=== PATIENT | female | born 1945 | race Caucasian/White ===

== ENCOUNTER 2019-10-23 09:47 | Outpatient (CLI) | payer MEDICARE, SELFPAY ==
--- NOTE | ~2019-10-23 | XR_ITS ---
EXAMINATION: XR TMJ BI DATE: 10/23/2019 10:20 INDICATION: Left jaw pain. TECHNIQUE: 5 views of the temporomandibular joints including open and closed mouth views were obtaine d. COMPARISON: Mandible radiographs 12/17/2016, head CT 06/30/2018 FINDINGS: The mandibular condyles are normal in morphology. There is normal anterior translation of t he mandibular condyles in the open-mouth position. IMPRESSION: 1. Normal temporomandibular joints. Reviewed, dictated and finalized at location A.
== END 2019-10-23 09:48 | disposition home or self-care (01) ==
PROVIDERS: PCP Internal Medicine; Visit Provider Internal Medicine
DX: R68.84 Jaw pain (principal)
CPT/HCPCS: 70330

== ENCOUNTER 2020-01-05 09:25 | Outpatient (CLI) | payer MEDICARE, SELFPAY ==
--- NOTE | ~2020-01-05 | XR_ITS ---
EXAMINATION: XR barium swallow EXAM DATE: 01/05/2020 10:08 INDICATION: Dysphagia, states has episodes where she eats something and then regurgitates it. TECHNIQUE: Standard thick followed by thin contrast barium esophagram examination was performed. The DAP for this procedure was 0.6 Gycm2. There is no prior study for comparison. FINDINGS: The pharynx is symmetric and without evidence of mass lesion or mucosal irregularity. Ther e is no esophageal stricture or mass identified. There are no esophageal diverticula. Gastroesophag eal junction is normal in appearance. IMPRESSION: Normal exam. Reviewed, dictated and finalized at location A. IMPRESSION: Normal exam.
== END 2020-01-05 09:26 | disposition home or self-care (01) ==
PROVIDERS: PCP Internal Medicine; Visit Provider Internal Medicine
DX: R13.10 Dysphagia, unspecified (principal)
CPT/HCPCS: 74220

== ENCOUNTER 2020-01-07 09:51 | Outpatient (CLI) | payer MEDICARE, SELFPAY ==
--- NOTE | ~2020-01-07 | CT_ITS ---
EXAMINATION:CT lung screening DATE: 01/07/2020 10:17 INDICATION: Personal history of tobacco dependence. Current smoker with 32 pack year history. TECHNIQUE: Computed tomography (CT) of the chest was performed without intravenous contrast. Automate d exposure control and iterative reconstruction technique were employed. The dose-length product (DLP ) was 58.20 mGy-cm. COMPARISON: Chest CT 12/19/2017 FINDINGS: There is mild emphysema. There is mild atelectasis bilaterally. There are mild chronic clarence pheral groundglass opacities in the inferior lungs, likely desquamative interstitial pneumonia (DIP) or nonspecific interstitial pneumonia (NSIP). No honeycombing. There is mild bronchiectasis and scarr ing in the inferior lingula. No pleural effusion. The heart size is normal. There are coronary artery calcifications. No pericardial effusion. There is a 1.6 cm cyst in the liver. There is severe cervic al spondylosis and mild thoracic spondylosis. IMPRESSION: 1. Lung-RADS category 2: Benign appearance or behavior. Continue annual screening with noncontrast lo w-dose chest CT in 12 months. Reviewed, dictated and finalized at location A. IMPRESSION: 1. Lung-RADS category 2: Benign appearance or behavior. Continue annual screeni ng with noncontrast low-dose chest CT in 12 months.
== END 2020-01-07 09:52 | disposition home or self-care (01) ==
LOC: ANHIMG 09:58
PROVIDERS: PCP Internal Medicine; Visit Provider Internal Medicine
DX: Z87.891 Personal history of nicotine dependence (principal)
CPT/HCPCS: G0297

== ENCOUNTER → 2020-01-22 12:02 | Outpatient (CLI) | payer MEDICARE, SELFPAY ==
--- NOTE | ~2020-01-22 | MM_ITS ---
EXAMINATION: MM diagnostic ricardo BI w love HISTORY: Palpable right breast abnormality TECHNIQUE: Additional 3-D tomosynthesis images of the breasts were performed and synthetic 2-D images were generated. CAD analysis was submitted and interpreted. COMPARISON: Comparison to multiple prior studies sequentially, with oldest reviewed study dated 12/26. BREAST PARENCHYMAL COMPOSITION: Breast composed of scattered areas of fibroglandular density. FINDINGS: There are no suspicious masses, calcifications or architectural distortion in either breast to suggest malignancy. IMPRESSION: 1. No mammographic evidence for malignancy in either breast. 2. Targeted right breast ultrasound recommended for complete evaluation of palpable abnormality. BI-RADS Category 0: Incomplete: Needs additional imaging evaluation. Reviewed, dictated and finalized at location A. IMPRESSION: 1. No mammographic evidence for malignancy in either breast. 2. Targeted right breast ultrasound recommended for complete evaluation of palp able abnormality. BI-RADS Category 0: Incomplete: Needs additional imaging evaluation.
--- NOTE | ~2020-01-22 | DEXA_ITS ---
Bone Density Report Name: Radha Sánchez Age: 74 Sex: Female Ethnicity: White Date of : 1945 Indication: osteopenia; postmenopausal Referring Provider: STEPH PANDA Study: Bone densitometry was performed. Exam Date: January 22, 2020 Accession number: [id number] Bone Density: Region BMD T-score Z-score Classification AP Spine (L1, L2, L3) 0.832 -1.7 0.7 Osteopenia Femoral Neck (Left) 0.682 -1.5 0.6 Osteopenia Total Hip (Left) 0.724 -1.8 0.0 Osteopenia World Health Organization criteria for BMD impression classify patients as: Normal (T-score at or above -1.0), Osteopenia (T-score between -1.0 and -2.5), or Osteoporosis (T-score at or below -2.5). 10-year Fracture Risk(1): Major Osteoporotic Fracture 12% Hip Fracture 3.8% Reported Risk Factors: [place] (), Neck BMD=0.682, BMI=26.4, smoking (1) FRAX(R) Version 3.08. Fracture probability calculated for an untreated patient. Fracture probability may be lower if the patient has received treatment. Previous Exams: Region Exam Age BMD T-score BMD Change BMD Change Date g/cm2 vs Baseline vs Previous AP Spine(L1, L2, L3) 01/22/2020 74 0.832 -1.7 -0.054* -0.054* 06/05/2004 58 0.886 -1.2 Total Hip(Left) 01/22/2020 74 0.724 -1.8 -0.255* -0.255* 06/05/2004 58 0.979 0.3 *Denotes significance at 95% confidence level, LSC for AP Spine = 0.022 g/cm2, LSC for Total Hip = 0.027 g/cm2 Clinical Information Provided by Patient: Smokes Patient maximum height was 62 Menopause Age: 53 No regular weight bearing exercise Does not regularly consume dairy products Drinks caffeinated beverages Onset of menses at age 12 Number of children 3 Impression: The patient has low bone mass, based on the Left Total Hip T-score. The patient has an estimated ten-year risk of hip fracture of 3.8% and an estimated ten-year risk of major fracture of 12%, based on the WHO FRAX algorithm. The patient has risk factors, including: smoking. The BMD for the AP Spine(L1, L2, L3) decreased, changing by -0.054 since the last DXA exam. The BMD for the Total Hip(Left) decreased, changing by -0.255 since the last DXA exam. Discussion: BONE DENSITY IS LOW AT ONE OR MORE SKELETAL SITES. THE PATIENT'S BMD AND CLINICAL RISK FACTORS CONTRIBUTE TO THIS PATIENT'S INCREASED RISK OF FRACTURE. This patient's lowest T-score is low at one or more skeletal sites. It meets the World Health Organization's (WHO) criteria for ?low bone mass? (T-score between -1.0 and -2.5).
== END ==
PROVIDERS: PCP Internal Medicine; Visit Provider Internal Medicine
DX: R92.8 Other abnormal and inconclusive findings on diagnostic imaging of breast (principal); Z78.0 Asymptomatic menopausal state; M85.88 Other specified disorders of bone density and structure, other site
CPT/HCPCS: 77062; 77066; 77080; G0279

== ENCOUNTER → 2020-01-26 09:05 | Outpatient (CLI) | payer MEDICARE, SELFPAY ==
--- NOTE | ~2020-01-26 | US_ITS ---
EXAMINATION: US breast RT limited HISTORY: Palpable lump of the inner right breast at the 3:00 location TECHNIQUE: Limited right breast ultrasound is performed. FINDINGS: There is no evidence of focal abnormal cystic or solid mass in the vicinity of the reported palpable abnormality of concern. IMPRESSION: No specific sonographic correlate is identified for the reported palpable abnormality of concern. Fur ther evaluation at this time should be based on clinical assessment. Continued follow-up physical exa mination is recommended. BI-RADS Category 1: Negative Reviewed, dictated and finalized at location A. IMPRESSION: No specific sonographic correlate is identified for the reported palpable abnor mality of concern. Further evaluation at this time should be based on clinical assessment. Continued follow-up physical examination is recommended. BI-RADS Category 1: Negative
== END ==
PROVIDERS: Visit Provider Internal Medicine
DX: R92.8 Other abnormal and inconclusive findings on diagnostic imaging of breast (principal)
CPT/HCPCS: 76642

== ENCOUNTER 2020-02-03 08:48 | Outpatient (CLI) | payer MEDICARE, SELFPAY ==
--- NOTE | ~2020-02-03 | US_ITS ---
EXAMINATION: US carotid duplex BI DATE: 02/03/2020 09:30 INDICATION: Carotid bruit. Dizziness. TECHNIQUE: Grayscale, color Doppler, and pulsed Doppler images of the cervical carotid arteries were obtained. The degree of vessel stenosis is placed in one of the following categories: normal, <50%, 5 0-69%, >=70% but less than near-occlusion, near-occlusion, or total occlusion. Note that percent sten osis relative to normal distal artery lumen diameter is indirectly measured from velocity measurement s as described by Manuel, et al. Radiology 2003; 229:340-346. COMPARISON: None. FINDINGS: Cardiac arrhythmias present. RIGHT: The right common carotid artery (CCA) peak systolic velocity (PSV) is 86 cm/s. The right internal car otid artery (ICA) PSV is 113 cm/s. The right ICA end-diastolic velocity (EDV) is 29 cm/s. The right I CA/CCA PSV ratio is 1.3. Grayscale and color Doppler images yield an estimate of <50% diameter reduct ion from plaque in the ICA. The external carotid artery (ECA) PSV is 68 cm/s. There is antegrade flow in the right vertebral artery. LEFT: The left CCA PSV is 90 cm/s. The left ICA PSV is 107 cm/s. The left ICA EDV is 43 cm/s. The left ICA/ CCA PSV ratio is 1.2. Grayscale and color Doppler images yield an estimate of <50% diameter reduction from plaque in the ICA. The ECA PSV is 90 cm/s. There is antegrade flow in the left vertebral artery . IMPRESSION: 1. <50% stenosis in the right internal carotid artery. 2. <50% stenosis in the left internal carotid artery. 3. Cardiac arrhythmias present. Correlate with EKG. Reviewed, dictated and finalized at location A.
== END 2020-02-03 08:49 | disposition home or self-care (01) ==
PROVIDERS: PCP Internal Medicine; Visit Provider Internal Medicine
DX: R09.89 Other specified symptoms and signs involving the circulatory and respiratory systems (principal); I65.23 Occlusion and stenosis of bilateral carotid arteries
CPT/HCPCS: 93880

== ENCOUNTER → 2020-02-10 10:15 | Outpatient (CLI) | payer MEDICARE, SELFPAY ==
--- NOTE | ~2020-02-10 | XR_ITS ---
EXAMINATION: XR sinus min 3V DATE: 02/10/2020 11:33 INDICATION: Headache. Dysphagia. TECHNIQUE: 5 views of the paranasal sinuses were obtained. COMPARISON: Head CT 06/30/2018 FINDINGS: There is leftward deviation of the nasal septum. No fracture. The paranasal sinuses are shereen ar. IMPRESSION: 1. Leftward deviation of the nasal septum. Reviewed, dictated and finalized at location A.
== END ==
PROVIDERS: Visit Provider Internal Medicine
DX: R13.10 Dysphagia, unspecified (principal); J34.2 Deviated nasal septum
CPT/HCPCS: 70220

== ENCOUNTER → 2020-02-11 12:34 | Outpatient (CLI) | payer MEDICARE, SELFPAY ==
--- NOTE | ~2020-02-11 | MR_ITS ---
EXAMINATION: MR thoracic spine wo con DATE: 02/11/2020 13:44 INDICATION: Chest pain. Back pain. TECHNIQUE: Magnetic resonance imaging (MRI) of the thoracic spine was performed without intravenous c ontrast. Sagittal localizer T1-weighted FSE of the cervical spine was obtained. Thoracic spine sequen demetrio included sagittal T2-weighted FSE, sagittal T1-weighted FSE, sagittal T2-weighted FS FSE, and axi al T2-weighted FSE. COMPARISON: Chest CT 01/07/2020 FINDINGS: There is 6 degrees dextrocurvature of thoracic spine. Vertebral body heights and interverte bral disc heights are normal. At T9-T10, there is a central protrusion with mild central canal stenos is. There is multilevel mild to moderate facet joint osteoarthritis. There is mild neural foraminal s tenosis on the right at T1-T2, T2-T3, andT3-T4 and on the left at T3-T4, T4-T5, and T5-T6. The spinal cord signal intensity is normal. The conus medullaris is at T12-L1. There is a 1.7 cm cyst in the li karla. There are cysts in the kidneys measuring up to 1.7 cm on the left. IMPRESSION: 1. Mild thoracic spondylosis. Reviewed, dictated and finalized at location A.
== END ==
PROVIDERS: PCP Internal Medicine; Visit Provider Internal Medicine
DX: R07.9 Chest pain, unspecified (principal); M47.894 Other spondylosis, thoracic region
CPT/HCPCS: 72146

== ENCOUNTER 2020-12-14 12:33 | Outpatient (CLI) | payer MEDICARE, SELFPAY ==
--- NOTE | ~2020-12-14 | XR_ITS ---
XR chest 2V DATE: 12/14/2020 13:09 INDICATION: Left-sided chest pain TECHNIQUE: PA and lateral views COMPARISON: 01/07/2020 CT lung screening 06/13/2015 2 view chest FINDINGS: Normal heart size. Aortic calcification and unfolding. No hilar or mediastinal enlargement. Bilateral hyperinflation. No pulmonary infiltrate or consolidation, pleural effusion or pulmonary vas cular congestion or pneumothorax. Diffuse osteopenia. IMPRESSION: Moderate bilateral hyperinflation No active pulmonary disease Aortic atherosclerosis Reviewed, dictated and finalized at location A.
== END 2020-12-14 12:34 | disposition home or self-care (01) ==
PROVIDERS: PCP Internal Medicine; Visit Provider Internal Medicine
DX: R07.89 Other chest pain (principal); I70.0 Atherosclerosis of aorta
CPT/HCPCS: 71046

== ENCOUNTER → 2021-01-11 11:44 | Outpatient (CLI) | payer MEDICARE, SELFPAY ==
--- NOTE | ~2021-01-11 | CT_ITS ---
EXAMINATION: CT lung screening DATE: 01/11/2021 12:09 INDICATION: Personal history of tobacco dependence, current smoker with 33 pack year history TECHNIQUE: Computed tomography (CT) of the chest was performed without intravenous contrast. The dose -length product (DLP) was 41.97 mGy-cm. Automated exposure control and iterative reconstruction techn [employer] were employed. COMPARISON: 01/07/2020 FINDINGS: There is mild emphysema. There are unchanged subpleural reticular and groundglass opacities with a lower lung zone predominance, consistent with chronic interstitial lung disease. No suspiciou s pulmonary nodules are identified. There is no pleural effusion or pneumothorax. No pathologically e nlarged thoracic lymph nodes are identified. The heart size is normal. Calcified coronary artery athe rosclerosis is noted. There is a 1.6 cm cyst of the liver. There is severe lower cervical and mild th oracic spondylosis. IMPRESSION: 1. Lung-RADS category 1: Negative. Continue annual screening with noncontrast low-dose chest CT in 12 months. Reviewed, dictated and finalized at location A. IMPRESSION: 1. Lung-RADS category 1: Negative. Continue annual screening with noncontrast l ow-dose chest CT in 12 months.
== END ==
PROVIDERS: PCP Internal Medicine; Visit Provider Internal Medicine
DX: Z87.891 Personal history of nicotine dependence (principal)
CPT/HCPCS: 71271

== ENCOUNTER 2021-04-05 15:16 | Outpatient (CLI) | payer MEDICARE, SELFPAY ==
--- NOTE | ~2021-04-05 | MR_ITS ---
EXAMINATION: MR brain/brain stem wo/w con DATE: 04/05/2021 16:56 CDT INDICATION: Memory loss with brain fog. TECHNIQUE: Magnetic resonance imaging (MRI) of the brain and brainstem was performed without and with 11 cc MultiHance intravenous contrast. Sequences included sagittal and axial T1-weighted SE, axial d iffusion-weighted FS SE, axial T2*-weighted GRE, axial T2-weighted FLAIR Propeller, and axial T2-weig hted Propeller. Apparent diffusion coefficient (ADC) maps were created. COMPARISON: CT brain dated 06/30/2018 FINDINGS: The brain volume and ventricular system are within normal limits. The brain parenchymal si gnal intensity pattern and banegas/white matter is normal and there is no evidence of hemorrhage, space occupying masses or infarctions. The flow signal voids of the major arterial structures about the [place] and within the raghu r dural venous sinuses appear grossly unremarkable and patent. The seventh and eighth cranial nerve complexes are normal. The mid sagittal image demonstrates a normal craniovertebral junction and bernabe us callosum. There is a mucous retention cyst of the sphenoid sinus. No air-fluid levels. No abnormal contrast enhancement was appreciated. IMPRESSION: 1: Unremarkable MRI of the brain. Reviewed, dictated and finalized at location A.
[2021-04-05 16:14] LABS: Estimated Glomerular Filt Rate > 60
== END 2021-04-05 15:17 | disposition home or self-care (01) ==
LOC: ANHIMG 15:17
PROVIDERS: PCP Internal Medicine; Visit Provider Internal Medicine
DX: R41.89 Other symptoms and signs involving cognitive functions and awareness (principal); R41.3 Other amnesia
CPT/HCPCS: 70553; A9577

== ENCOUNTER 2021-08-29 09:53 | Outpatient (CLI) | payer MEDICARE, SELFPAY ==
--- NOTE | ~2021-08-29 | XR_ITS ---
EXAMINATION: XR shoulder LT min 2V EXAM DATE: 08/29/2021 10:32 INDICATION: Left shoulder pain, symptoms 6 months. TECHNIQUE: The following left shoulder projections obtained: frontal projection with internal rotatio n, frontal projection with external rotation, Grashey, and scapular Y view (4+ views). There is no p rior study for comparison. FINDINGS: No evidence of left shoulder rotator cuff calcific tendinosis. There is mild to moderate g lenohumeral joint, mild to moderate acromioclavicular joint primary osteoarthritis. There are no acut e fractures or dislocations identified. There is no subcutaneous gas. The soft tissue is unremarkab le. There are no radiopaque foreign bodies. 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 Reviewed, dictated and finalized at location G.
--- NOTE | ~2021-08-29 | XR_ITS ---
EXAMINATION: XR_CERV2-3V_CR EXAM DATE: 08/29/2021 10:31 INDICATION: No known recent injury provided at this time. Pain of the cervical spine, left-sided TECHNIQUE: Cervical spine frontal lateral, open-mouth odontoid projections. There is no prior study for comparison. FINDINGS: There is moderate disc disease at C5-6 and 6-7. The vertebral bodies are aligned in the AP dimension. There are no acute fractures identified. The odontoid process is intact. The lateral mas ses of C1 line up with C2. Prevertebral soft tissue and pre-dens space are within normal limits. Mode rate cervical arthropathy. IMPRESSION: Moderate cervical spondylosis. Reviewed, dictated and finalized at location .
--- NOTE | ~2021-08-29 | XR_ITS ---
EXAMINATION: XR thoracic spine 2V EXAM DATE: 08/29/2021 10:32 INDICATION: M54.9 - Dorsalgia, unspecified. TECHNIQUE: Frontal and lateral projections of the thoracic spine as well as lateral swimmers projecti on of the upper thoracic spine for interpretation. Comparison is made to prior examination from 016. FINDINGS: There is mild lower thoracic levoscoliosis. There is aortic arteriosclerosis. Mild mid tho racic disc disease. The vertebral body and disc heights are otherwise well maintained. The vertebral bodies are aligned in the AP dimension. There are no acute fractures identified. There are no bony er osions identified. Paraspinal soft tissue is unremarkable. IMPRESSION: 1. Mild thoracic spondylosis. Reviewed, dictated and finalized at location G.
== END 2021-08-29 09:54 | disposition home or self-care (01) ==
LOC: ANHIMG 10:00
PROVIDERS: PCP Internal Medicine; Visit Provider Internal Medicine
DX: M19.012 Primary osteoarthritis, left shoulder (principal); M47.813 Spondylosis without myelopathy or radiculopathy, cervicothoracic region
CPT/HCPCS: 72040; 72070; 73030

== ENCOUNTER → 2022-01-15 07:31 | Outpatient (CLI) | payer MEDICARE, SELFPAY ==
--- NOTE | ~2022-01-15 | MM_ITS ---
EXAMINATION: MM screening ricardo BI w love HISTORY: Screening mammogram, family history of breast cancer in her mother. TECHNIQUE: Craniocaudal and mediolateral oblique 3-D tomosynthesis images were obtained and synthetic 2-D images were generated. CAD analysis was submitted and interpreted. COMPARISON: 01/22/2020, 02/02/2019, 12/27/2017 BREAST PARENCHYMAL COMPOSITION: There are scattered areas of fibroglandular density. FINDINGS: There is no suspicious mass, calcification, or architectural distortion to suggest malignan cy in either breast. There has been no suspicious interval change. IMPRESSION: 1. No mammographic evidence of malignancy. 2. Recommend routine screening mammography in one year. BI-RADS Category 1: Negative Reviewed, dictated and finalized at location A.
--- NOTE | ~2022-01-15 | CT_ITS ---
EXAMINATION: CT lung screening DATE: 01/15/2022 08:22 INDICATION: Personal history of tobacco abuse TECHNIQUE: Computed tomography (CT) of the chest was performed without intravenous contrast. The dose -length product was 52.36 mGy-cm. Automated exposure control and iterative reconstruction technique w ere employed. COMPARISON: CT dated 01/11/2021 FINDINGS: No thoracic lymphadenopathy. There is atherosclerosis of the aorta and coronary arteries. T here is ectasia of the descending thoracic aorta. No significant pleural or pericardial effusion. No endobronchial lesions. There are small 1-2 mm subpleural nodules in the upper lobes. Mild emphysema. No endobronchial lesions. No pneumothorax. IMPRESSION: 1. Lung-RADS category 2: Benign appearance or behavior. Continue annual screening with noncontrast lo w-dose chest CT in 12 months. Reviewed, dictated and finalized at location A. IMPRESSION: 1. Lung-RADS category 2: Benign appearance or behavior. Continue annual screeni ng with noncontrast low-dose chest CT in 12 months.
== END ==
PROVIDERS: PCP Internal Medicine; Visit Provider Internal Medicine
DX: Z12.31 Encounter for screening mammogram for malignant neoplasm of breast (principal); Z87.891 Personal history of nicotine dependence
CPT/HCPCS: 71271; 77063; 77067

== ENCOUNTER 2022-02-14 10:29 | Outpatient (CLI) | payer MEDICARE, SELFPAY ==
--- NOTE | ~2022-02-14 | XR_ITS ---
EXAM: XR thoracic spine 3V DATE: 02/14/2022 16:20 HISTORY: R53.1 - Weakness;fell today, low back pain . COMPARISON: None available. FINDINGS: Mild scoliosis. Osteopenia. Vertebral body alignment intact. Vertebral body heights preserv ed. Multilevel degenerative disc disease. No traumatic malalignment or fracture. Visualized lung pare nchyma is clear. IMPRESSION: No acute fracture or traumatic malalignment detected in the thoracic spine. Reviewed, dictated and finalized at location K. IMPRESSION: No acute fracture or traumatic malalignment detected in the thoraci c spine.
--- NOTE | ~2022-02-14 | XR_ITS ---
EXAMINATION: XR chest 2V Exam Date/Time: 02/14/2022 16:02 CDT HISTORY: W19.XXXA - Unspecified fall, initial encounter;low back pain Comparison: 12/14/2020. RESULT: Lines, tubes, and devices: None. Lungs and pleura: Senescent change and minimal bibasilar atelectasis/scar. Cardiomediastinal silhouette: Stable. Other: No acute osseous or upper abdominal finding. IMPRESSION: No acute cardiopulmonary process. Reviewed, dictated and finalized at location K.
--- NOTE | ~2022-02-14 | CT_ITS ---
EXAMINATION: CT brain wo/w con DATE: 02/14/2022 16:34 INDICATION: Headache cognitive changes and memory loss TECHNIQUE: Computed tomography (CT) of the head was performed without and with 100 mL Omnipaque-350 i ntravenous contrast. Sagittal and coronal reconstructions were performed. The mA was adjusted accordi ng to patient size. Iterative reconstruction technique was employed. The dose-length product was 1210 .67 mGy-cm. COMPARISON: head CT dated 06/30/2018 and brain MR dated 04/05/2021 FINDINGS: No acute intracranial hemorrhage, acute infarction or abnormal extra axial fluid collection. Ventricl es are normal and symmetric. No mass/mass effect. No abnormally enhancing lesions identified. Changes of bilateral intraocular lens replacement. The orbits, paranasal sinuses and mastoid air cells are n ormal. IMPRESSION: 1. Normal aging brain. No acute intracranial process or abnormally enhancing brain lesions. Reviewed, dictated and finalized at location A. IMPRESSION: 1. Normal aging brain. No acute intracranial process or abnormally enhancing br ain lesions.
--- NOTE | ~2022-02-14 | XR_ITS ---
EXAM: XR lumbar spine 2-3V DATE: 02/14/2022 16:21 HISTORY: R53.1 - Weakness; fall today, low back pain . COMPARISON: 04/17/2019. FINDINGS: Mild scoliosis. Incompletely visualized right hip arthroplasty. 5 nonrib-bearing lumbar-typ e vertebral bodies. Pedicles intact. Normal vertebral body alignment. Stable superior endplate and an terior wedge deformity at L4. Stable multilevel concave endplate deformities. Multilevel degenerative disc disease. Multilevel facet arthropathy. No fracture or dislocation. Abdominal aortic calcificati ons without evident aneurysm. IMPRESSION: No acute fracture or traumatic malalignment detected in the lumbar spine. Reviewed, dictated and finalized at location K.
[2022-02-14 11:38] LABS: Add Urine Microscopic? YES; Appearance Urine Clear (Clear); Bilirubin Urine 1+ (Negative); Blood Urine 3+ (Negative); Color Urine Yellow (Yellow); Glucose Urine UA Negative (Negative); Ketones Urine Trace mg/dL (Negative); Leukocyte Esterase Ur Negative LEU/UL (Negative); Nitrate Urine Negative (Negative); Protein Urine 2+ mg/dL (Negative); Specific Grav Ur 1.025 (1.001-1.035); pH Urine 5.5 (5.0-9.0)
[2022-02-14 11:39] LABS: Basophils Percent Auto 0.4 % (0.2-1.2); Eosinophils Percent Auto 0.4 % (0-4.4); Hematocrit 43.4 % (37.0-47.0); Hemoglobin 14.5 g/dL (12.0-15.0); Immature Granulocyte Absolute 0.04 K/mm3 (0.00-0.031); Immature Granulocyte Percent A 0.4 % (0-0.5); Lymphocytes Absolute Auto 1.21 K/mm3 (0.9-3.2); Lymphocytes Percent Auto 12.3 % (18.3-44.2); Mean Corpuscular HGB Conc 33.4 g/dl (32-36); Mean Corpuscular Hemoglobin 30.4 pg (26-34); Mean Platelet Volume 10.7 fl (7.4-10.4); Monocytes Absolute Auto 0.6 K/mm3 (0.1-0.6); Monocytes Percent Auto 5.9 % (2.6-8.5); Neutrophils Absolute Auto 7.9 K/mm3 (1.3-6.7); Neutrophils Percent Auto 80.6 % (45.5-73.1); Platelet Count Result 299 k/mm3 (150-375); Red Blood Count 4.77 M/mm3 (4.2-5.4); Red Cell Distribution Width 14.8 % (11.5-14.5); White Blood Count 9.8 K/mm3 (4.5-10.0)
[2022-02-14 11:54] LABS: Alanine Aminotransferase 38 U/L (6-35); Albumin Level 3.9 g/dL (3.5-5.1); Alkaline Phosphatase 103 U/L (38-126); Anion Gap 12 mmol/L (8-16); Aspartate Amino Transferase 56 U/L (14-36); Bilirubin,Total 0.5 mg/dL (0.2-1.3); Blood Urea Nitrogen 22 mg/dL (7-17); Calcium 8.9 mg/dL (8.4-10.2); Carbon Dioxide 24 mmol/L (22-30); Chloride 102 mmol/L (98-107); Creatine Kinase 272 U/L (30-135); Estimated Glomerular Filt Rate 54; Glucose 90 mg/dL (65-110); Lactate Dehydrogenase 259 U/L (120-246); Potassium 3.4 mmol/L (3.4-5.0); Sodium 138 mmol/L (137-145)
[2022-02-14 12:00] LABS: RBC Urine >75 /hpf (0-2); Squamous Epithelial Cell Urine Few /hpf (Few); Transitional Epi Cells Urine Few /hpf (None Seen)
[2022-02-14 12:01] LABS: Bacteria Urine 2+ /hpf
[2022-02-14 12:20] LABS: Erythrocyte Sedimentation Rate 20 mm/hr (0-20)
[2022-02-17 10:45] LABS: Aldolase 6.6 U/L (<=8.1)
== END 2022-02-14 10:30 | disposition home or self-care (01) ==
PROVIDERS: PCP Internal Medicine; Visit Provider Internal Medicine
DX: R53.1 Weakness (principal); R52 Pain, unspecified; R41.89 Other symptoms and signs involving cognitive functions and awareness; R41.3 Other amnesia; R53.83 Other fatigue
CPT/HCPCS: 36415; 70470; 71046; 72072; 72100; 80053; 81001; 82085; 82550; 83615; 85025; 85652; 86140; Q9967

== ENCOUNTER 2022-02-17 11:04 | Outpatient (CLI) | payer MEDICARE, SELFPAY ==
[2022-02-17 13:43] LABS: Anion Gap 9 mmol/L (8-16); Blood Urea Nitrogen 14 mg/dL (7-17); Calcium 9.1 mg/dL (8.4-10.2); Carbon Dioxide 25 mmol/L (22-30); Chloride 104 mmol/L (98-107); Creatine Kinase 96 U/L (30-135); Estimated Glomerular Filt Rate > 60; Glucose 100 mg/dL (65-110); Lactate Dehydrogenase 210 U/L (120-246); Potassium 3.6 mmol/L (3.4-5.0); Sodium 138 mmol/L (137-145)
== END 2022-02-17 11:05 | disposition home or self-care (01) ==
LOC: ANHLAB 11:08
PROVIDERS: PCP Internal Medicine; Visit Provider Internal Medicine
DX: I10 Essential (primary) hypertension (principal); M62.82 Rhabdomyolysis; R53.1 Weakness
CPT/HCPCS: 36415; 80048; 82550; 83615

== ENCOUNTER → 2022-02-20 13:50 | Outpatient (CLI) | payer MEDICARE, SELFPAY ==
--- NOTE | ~2022-02-20 | CT_ITS ---
EXAMINATION: CT abdomen pelvis wo con DATE: 02/20/2022 14:13 INDICATION: Microscopic hematuria TECHNIQUE: Computed tomography (CT) of the abdomen and pelvis was performed without intravenous contr ast. The dose-length product (DLP) was 487.25 mGy-cm. Automated exposure control and iterative recons truction technique were employed. COMPARISON: 12/26/2016 FINDINGS: There are chronic subpleural reticular and groundglass opacities in the visualized lung bas es with slight improvement. The heart size is normal. The gallbladder is surgically absent. There is mild enlargement of the common bile duct and central intrahepatic ducts which is likely due to post c holecystectomy state. The liver, spleen, pancreas, and adrenal glands are normal. There are multiple cysts of the kidneys which measure up to 9.1 cm on the left. There is subtle linear opacification of the kidneys at the cortical medullary junctions which may relate to persistent nephrogram from recent contrast-enhanced CT. No pathologically enlarged abdominal or pelvic lymph nodes are identified. The re is calcified atherosclerosis of the aorta and many of the other arteries. There is no free intrape ritoneal gas or evidence of bowel obstruction. The appendix is normal. A moderate volume of colonic s tool is present. A chronic L4 compression fracture is noted. There is a mild superior endplate deform ity of the L5 vertebral body. Changes of right total hip arthroplasty are noted. IMPRESSION: 1. No CT correlate for the patient's symptoms. Reviewed, dictated and finalized at location B.
== END ==
PROVIDERS: PCP Internal Medicine; Visit Provider Internal Medicine
DX: R31.29 Other microscopic hematuria (principal)
CPT/HCPCS: 74176

== ENCOUNTER 2022-07-26 11:55 | Outpatient (CLI) | payer MEDICARE, SELFPAY ==
--- NOTE | ~2022-07-26 | MR_ITS ---
EXAMINATION: MR brain/brain stem wo/w con DATE: 07/26/2022 13:04 INDICATION: Change in cognition. TECHNIQUE: Magnetic resonance imaging (MRI) of the brain and brainstem was performed without and with 12 mL MultiHance intravenous contrast. COMPARISON: Brain MRI 04/05/2021, head CT 02/14/2022 FINDINGS: There are scattered areas of nonspecific increased T2-weighted signal intensity in the cere bral white matter and maria t, which is within normal limits for the patient's age. There is no intracra nial hemorrhage, acute infarction, or abnormal intracranial mass lesion. The ventricles are normal in size. There is mild mucosal thickening in the ethmoid sinuses. There are likely changes of ocular le ns replacement surgeries. The mastoid air cells are normal. IMPRESSION: 1. Normal aging brain. Reviewed, dictated and finalized at location A. 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 Normal aging brain.
--- NOTE | ~2022-07-26 | US_ITS ---
. EXAMINATION: US carotid duplex BI DATE: 07/26/2022 14:16 INDICATION: History of stroke symptoms. TECHNIQUE: Grayscale, color Doppler, and pulsed Doppler images of the cervical carotid arteries were obtained. The degree of vessel stenosis is placed in one of the following categories: normal, <50%, 5 0-69%, >=70% but less than near-occlusion, near-occlusion, or total occlusion. Note that percent sten osis relative to normal distal artery lumen diameter is indirectly measured from velocity measurement s as described by Manuel, et al. Radiology 2003; 229:340-346. Notes: Normal: Peak systolic velocity <125 centimeters/sec and no plaque <50%. Peak systolic velocity <125 ( EDV <40; ICA/CCA PSV ratio <2.0; used these factors only a tandem lesions or low cardiac output or co ntralateral disease) 50-69 %: PSV 125-230 (EDV 40-100; ratio 2-4) >= 70% but less than near occlusion: PSV greater than 230 (EDV > 100; ratio> 4.0) Near Occlusion: PSV that is variable; markedly narrowed lumen Occlusion: Absent flow on color/spectral Doppler and no lumen on banegas scale. COMPARISON: Ultrasound dated 02/03/2020. FINDINGS: RIGHT: The right common carotid artery (CCA) peak systolic velocity (PSV) is 78 cm/s. The right internal car otid artery (ICA) PSV is 57 cm/s. The right ICA end-diastolic velocity (EDV) is 15 cm/s. The right IC A/CCA PSV ratio is 0.7. The external carotid artery (ECA) PSV is 51 cm/s. There is antegrade flow in the right vertebral artery. LEFT: The left CCA PSV is 53 cm/s. The left ICA PSV is 68 cm/s. The left ICA EDV is 20 cm/s. The left ICA/C CA PSV ratio is 1.3. The ECA PSV is 47 cm/s. There is antegrade flow in the left vertebral artery. IMPRESSION: 1. Less than 50% stenosis in the right internal carotid artery by sonographic criteria. 2. Less than 50% stenosis in the left internal carotid artery by sonographic criteria. Reviewed, dictated and finalized at location A. TRAINER MAINTENANCE MAN IMPRESSION: 1. Less than 50% stenosis in the right internal carotid artery by sonographic katty wooten. 2. Less than 50% stenosis in the left internal carotid artery by sonographic aysha interiano.
== END 2022-07-26 11:56 | disposition home or self-care (01) ==
PROVIDERS: PCP Internal Medicine; Visit Provider Internal Medicine
DX: R41.89 Other symptoms and signs involving cognitive functions and awareness (principal); R53.1 Weakness; R41.3 Other amnesia; R09.89 Other specified symptoms and signs involving the circulatory and respiratory systems; I65.23 Occlusion and stenosis of bilateral carotid arteries
CPT/HCPCS: 70553; 93880; A9577

== ENCOUNTER 2022-10-26 10:04 | Outpatient (CLI) | payer MEDICARE, SELFPAY ==
--- NOTE | ~2022-10-26 | XR_ITS ---
EXAMINATION: XR barium swallow modified DATE: 10/26/2022 11:29 INDICATION: Dysphagia, unspecified. TECHNIQUE: The patient was given barium-containing material of multiple consistencies to swallow by t paul speech pathologist while I performed fluoroscopy. Fluoroscopy exposure time was 0.7 minutes. The n umber of fluoroscopy images saved to the PACS was 2. Dose-area product was 0.442 Gy-cm^2. FINDINGS: The oral stage, pharyngeal stage, and cervical/esophageal stage of the swallow are normal. IMPRESSION: 1. Normal modified barium swallow. 2. Please refer to the speech therapy report for recommendations. Reviewed, dictated and finalized at location A.
--- NOTE | 2022-10-26 11:49 | REHSTMBS ---
Assessment and note entered by Jenifer Monzon, BRYOLOGIST Modified Barium Swallow Evaluation Feeding Type Recommended Oral Food Consistency Regular, Level 7 Liquid Consistency Thin (0) ST Clinical Summary MODIFIED BARIUM SWALLOW STUDY (MBS) Patient was seen for a Modified Barium Swallow to address her concerns for swallowing. Patient reports that she has noticed that since having signs of a mild stroke last February, softer foods such as pudding or yougrt have reached a level below the cricopharyngeal sphincter and then returned back into her mouth causing her to expectorate them. She indicated that this seems to occur on a somewhat regular basis. Aleksey was presented with 1/2 teaspoon thin liquid contrast medium then thin liquid per cup and per straw, pudding mixed with semi-solid contrast medium, and then pieces of karen cracker coated with the contrast medium. On each presentation, patient elicited quick swallows with no significant pharyngeal residue after the swallows and no evidence of penetration or aspiration into the airway. Although this assessment does not assess risk for reflux, none was observed during this assessment. Results suggest the patient may continue to eat a Regular Diet with Regular Liquids although she may want to adjust to reduce any risk of her complaints. She is referred back to her physican for further assessment of her complaints. Thank you for this referral.
--- NOTE | 2022-10-26 11:52 | REHSTMBS ---
Assessment and note entered by Jenifer Monzon, EPIC ANESTHESIA ANALYST Modified Barium Swallow Evaluation Feeding Type Recommended Oral Food Consistency Regular, Level 7 Liquid Consistency Thin (0) ST Clinical Summary MODIFIED BARIUM SWALLOW STUDY (MBS) Patient was seen for a Modified Barium Swallow to address her concerns for swallowing. Patient reports that she has noticed that since having signs of a mild stroke last February, softer foods such as pudding or yogurt have reached a level below the cricopharyngeal sphincter and then returned back into her mouth causing her to expectorate them. She indicated that this seems to occur on a somewhat regular basis. Aleksey was presented with 1/2 teaspoon thin liquid contrast medium then thin liquid per cup and per straw, pudding mixed with semi-solid contrast medium, and then pieces of karen cracker coated with the contrast medium. On each presentation, patient elicited quick swallows with no significant pharyngeal residue after the swallows and no evidence of penetration or aspiration into the airway. Although this assessment does not assess risk for reflux, none was observed during this assessment. Results suggest the patient may continue to eat a Regular Diet with Regular Liquids although she may want to adjust to reduce any risk of her complaints. She is referred back to her physican for further assessment of her complaints. Thank you for this referral.
== END 2022-10-26 10:05 | disposition home or self-care (01) ==
PROVIDERS: PCP Internal Medicine; Visit Provider Internal Medicine
DX: R13.10 Dysphagia, unspecified (principal)
CPT/HCPCS: 92611

== ENCOUNTER 2023-07-25 14:24 | Outpatient (CLI) | payer MEDICARE, SELFPAY ==
--- NOTE | ~2023-07-25 | CT_ITS ---
EXAMINATION: CT diagnostic chest wo con DATE: 07/25/2023 14:42 INDICATION: Z72.0 - Tobacco use TECHNIQUE: Computed tomography (CT) of the chest was performed without intravenous contrast. Addition al 3D reconstructions utilizing coronal maximum intensity projection (MIP) were performed. Automated exposure control and iterative reconstruction technique were employed. The dose-length product was 53 .04 mGy-cm. COMPARISON: 01/15/2022 FINDINGS: Mild emphysema. Unchanged mild discoid atelectasis/scarring in the lingula. Additional persistent mil d dependent atelectasis in bilateral lower lobes. No interval change in a 4 mm subpleural nodule at t he posterior segment of the right upper lobe. No new or enlarging pulmonary nodules, pneumonia, pulmo nary edema or pleural effusion. Heart size is normal. Atherosclerotic coronary artery calcifications. Thoracic aorta is normal in caliber. No pathologically enlarged abdominal or pelvic lymphadenopathy. Low-attenuation left renal cysts the largest a partially visualized measuring at least 3 cm. Mild th oracic spondylosis. IMPRESSION: 1. Lung-RADS category 2: Benign appearance or behavior. Continue annual screening with noncontrast lo w-dose chest CT in 12 months. Reviewed, dictated and finalized at location A. ING AID ASSISTANT IMPRESSION: 1. Lung-RADS category 2: Benign appearance or behavior. Continue annual screeni ng with noncontrast low-dose chest CT in 12 months.
== END 2023-07-25 14:25 ==
LOC: MICIMG 14:27
PROVIDERS: PCP Internal Medicine; Visit Provider Internal Medicine
DX: Z87.891 Personal history of nicotine dependence (principal)
CPT/HCPCS: 71250

== ENCOUNTER 2023-08-15 09:01 | Outpatient (CLI) | payer MEDICARE, SELFPAY ==
--- NOTE | ~2023-08-15 | XR_ITS ---
EXAMINATION: XR sinus min 3V DATE: 08/15/2023 09:42 INDICATION: Chronic cough TECHNIQUE: AP, submental, Kelly, Kelly and lateral views of the paranasal sinuses were obtained. COMPARISON: None. FINDINGS: No maxillofacial fractures identified. Slight leftward bowing of the nasal septum. Paranasal sinuses appear well aerated with no evident mucosal thickening or air-fluid levels. Mandible is edentulous an d multiple dental restorations along the maxilla. IMPRESSION: 1. Unremarkable study with no abnormal opacification of the paranasal sinuses. Reviewed, dictated and finalized at location A. ING MIXER SUPERVISOR
--- NOTE | ~2023-08-15 | XR_ITS ---
EXAMINATION: XR chest 2V DATE: 08/15/2023 09:43 INDICATION: Chronic cough TECHNIQUE: PA and lateral views of the chest were obtained. COMPARISON: Chest radiograph dated 02/14/[address] dated 07/25/2023 FINDINGS: The lungs are clear with no focal airspace opacities, pulmonary edema, pleural effusion or pneumothor ax. The cardiomediastinal silhouette is normal. Mild thoracic spondylosis. IMPRESSION: 1. No acute cardiopulmonary disease. Reviewed, dictated and finalized at location A. [employer]
[2023-08-15 09:49] LABS: Basophils Percent Auto 0.5 % (0.2-1.2); Eosinophils Percent Auto 0.2 % (0-4.4); Hematocrit 45.4 % (37.0-47.0); Immature Granulocyte Absolute 0.02 K/mm3 (0.00-0.031); Immature Granulocyte Percent A 0.4 % (0-0.5); Lymphocytes Absolute Auto 1.25 K/mm3 (0.9-3.2); Lymphocytes Percent Auto 21.9 % (18.3-44.2); Mean Corpuscular Hemoglobin 31.5 pg (26-34); Mean Corpuscular Volume 95.4 fl (80-100); Mean Platelet Volume 10.1 fl (7.4-10.4); Monocytes Absolute Auto 0.6 K/mm3 (0.1-0.6); Monocytes Percent Auto 10.2 % (2.6-8.5); Neutrophils Absolute Auto 3.8 K/mm3 (1.3-6.7); Neutrophils Percent Auto 66.8 % (45.5-73.1); Platelet Count Result 233 k/mm3 (150-375); Red Blood Count 4.76 M/mm3 (4.2-5.4); White Blood Count 5.7 K/mm3 (4.5-10.0)
[2023-08-15 10:02] LABS: Alanine Aminotransferase 26 U/L (6-35); Albumin Level 3.4 g/dL (3.5-5.1); Alkaline Phosphatase 70 U/L (38-126); Anion Gap 8 mmol/L (8-16); Aspartate Amino Transferase 45 U/L (14-36); Bilirubin,Total 0.2 mg/dL (0.2-1.3); Blood Urea Nitrogen 12 mg/dL (7-17); CRP 0.8 mg/dL (<1.0); Calcium 8.4 mg/dL (8.4-10.2); Carbon Dioxide 23 mmol/L (22-30); Chloride 106 mmol/L (98-107); Estimated Glomerular Filt Rate > 60; Glucose 190 mg/dL (65-110); Potassium 3.7 mmol/L (3.4-5.0); Sodium 137 mmol/L (137-145)
[2023-08-15 10:26] LABS: Influenza A QL RT-PCR Positive (Negative); Influenza B QL RT-PCR Negative (Negative); RSV RNA, RT-PCR Negative (Negative); SARS-CoV-2 RNA PCR Negative (Negative)
[2023-08-15 10:36] LABS: Erythrocyte Sedimentation Rate 42 mm/hr (0-20)
== END 2023-08-15 09:02 | disposition home or self-care (01) ==
PROVIDERS: PCP Internal Medicine; Visit Provider Internal Medicine
DX: R05.9 Cough, unspecified (principal); R50.9 Fever, unspecified; R53.1 Weakness; R53.83 Other fatigue; J34.89 Other specified disorders of nose and nasal sinuses; R09.81 Nasal congestion
CPT/HCPCS: 36415; 70220; 71046; 80053; 85025; 85652; 86140; 87637

== ENCOUNTER 2023-08-31 10:52 | Observation (INO) | payer MEDICARE, SELFPAY ==
--- NOTE | ~2023-08-31 | XR_ITS ---
XR forearm RT 2V 08/31/2023 13:52 INDICATION: Right arm pain PROCEDURE: 2 views right forearm COMPARISON: No prior studies for comparison. FINDINGS: Fracture, dislocation or subluxation is not identified. There is nonspecific sclerosis of t he lunate. The soft tissues appear within normal limits. No foreign bodies are identified. IMPRESSION: 1: NO ACUTE BONE OR JOINT ABNORMALITY IDENTIFIED. Reviewed, dictated and finalized at location A.
[2023-08-31 11:02] VITALS: BP 142/68; PULSE 104; RESP 16; TEMP 36.3; O2SAT 97
--- NOTE | 2023-08-31 11:44 | ED.ANIMALBIT ---
HPI - Animal Bite General Chief Complaint: Animal Bite <KRYSTIN Lujan Last Filed: 08/31/23 13:48> Stated Complaint: CAT BITE R ARM <KRYSTIN Lujan Last Filed: 08/31/23 13:48> Time Seen by Provider: 08/31/23 11:24 <KRYSTIN Lujan Last Filed: 08/31/23 13:48> Source: patient <KRYSTIN Lujan Last Filed: 08/31/23 13:48> Mode of arrival: ambulatory <KRYSTIN Lujan Last Filed: 08/31/23 13:48> Limitations: no limitations <KRYSTIN Lujan Last Filed: 08/31/23 13:48> History of Present Illness HPI narrative: Patient is a 77-year-old female who presents the ED with report of a cat bite to her right arm. Patient reports she was bitten by her own house cat yesterday morning to her R ventral forearm. She contacted her primary care doctor and was started on oral antibiotics. Has had 3 doses of augmentin. She has since developed streaking redness to her upper arm, swelling, increased pain. Referred to the ED for further evaluation. Patient has not taken anything for pain. Denies fevers. Denies n/v, numbness. Cat is up-to-date on vaccines. Tetanus unknown. <KRYSTIN Lujan Last Filed: 08/31/23 13:48> Related Data Home Medications: Home Medications Medication Instructions Recorded Confirmed cholecalciferol (vitamin D3) 50 50 mcg PO DAILY 01/04/22 08/31/23 mcg (2,000 unit) tablet nitroglycerin 0.4 mg sublingual See Rx Instructions .Route 08/31/23 08/31/23 tablet .COMPLEX PRN Chest Pain <KRYSTIN Lujan Last Filed: 08/31/23 13:48> Allergies/Adverse Reactions: Allergies Allergy/AdvReac Type Severity Reaction Status Date / Time procaine [From Novocain] Allergy Unknown shock Verified 08/31/23 11:24 <Natividad Hyman PA-C - Last Filed: 08/31/23 13:48> Review of Systems Review of Systems: CONSTITUTIONAL: Denies fever, chills, or sweats. SKIN: See HPI MUSCULOSKELETAL: See HPI NEUROLOGIC: Denies headache, dizziness, numbness, or weakness. <Natividad Hyman PA-C - Last Filed: 08/31/23 13:48> All systems reviewed & are unremarkable except as noted in HPI and below <Natividad Hyman PA-C - Last Filed: 08/31/23 13:48> [facility] Past Medical History Medical History: Medical History (Updated 08/31/23 @ 13:48 by Diana Vincent PA-C) Anxiety and depression Arteriosclerotic heart disease Chronic fatigue Chronic low back pain with bilateral sciatica Chronic pain of left heel Degenerative joint disease Gastroesophageal reflux disease Hearing loss Hyperlipidemia Hypertension Hypothyroidism Insomnia Microvascular angina Prediabetes Shingles Tobacco abuse Vitamin D deficiency <Natividad Hyman PA-C - Last Filed: 08/31/23 13:48> Surgical History Surgical History: Surgical History H/O shoulder surgery S/P hip replacement <Natividad Hyman PA-C - Last Filed: 08/31/23 13:48> Family History Family History: Family History Mother Family history of malignant neoplasm of breast in first degree relative <Natividad Hyman PA-C - Last Filed: 08/31/23 13:48> Social History Social History: Social History (Updated 08/31/23 @ 13:46 by Diana Vincent PA-C) Social History: Surrogate medical decision maker: Sveta Sánchez, daughter. Code status: Full code. Smoking packs per day: 1 Smoking cigarettes per day: 20.0 Smoking status: Current every day smoker Tobacco type: cigarettes Alcohol intake: never Substance use: never Do You Feel Safe in your Home?: Yes Lack of Transportation: No Lack of Food: Never True Current Housing: I Have Housing Concerned About Future Housing: No Difficulty Paying Gas/Electric Bills: No Difficulty Paying for Meds: No Currently Unemployed:
[2023-08-31 11:56] LABS: Basophils Absolute Auto 0.1 K/mm3 (0.0-0.1); Basophils Percent Auto 0.7 % (0.2-1.2); Eosinophils Percent Auto 0.3 % (0-4.4); Hematocrit 43.5 % (37.0-47.0); Hemoglobin 14.2 g/dL (12.0-15.0); Immature Granulocyte Absolute 0.03 K/mm3 (0.00-0.031); Immature Granulocyte Percent A 0.3 % (0-0.5); Lymphocytes Absolute Auto 1.23 K/mm3 (0.9-3.2); Lymphocytes Percent Auto 13.7 % (18.3-44.2); Mean Corpuscular HGB Conc 32.6 g/dl (32-36); Mean Corpuscular Hemoglobin 31.4 pg (26-34); Mean Corpuscular Volume 96.2 fl (80-100); Mean Platelet Volume 9.4 fl (7.4-10.4); Monocytes Absolute Auto 0.6 K/mm3 (0.1-0.6); Monocytes Percent Auto 6.9 % (2.6-8.5); Neutrophils Percent Auto 78.1 % (45.5-73.1); Platelet Count Result 300 k/mm3 (150-375); Red Blood Count 4.52 M/mm3 (4.2-5.4); Red Cell Distribution Width 15.2 % (11.5-14.5)
[2023-08-31 12:05] LABS: Lactic Acid Reflex 1.1 mmol/L (0.7-2.0)
[2023-08-31 12:07] LABS: Alanine Aminotransferase 35 U/L (6-35); Albumin Level 3.6 g/dL (3.5-5.1); Alkaline Phosphatase 65 U/L (38-126); Anion Gap 3 mmol/L (8-16); Aspartate Amino Transferase 43 U/L (14-36); Bilirubin,Total 0.5 mg/dL (0.2-1.3); Blood Urea Nitrogen 15 mg/dL (7-17); Calcium 9.2 mg/dL (8.4-10.2); Carbon Dioxide 27 mmol/L (22-30); Chloride 108 mmol/L (98-107); Estimated CRCL calculation 52 ml/min; Estimated Glomerular Filt Rate > 60; Glucose 116 mg/dL (65-110); Sodium 138 mmol/L (137-145)
[2023-08-31] MEDS: MORPHINE SULFATE (*CRX) 2 MG/ML INJ IV PUSH (12:14)
[2023-08-31] MEDS: ONDANSETRON INJ 4 MG/2 ML VIAL IV PUSH (12:14)
[2023-08-31] MEDS: AMPICILLIN SULB 3 GM/NS 100 ML 3 GM/100 ML VIAL IVPB ×3 (12:14→23:15)
[2023-08-31] MEDS: TETANUS,DIPHTHERIA,AC PERTUSSIS ADULT (0.5 ML) BOOSTRIX IM (12:22)
[2023-08-31 12:26] LABS: Erythrocyte Sedimentation Rate 71 mm/hr (0-20)
--- NOTE | 2023-08-31 13:10 | ECG_ITS ---
Measurements Intervals [place] Rate: 90 P: 40 MS: 155 QRS: -40 QRSD: 104 T: 60 QT: 364 QTc: 447 Interpretive Statements SINUS RHYTHM LEFT AXIS DEVIATION DELAYED PRECORDIAL R/S TRANSITION NONSPECIFIC T-WAVE ABNORMALITY- ANTERIOR LEADS BASELINE WANDER- II, III, AVF, V1-V6 BORDERLINE ECG NO PREVIOUS ECG AVAILABLE FOR COMPARISON Electronically Signed On 08-31-2023 19:09:44 CDT by Jase Gaytan D.O.
--- NOTE | 2023-08-31 13:40 | PM.IMHP ---
H&P: HPI History of Present Illness Date/Time: 08/31/23 14:00 Chief Complaint: Cat bite. Narrative: This is a very pleasant 77-year-old female with hypertension, hyperlipidemia, gastroesophageal reflux disease, depression, and anxiety who presented to the emergency department via private vehicle for evaluation of a cat bite. The patient provides the following history. She was bitten on her right forearm by her own house cat yesterday morning. She contacted her primary care provider and was started on oral antibiotics of which she has taken 3 doses. Unfortunately the site has continued to swell with increasing pain and redness and she was referred to the ER for probable IV antibiotics. The cat is up-to-date on vaccinations. She is afebrile and denies paresthesias, numbness, and difficulties moving her right hand. Pertinent labs in the ED include a WBC count of 9.0, ESR 71, lactic acid 1.1, glucose 116, CRP 1.0. Forearm x-ray showed no acute findings. She was given a dose of Unasyn she is being admitted in this setting for further antibiotics. Review of Systems Review of Systems: Twelve systems were reviewed and are negative except for as per HPI. [facility] Past Medical History Medical History Anxiety and depression Arteriosclerotic heart disease Chronic fatigue Chronic low back pain with bilateral sciatica Chronic pain of left heel Degenerative joint disease Gastroesophageal reflux disease Hearing loss Hyperlipidemia Hypertension Hypothyroidism Insomnia Microvascular angina Prediabetes Shingles Tobacco abuse Vitamin D deficiency Surgical History Surgical History (Updated 08/31/23 @ 21:00 by Diana Vincent PA-C) History of arthroplasty of left knee History of arthroplasty of right hip History of cholecystectomy Family History Family History Mother Family history of malignant neoplasm of breast in first degree relative Social History Social History Social History: Surrogate medical decision maker: Sveta Sánchez, daughter. Code status: Full code. Smoking packs per day: 1 Smoking cigarettes per day: 20.0 Smoking status: Current every day smoker Tobacco type: cigarettes Alcohol intake: never Substance use: never Do You Feel Safe in your Home?: Yes Lack of Transportation: No Lack of Food: Never True Current Housing: I Have Housing Concerned About Future Housing: No Difficulty Paying Gas/Electric Bills: No Difficulty Paying for Meds: No Currently Unemployed: No Education: Don't Know Difficulty w/ Childcare or Family Care: No Living arrangements: alone Meds Home Medications and Allergies Home Medications Medication Instructions Recorded Confirmed Type cholecalciferol (vitamin D3) 50 50 mcg PO DAILY 01/04/22 08/31/23 History mcg (2,000 unit) tablet rosuvastatin 40 mg tablet See Rx Instructions .Route 03/14/23 08/31/23 Rx .COMPLEX #90 ea diazepam 10 mg tablet 10 mg PO TID PRN anxiety #90 tabs 04/12/23 08/31/23 Rx sucralfate 1 gram tablet (Carafate) 1 g PO .COMPLEX PRN nausea #90 tabs 04/16/23 08/31/23 Rx ezetimibe 10 mg tablet (Zetia) 10 mg PO DAILY #90 tabs 06/04/23 08/31/23 Rx isosorbide mononitrate 60 mg See Rx Instructions .Route 06/13/23 08/31/23 Rx tablet,extended release 24 hr .COMPLEX #90 tabs amitriptyline 50 mg tablet See Rx Instructions .Route 06/18/23 08/31/23 Rx .COMPLEX #90 tabs levothyroxine 100 mcg tablet See Rx Instructions .Route 07/19/23 08/31/23 Rx .COMPLEX #90 tabs sertraline 100 mg tablet See Rx Instructions .Route 07/30/23 08/31/23 Rx .COMPLEX #90 tabs nitroglycerin 0.4 mg sublingual See Rx Instructions .Route 08/31/23 08/31/23 History tablet .COMPLEX PRN Chest Pain Allergies Allergy/AdvReac Type Severity Reaction Status Date / Time procaine [From
[2023-08-31 15:27] VITALS: BMI 26.9
--- NOTE | 2023-08-31 15:38 | ADMGEN ---
This patient, Radha Sánchez, was admitted to [facility] Surg Room 329-01. Patient/family oriented to hospital policies and general routines including ID bracelet, bed and alarms, visiting hours, pain management, procedures, bathroom and other care routines, personal items, smoking policy, room service/diet, and visiting hours. Information on how to activate the Rapid Response Team has been discussed. Patient/Family are encouraged to report perceived risks to care and to ask questions if they do not understand what they are told or what they should do. Report from Atiya in ER.
[2023-08-31 16:27] VITALS: BP 142/76; PULSE 86; RESP 16; TEMP 36.6; O2SAT 98
[2023-08-31 20:00] VITALS: O2SAT 96
[2023-08-31 21:57] VITALS: BP 114/52; PULSE 86; RESP 18; TEMP 36.6; O2SAT 96
[2023-09-01] MEDS: AMPICILLIN SULB 3 GM/NS 100 ML 3 GM/100 ML VIAL IVPB (05:28)
[2023-09-01 06:00] VITALS: BP 123/61; PULSE 83; RESP 20; TEMP 36.5; O2SAT 96
--- NOTE | 2023-09-01 09:39 | PM.IMPN ---
Subjective Date/time seen: 09/01/23 09:39 Interval history: HPI obtained from chart, This is a very pleasant 77-year-old female with hypertension, hyperlipidemia, gastroesophageal reflux disease, depression, and anxiety who presented to the emergency department via private vehicle for evaluation of a cat bite. The patient provides the following history. She was bitten on her right forearm by her own house cat yesterday morning. She contacted her primary care provider and was started on oral antibiotics of which she has taken 3 doses. Unfortunately the site has continued to swell with increasing pain and redness and she was referred to the ER for probable IV antibiotics. The cat is up-to-date on vaccinations. She is afebrile and denies paresthesias, numbness, and difficulties moving her right hand. Pertinent labs in the ED include a WBC count of 9.0, ESR 71, lactic acid 1.1, glucose 116, CRP 1.0. Forearm x-ray showed no acute findings. She was given a dose of Unasyn she is being admitted in this setting for further antibiotics. Interval history: 08/31: Objective Data Vital Signs Vital Signs: Vital Signs - 24 hr 08/31/23 11:02 08/31/23 16:27 08/31/23 21:57 Temperature 97.4 F L 97.8 F 97.9 F Pulse Rate 104 H 86 86 Respiratory Rate 16 16 18 Blood Pressure 142/68 H 142/76 H 114/52 L Pulse Oximetry 97 98 96 Oxygen Delivery Room Air 08/31/23 20:00 09/01/23 06:00 Temperature 97.7 F Pulse Rate 83 Respiratory Rate 20 Blood Pressure 123/61 Pulse Oximetry 96 96 Oxygen Delivery Room Air Intake/Output Intake/Output: Intake & Output 08/29/23 08/30/23 08/31/23 09/01/23 23:59 23:59 23:59 23:59 Intake Total 540 300 Output Total 0 Balance 540 300 Meds/Results Medications: Active Medications Generic Name Dose Route Start Last Admin Trade Name Freq PRN Reason Stop Dose Admin Acetaminophen 650 mg 08/31/23 13:36 Acetaminophen 325 Mg Tablet PO Q4H PRN Mild Pain (1-3) or Fever Ampicillin Sodium/Sulbactam Sodium 3 gm in 100 mls @ 200 mls/hr 08/31/23 18:00 09/01/23 05:58 Unasyn 3 Gm/Ns 100 Ml IVPB Infused Q6HR RED Infusion Ondansetron HCl 4 mg 08/31/23 13:36 Ondansetron Inj 4 Mg/2 Ml Vial IV PUSH Q4H PRN Nausea Radiology Results: ITS Impressions Forearm X-Ray 08/31/23 13:56 IMPRESSION: 1: NO ACUTE BONE OR JOINT ABNORMALITY IDENTIFIED. Labs Labs: Laboratory Results - last 24 hr 08/31/23 11:50 WBC 9.0 RBC 4.52 Hgb 14.2 Hct 43.5 MCV 96.2 MCH 31.4 MCHC 32.6 RDW 15.2 H Plt Count 300 MPV 9.4 Immature Gran % (Auto) 0.3 Neut % (Auto) 78.1 H Lymph % (Auto) 13.[address] [place] % (Auto) 6.9 Eos % (Auto) 0.3 Baso % (Auto) 0.7 Lymph # (Auto) 1.23 [place] # (Auto) 0.6 Eos # (Auto) 0.0 Baso # (Auto) 0.1 Abs Immat Gran (auto) 0.03 Absolute Neuts (auto) 7.0 H Absolute Nucleated RBC 0.000 Nucleated RBC % 0.0 ESR 71 H Sodium 138 Potassium 4.0 Chloride 108 H Carbon Dioxide 27 Anion Gap 3 L BUN 15 Creatinine 0.60 L Estim Creat Clear Calc 52 Estimated GFR > 60 Glucose 116 H Lactic Acid 1.1 Calcium 9.2 Total Bilirubin 0.5 AST 43 H ALT 35 Alkaline Phosphatase 65 C-Reactive Protein 1.0 Total Protein 7.0 Albumin 3.6
--- NOTE | 2023-09-01 10:41 | PM.DS ---
DS: Admitting Diagnosis Discharge Date 3 Admitting Diagnosis Cat bite DS: Discharge Diagnosis Discharge Diagnosis (1) Cellulitis of right forearm: Code(s): L03.113 - Cellulitis of right upper limb Status: Acute (2) Cat bite of right forearm: Qualifiers: Encounter type: initial encounter Qualified Code(s): S51.851A - Open bite of right forearm, initial encounter; W55.01XA - Bitten by cat, initial encounter Code(s): S51.851A - Open bite of right forearm, initial encounter; W55.01XA - Bitten by cat, initial encounter Status: Acute (3) Hypertension: Code(s): I10 - Essential (primary) hypertension Status: Acute (4) Hyperlipidemia: Qualifiers: Hyperlipidemia type: mixed hyperlipidemia Qualified Code(s): E78.2 - Mixed hyperlipidemia Code(s): E78.5 - Hyperlipidemia, unspecified Status: Acute (5) Hypothyroidism: Code(s): E03.9 - Hypothyroidism, unspecified Status: Acute (6) Gastroesophageal reflux disease: Code(s): K21.9 - Gastro-esophageal reflux disease without esophagitis Status: Acute (7) Anxiety and depression: Code(s): F41.9 - Anxiety disorder, unspecified; F32.9 - Major depressive disorder, single episode, unspecified Status: Acute Plan The patient presented to the emergency department for evaluation of a cat bite to the right forearm as detailed in HPI. Labs, imaging, EKG, and all reports were personally reviewed. Despite taking 3 doses of oral antibiotics her arm has continued to swell and she is being admitted for IV antibiotics. Continue Unasyn. Analgesics available as needed. Patient was encouraged to elevate the affected extremity frequently if possible. Vital signs were reviewed and they are stable. She believes her chronic medical conditions are well controlled on her home medications which will be reviewed and resumed as appropriate. Findings and treatment plan were discussed with the patient. Questions were solicited and answered to satisfaction. The patient's medical management will be taken over by the hospitalist team in a.m. DS: Summary Hospital Course Reason for hospitalization: Cellulitis Hospital Course: This is a very pleasant 77-year-old female with hypertension, hyperlipidemia, gastroesophageal reflux disease, depression, and anxiety who presented to the emergency department via private vehicle for evaluation of a cat bite. The patient provides the following history. She was bitten on her right forearm by her own house cat yesterday morning. She contacted her primary care provider and was started on oral antibiotics of which she has taken 3 doses. Unfortunately the site has continued to swell with increasing pain and redness and she was referred to the ER for probable IV antibiotics. The cat is up-to-date on vaccinations. She is afebrile and denies paresthesias, numbness, and difficulties moving her right hand. Pertinent labs in the ED include a WBC count of 9.0, ESR 71, lactic acid 1.1, glucose 116, CRP 1.0. Forearm x-ray showed no acute findings. She was given a dose of Unasyn she is being admitted in this setting for further antibiotics. Interval history 08/31: Mrs. Sánchez is seen sitting up in her bed today doing well. She is anxious to go home. The redness and swelling to her right wrist and right upper arm have decrease per her reports. There is still some warmth and redness present but no pain. She has received 3 doses of IV antibiotics. Her blood cultures have no growth to date. She is remaining afebrile and her vitals are stable. I feel it is safe to discharge her home with a 7 day course of Augmentin. Time Spent with Patient Time attestation: Total time spent providing and/or coordinating discharge services: Exam Narrative: General: well appearing, well developed, well nourished, appears stated age. HEENT: normocephalic, atraumatic. Mucous membranes moist. EOMI, PERRLA, bilateral s
== END 2023-09-01 11:05 | disposition home or self-care (01) ==
LOC: ANHED 13:29 → ANH3MEDSUR 09-01 10:48
PROVIDERS: Admitting Provider Internal Medicine; Emergency Provider Physician Assistant; PCP Internal Medicine; Visit Provider General Practice
DX: L03.113 Cellulitis of right upper limb (principal); S51.851A Open bite of right forearm, initial encounter; W55.01XA Bitten by cat, initial encounter; Z23 Encounter for immunization; I10 Essential (primary) hypertension; E78.2 Mixed hyperlipidemia; E03.9 Hypothyroidism, unspecified; K21.9 Gastro-esophageal reflux disease without esophagitis; I25.10 Atherosclerotic heart disease of native coronary artery without angina pectoris; F41.9 Anxiety disorder, unspecified; F32.9 Major depressive disorder, single episode, unspecified; E55.9 Vitamin D deficiency, unspecified; F17.210 Nicotine dependence, cigarettes, uncomplicated; Z96.652 Presence of left artificial knee joint; Z96.641 Presence of right artificial hip joint; Z79.899 Other long term (current) drug therapy
CPT/HCPCS: 36415; 73090; 80053; 83605; 85025; 85652; 86140; 87040; 90471; 90715; 93005; 96365; 96375; 99285; G0378; J0295; J2270; J2405

== ENCOUNTER 2024-01-22 09:22 | Outpatient (CLI) | payer MEDICARE, SELFPAY ==
--- NOTE | ~2024-01-22 | CT_ITS ---
EXAMINATION: CT diagnostic chest wo con DATE: 01/22/2024 09:43 INDICATION: Z72.0 - Tobacco use TECHNIQUE: Computed tomography (CT) of the chest was performed without intravenous contrast. Addition al 3D reconstructions utilizing coronal maximum intensity projection (MIP) were performed. Automated exposure control and iterative reconstruction technique were employed. The dose-length product was 49 .88 mGy-cm. COMPARISON: 07/25/2023 FINDINGS: Mild emphysema. No significant interval change in mild atelectasis/scarring at the bilateral lower ethan ngs. No suspicious pulmonary nodules, pneumonia, pulmonary edema or other new pulmonary infiltrates. No pleural effusion. Heart size is normal. Atherosclerotic coronary artery calcifications. Thoracic a adriana is normal in caliber. No pathologically enlarged thoracic lymphadenopathy. Mild thoracic spondyl osis. IMPRESSION: 1. Mild emphysema with stable appearance of mild atelectasis/scarring at the bilateral lower lungs. Reviewed, dictated and finalized at location A. IMPRESSION: 1. Mild emphysema with stable appearance of mild atelectasis/scarring at the bi lateral lower lungs.
== END 2024-01-22 09:23 ==
LOC: MICIMG 09:26
PROVIDERS: PCP Internal Medicine; Visit Provider Internal Medicine
DX: Z72.0 Tobacco use (principal); J43.9 Emphysema, unspecified
CPT/HCPCS: 71250

== ENCOUNTER 2024-04-28 00:23 | Day surgery (SDC) | payer MEDICARE, SELFPAY ==
[2024-04-16 14:26] VITALS: BMI 26.6
--- NOTE | 2024-04-24 12:19 | PC.NURSE ---
during pts preop call, she told nurse she was on a blood thinner but did not know name, why taking, or who doctor was that ordered it. no blood thinners listed in her meds or in office notes. called dr welch office and they stated pt is not on blood thinner. during preop call pt also told nurse she takes large amounts of miralax everyday for chronic constipation and said a one day prep would not work. 2 day prep instructions obtained from dr velásquez, called pt to go over these instructions but pt did not answer.left a voicemail. will attempt to call pt back and her secondary contact.
[2024-04-28 09:36] VITALS: BP 132/71; PULSE 46; RESP 18; TEMP 37.1; O2SAT 99
[2024-04-28] MEDS: LACTATED RINGERS 1,000 ML 150 ML IV CONT (09:47)
--- NOTE | 2024-04-28 10:16 | WPDANESEPPF ---
Anes - Initial Pre Proc Eval Procedure: Operation Date: 04/28/24 10:30 Proposed Procedures p Colonoscopy - Edi Carty MD Date/Time: 04/28/24 10:16 Surgeon: Edi Carty MD Pre Op Diagnosis: fecal abnormalities Patient Data Age: 78 Gender: F Height: 1.57 m Weight: 65.4 kg Last Vital Signs Temp 98.7 F 04/28/24 09:36 Pulse 46 L 04/28/24 09:36 Resp 18 04/28/24 09:36 BP 132/71 04/28/24 09:36 Pulse Ox 99 04/28/24 09:36 O2 Del Method Room Air 04/28/24 09:36 Allergies Allergy/AdvReac Type Severity Reaction Status Date / Time procaine [From Novocain] Allergy Unknown shock Verified 04/28/24 09:35 Home Medications Medication Instructions Recorded Confirmed Type sucralfate 1 gram tablet (Carafate) 1 g PO .COMPLEX PRN nausea #90 tabs 04/16/23 04/28/24 Rx nitroglycerin 0.4 mg sublingual 0.4 mg sublingual Q5M PRN Chest 10/03/23 04/28/24 Rx tablet Pain #25 tabs ezetimibe 10 mg tablet (Zetia) 10 mg PO DAILY #90 tabs 11/27/23 04/28/24 Rx nystatin-triamcinolone 100,000 1 applic topical BID #60 grams 11/27/23 04/28/24 Rx unit/g-0.1 % topical cream amitriptyline 50 mg tablet See Rx Instructions .Route 12/13/23 04/28/24 Rx .COMPLEX #90 tabs isosorbide mononitrate 60 mg See Rx Instructions .Route 12/13/23 04/28/24 Rx tablet,extended release 24 hr .COMPLEX #90 tabs diazepam 10 mg tablet 10 mg PO TID PRN anxiety #90 tabs 01/20/24 04/28/24 Rx rosuvastatin 40 mg tablet See Rx Instructions .Route 03/27/24 04/28/24 Rx .COMPLEX #90 ea duloxetine 30 mg capsule,delayed 30 mg PO DAILY #30 caps 04/01/24 04/28/24 Rx release (Cymbalta) duloxetine 60 mg capsule,delayed 60 mg PO DAILY #30 caps 04/01/24 04/28/24 Rx release (Cymbalta) levothyroxine 112 mcg tablet See Rx Instructions .Route 04/07/24 04/28/24 Rx .COMPLEX #30 tabs Patient hx anesthesia problems: none Family hx anesthesia problems: none Results Review: All pre-operative results and documents have been reviewed as part of the pre-operative evaluation. [facility] Past Medical History Medical History Anxiety and depression Arteriosclerotic heart disease Arthritis Chest wall pain Chronic fatigue Chronic low back pain with bilateral sciatica Chronic pain of left heel Cognitive changes Degenerative joint disease Depression Gastroesophageal reflux disease Hearing loss Hyperlipidemia Hypothyroidism Insomnia Microvascular angina Prediabetes Shingles Tobacco abuse Vitamin D deficiency Surgical History Surgical History History of arthroplasty of left knee History of arthroplasty of right hip History of cholecystectomy Family History Family History Mother Family history of malignant neoplasm of breast in first degree relative Social History Social History Social History: Surrogate medical decision maker: Sveta Sánchez, daughter. Code status: Full code. Smoking packs per day: 1 Smoking cigarettes per day: 20.0 Years smoked: 30 Smoking pack-years: 30.00 Smoking status: Current every day smoker Tobacco type: cigarettes Alcohol intake: never Substance use: never Substance use type: does not use Do You Feel Safe in your Home?: Yes Lack of Transportation: No Lack of Food: Never True Current Housing: I Have Housing Concerned About Future Housing: No Difficulty Paying Gas/Electric Bills: No Difficulty Paying for Meds: No Currently Unemployed: No Education: Don't Know Difficulty w/ Childcare or Family Care: No Living arrangements: alone Spiritual care concerns: No Anes - Eval Final PreProcedure Day of Procedure 04/28/24 10:16 Patient weight: normal Heart: regular rate and rhythm Lungs: clear to auscultation Airway: Mallampati scale class II Neurological: alert and oriented Last oral intake: >/= 8 hours ASA classification: III Emergent: no Anesthetic plan: proceed Anesthesia type and monitoring: general GIVS and standard monitoring Results Review: All pre-operative results and documents have been reviewed as part of the pre-operative evaluation. Informed Consent: The patient's anesthetic plan and its attendant risks and benefits were discussed with the patient/family/POA. Questions were solicited and answers provided to the satisfaction of the patient/family/POA.
--- NOTE | 2024-04-28 10:54 | PM.IMHP ---
H&P: HPI History of Present Illness Date/Time: 04/28/24 10:54 Chief Complaint: Screening colonoscopy Narrative: This is the patient's second colonoscopy after more than 12 years. She has previously been screened with Cologuard, and was positive. There are no GI symptoms and there is no family history of colorectal cancer. Review of Systems Review of Systems: All systems reviewed & are unremarkable except as noted in HPI and below PMFSH Past Medical History Medical History Anxiety and depression Arteriosclerotic heart disease Arthritis Chest wall pain Chronic fatigue Chronic low back pain with bilateral sciatica Chronic pain of left heel Cognitive changes Degenerative joint disease Depression Gastroesophageal reflux disease Hearing loss Hyperlipidemia Hypothyroidism Insomnia Microvascular angina Prediabetes Shingles Tobacco abuse Vitamin D deficiency Surgical History Surgical History History of arthroplasty of left knee History of arthroplasty of right hip History of cholecystectomy Family History Family History Mother Family history of malignant neoplasm of breast in first degree relative Social History Social History Social History: Surrogate medical decision maker: Sveta Sánchez, daughter. Code status: Full code. Smoking packs per day: 1 Smoking cigarettes per day: 20.0 Years smoked: 30 Smoking pack-years: 30.00 Smoking status: Current every day smoker Tobacco type: cigarettes Alcohol intake: never Substance use: never Substance use type: does not use Do You Feel Safe in your Home?: Yes Lack of Transportation: No Lack of Food: Never True Current Housing: I Have Housing Concerned About Future Housing: No Difficulty Paying Gas/Electric Bills: No Difficulty Paying for Meds: No Currently Unemployed: No Education: Don't Know Difficulty w/ Childcare or Family Care: No Living arrangements: alone Spiritual care concerns: No Meds Home Medications and Allergies Home Medications Medication Instructions Recorded Confirmed Type sucralfate 1 gram tablet (Carafate) 1 g PO .COMPLEX PRN nausea #90 tabs 04/16/23 04/28/24 Rx nitroglycerin 0.4 mg sublingual 0.4 mg sublingual Q5M PRN Chest 10/03/23 04/28/24 Rx tablet Pain #25 tabs ezetimibe 10 mg tablet (Zetia) 10 mg PO DAILY #90 tabs 11/27/23 04/28/24 Rx nystatin-triamcinolone 100,000 1 applic topical BID #60 grams 11/27/23 04/28/24 Rx unit/g-0.1 % topical cream amitriptyline 50 mg tablet See Rx Instructions .Route 12/13/23 04/28/24 Rx .COMPLEX #90 tabs isosorbide mononitrate 60 mg See Rx Instructions .Route 12/13/23 04/28/24 Rx tablet,extended release 24 hr .COMPLEX #90 tabs diazepam 10 mg tablet 10 mg PO TID PRN anxiety #90 tabs 01/20/24 04/28/24 Rx rosuvastatin 40 mg tablet See Rx Instructions .Route 03/27/24 04/28/24 Rx .COMPLEX #90 ea duloxetine 30 mg capsule,delayed 30 mg PO DAILY #30 caps 04/01/24 04/28/24 Rx release (Cymbalta) duloxetine 60 mg capsule,delayed 60 mg PO DAILY #30 caps 04/01/24 04/28/24 Rx release (Cymbalta) levothyroxine 112 mcg tablet See Rx Instructions .Route 04/07/24 04/28/24 Rx .COMPLEX #30 tabs Allergies Allergy/AdvReac Type Severity Reaction Status Date / Time procaine [From Novocain] Allergy Unknown shock Verified 04/28/24 09:35 Vital Signs Vital Signs - 24 hr 04/28/24 09:36 Temperature 98.7 F Pulse Rate 46 L Respiratory Rate 18 Blood Pressure 132/71 Pulse Oximetry 99 Oxygen Delivery Room Air Exam Const: General: cooperative and healthy appearing Resp: Effort & Inspection: normal respiratory effort and able to speak in complete sentences Auscultation: clear to auscultation bilaterally Cardio: Rate: regular rate Rhythm: regular rhythm GI: Inspection: normal to inspection GI Palp: No No hepatosplenomegaly present Auscultation: normal bowel sounds Rectal Exam: deferred Skin: General skin exam: normal color Psych: Appearance: grossly normal Mental Status: mental status grossly normal Assessment and Plan Assessment and plan (1) Positive colorectal cancer screening using Cologuard test: Code(s): R19.5 - Other fecal abnormalities Status: Acute Assessment and Plan: The patient is deemed a good candidate for the procedure. Consent signed. Will proceed.
[2024-04-28 11:24] VITALS: BP 122/55; PULSE 68; RESP 20; O2SAT 99
[2024-04-28 11:34] VITALS: BP 124/81; PULSE 76; RESP 20; O2SAT 99
[2024-04-28 11:44] VITALS: BP 149/92; PULSE 70; RESP 20; O2SAT 100
== END 2024-04-28 11:57 | disposition home or self-care (01) ==
PROVIDERS: PCP Internal Medicine; Referring Provider Nurse Practitioner Family; Visit Provider Internal Medicine Gastroenterology
PROC: 0DJD8ZZ Inspection of Lower Intestinal Tract, Via Natural or Artificial Opening Endoscopic (ICD-10-PCS; CPT 45378; principal; 2024-04-28 10:30)
DX: K63.5 Polyp of colon (principal); K57.30 Diverticulosis of large intestine without perforation or abscess without bleeding; E78.5 Hyperlipidemia, unspecified; E03.9 Hypothyroidism, unspecified; R73.03 Prediabetes; E55.9 Vitamin D deficiency, unspecified; G47.00 Insomnia, unspecified; F41.8 Other specified anxiety disorders; K21.9 Gastro-esophageal reflux disease without esophagitis; I25.10 Atherosclerotic heart disease of native coronary artery without angina pectoris; M19.90 Unspecified osteoarthritis, unspecified site; R53.82 Chronic fatigue, unspecified; G89.29 Other chronic pain; M54.42 Lumbago with sciatica, left side; M54.41 Lumbago with sciatica, right side; M79.672 Pain in left foot; F17.210 Nicotine dependence, cigarettes, uncomplicated; Z98.890 Other specified postprocedural states; Z90.49 Acquired absence of other specified parts of digestive tract; Z96.652 Presence of left artificial knee joint; Z96.641 Presence of right artificial hip joint; Z80.3 Family history of malignant neoplasm of breast
CPT/HCPCS: 45385; 88305; J2003; J2704; J7120

== ENCOUNTER 2024-08-12 12:39 | Outpatient (CLI) | payer MEDICARE, SELFPAY ==
--- NOTE | ~2024-08-12 | MR_ITS ---
EXAMINATION: MR lumbar spine wo con DATE: 08/12/2024 13:53 INDICATION: Low back pain. TECHNIQUE: Magnetic resonance imaging (MRI) of the lumbar spine was performed without intravenous con trast. Sequences included sagittal T2-weighted FSE, sagittal T2-weighted FS FSE, sagittal T1-weighted FSE, and axial T2-weighted FSE. COMPARISON: Lumbar spine radiographs 07/30/2024 FINDINGS: There is 4 degrees dextrocurvature of lumbar spine. There is a burst fracture of L2 with 2/ 5 loss of height, retropulsion of bone 4 mm into central spinal canal, and edema-like marrow signal i ntensity. There are chronic burst fractures of L4 and L5 with 2/5 and 1/5 loss of height, respectivel y. There is mildly decreased disc height at L2-L3, moderately decreased disc height at L3-L4, and sev erely decreased disc height at L4-L5 and L5-S1. The distal spinal cord signal intensity is normal. Th e conus medullaris is at L1. There are cysts in the kidneys measuring up to 8 cm on the left. The fol lowing disc levels are specifically discussed: L1-L2: The disc does not extend beyond the endplate margin. There is severe bilateral facet joint ost eoarthritis. There is mild left neural foraminal stenosis. There is mild central canal stenosis. L2-L3: The disc is bulging. There is severe bilateral facet joint osteoarthritis. There is mild bilat eral neural foraminal stenosis. There is mild central canal stenosis. L3-L4: The disc is bulging. There is severe bilateral facet joint osteoarthritis. There is mild bilat eral neural foraminal stenosis. There is mild central canal stenosis. L4-L5: The disc is bulging and has an annular fissure. There is severe bilateral facet joint osteoart hritis. There is moderate bilateral neural foraminal stenosis. There is mild central canal stenosis. L5-S1: The disc is bulging. There is severe bilateral facet joint osteoarthritis. There is mild bilat eral neural foraminal stenosis. There is mild central canal stenosis. IMPRESSION: 1. Subacute burst fracture of L2. 2. Severe lumbar spondylosis. Reviewed, dictated and finalized at location A. [facility]
== END 2024-08-12 12:40 | disposition home or self-care (01) ==
LOC: MICIMG 12:40
PROVIDERS: PCP Internal Medicine; Visit Provider Orthopaedic Surgery
DX: M53.3 Sacrococcygeal disorders, not elsewhere classified (principal); M43.06 Spondylolysis, lumbar region; S32.021A Stable burst fracture of second lumbar vertebra, initial encounter for closed fracture; X58.XXXA Exposure to other specified factors, initial encounter
CPT/HCPCS: 72148

== ENCOUNTER 2024-09-06 08:53 | Emergency (ER) | payer MEDICARE, SELFPAY ==
[2024-09-06 08:54] VITALS: BP 141/98; PULSE 88; RESP 16; TEMP 36.6; O2SAT 97
--- OUTSIDE RECORDS SUMMARY | 2024-09-06 10:19 | XMS_ITS | Referral Summary ---
Author Organization [facility] [address] Address [address] [place] [address] Care Team Providers Care Public Relations Name Role Phone Gume Bermudez MD Primary Care Provider [phone] Allergies Active Allergy Reactions Criticality Noted Date Comments Procaine Anaphylaxis High 08/13/2017 Medications LIPITOR 80 mg tablet Take 80 mg by mouth daily. 1 06/05/2017 Active amitriptyline (ELAVIL) 25 mg tablet Take 1 tablet by mouth daily. 5 07/29/2017 Active diazePAM (VALIUM) 10 mg tablet Take 10 mg by mouth nightly as needed for anxiety. Active metoprolol XL (TOPROL-XL) 25 mg 24 hr tabletIndicatio ns:Supraventric ular premature beats Take 1 tablet (25 mg total) by mouth daily. 30 tablet 3 09/26/2017 Active Active Problems Problem Noted Date Diagnosed Date Supraventricular premature beats 09/26/2017 Other chest pain 08/13/2017 Social History Tobacco Use Types Packs/Day Years Used Date Smoking Tobacco: Every Day Cigarettes Smokeless Tobacco: Never Alcohol Use Standard Drinks/Week Comments No 0 (1 standard drink = 0.6 oz pur e alcohol) Personal Safety Answer Date Recorded Getting School Help Needed Not on file 08/22 Comments Unknown Sex and Gender Information Value Date Recorded Sex Assigned at Not on file Legal Sex Female 12:57 AM [employer]MAN Gender Identity Not on file Sexual Orientation Not on file Last Filed Vital Signs Vital Sign Reading Time Taken Comments Blood Pressure 132/80 09/26/2017 9:48 AM CDT Pulse 71 09/26/2017 9:48 AM CDT Temperature - - Respiratory Rate 18 09/26/2017 9:48 AM CDT Oxygen Saturation 93% 08/13/2017 12:10 PM FLAGMAN Inhaled Oxygen Concentration - - Weight 61.7 kg (136 lb) 09/26/2017 9:48 AM CDT Height 157.5 cm (5' 2 ) 09/26/2017 9:48 AM CDT Body Mass Index 24.87 09/26/2017 9:48 AM CDT Plan of Treatment Not on file Insurance [employer] [place] [address] MEDICARE Care Teams Public Relations Relationship Specialty Start Date End Date Gume Bermudez MD [address] [place] [address] PCP - General Internal Medicine 08/13/17
--- OUTSIDE RECORDS SUMMARY | 2024-09-06 10:19 | XMS_ITS | Clinical Summary ---
Author Organization [facility] [address] Address [address] [place] [address] Care Team Providers Care Eating Disorder Specialist Name Role Phone Gume Bermudez MD Primary Care Provider [phone] Allergies Active Allergy Reactions Criticality Noted Date [...] premature beats 09/26/2017 Other chest pain 08/13/2017 Surgical History Surgery Date Site/Laterality Comments HIP SURGERY SHOULDER SURGERY Medical History Medical History Date Comments Hyperlipidemia Cataract Anxiety Depression Arthritis Family History Relation Name Status Comments Brother Alive Father Alive Mother (Age 53) Social History Tobacco Use Types Packs/Day Years [...] on file Legal Sex Female 12:57 AM [employer] Gender Identity Not on file Sexual Orientation Not on file Obstetrics History Last Filed Vital Signs Vital Sign Reading Time Taken Comments Blood Pressure 132/80 09/26/2017 9:48 AM CDT Pulse 71 09/26/2017 9:48 AM CDT Temperature - - Respiratory Rate 18 09/26/2017 9:48 AM CDT Oxygen Saturation 93% 08/13/2017 12:10 PM [employer] Inhaled Oxygen Concentration - - Weight 61.7 kg (136 lb) 09/26/2017 9:48 AM CDT Height 157.5 cm (5' 2 ) 09/26/2017 9:48 AM CDT Body Mass Index 24.87 09/26/2017 9:48 AM CDT Plan of Treatment Not on [place] [id number] [facility] [place] [id number] Care Teams Eating Disorder Specialist Relationship Specialty Start Date End Date Gume Bermudez MD [address] [facility] [address] [place], [place] [id number] PCP - General Internal Medicine 08/13/17
--- OUTSIDE RECORDS SUMMARY | 2024-09-06 10:19 | XMS_ITS | Clinical Summary ---
Author Organization [facility] Address [address] [place] [id number] Phone Care Team Providers Care Quality Worker Name Role Phone Gume Bermudez MD Primary Care Provider [phone] Social History Tobacco Use Types Packs/Day Years Used Date Smoking Tobacco: Never Assessed Sex and Gender Information Value Date Recorded Sex Assigned at Not on file Gender Identity Not on file Sexual Orientation Not on file Plan of Treatment Health Maintenance Due Date Last Done Comments Pneumococcal PPSV23/PCV13 65 + Years / Low and Medium Risk (1 of 4 - PCV) 2009 Influenza Vaccine (#1) 2024 Care Teams Quality Worker Relationship Specialty Start Date End Date Gume Bermudez MD [address] [facility] [address] [facility] [address] [place] [address] PCP - General Internal Medicine 01/15/22
--- NOTE | 2024-09-06 10:46 | ED_ITS ---
HPI - Back Pain/Injury General Chief Complaint: Back Pain/Injury Stated Complaint: back pain Time Seen by Provider: 09/06/24 10:02 History of Present Illness HPI Narrative: 78-year-old female with a history of chronic back pain, lumbar compression fractures. She presents to the emergency department with acute on chronic back pain. She states that her orthopedics office was closed so she came to the ER. She ran out of her home [place] medication. She states she has tried conservative therapies including Tylenol, Advil, Aleve, lidocaine patches, Biofreeze, diclofenac. she is requesting alternatives. Patient is accompanied by her family members. Patient has no new complaints aside from pain. She denies any neurological complaints. no urinary troubles, no weakness or sensory changes in her extremities, no saddle anesthesia. No new injury. Last visit to orthopedics office was 5 days ago[address] Has seen Dr. Denny serially over last month. Requesting referral to pain management. Related Data Home Medications ?Medication ?Instructions ?Recorded ?Confirmed ?Last Taken ?Type Dr Astorga's Heel cream topical 06/11/24 09/01/24 Unknown History Allergies Allergy/AdvReac Type Severity Reaction Status Date / Time procaine (From Novocain) Allergy Unknown shock Verified 09/01/24 08:32 Review of Systems Review of Systems: As reviewed above in [facility]PI [facility] Past Medical History Medical History Depression Arthritis Gastroesophageal reflux disease Degenerative joint disease Arteriosclerotic heart disease Chronic pain of left heel Cognitive changes Chronic fatigue Prediabetes Vitamin D deficiency Shingles Chest wall pain Tobacco abuse Anxiety and depression Hyperlipidemia Hearing loss Microvascular angina Chronic low back pain with bilateral sciatica Insomnia Surgical History Surgical History History of arthroplasty of left knee History of arthroplasty of right hip History of cholecystectomy Family History Family History Mother Family history of malignant neoplasm of breast in first degree relative Social History Social History Social History: Surrogate medical decision maker: Sveta Sánchez, daughter. Code status: Full code. Smoking packs per day: 1 Smoking cigarettes per day: 20.0 Years smoked: 30 Smoking pack-years: 30.00 Smoking status: Current every day smoker Tobacco type: cigarettes Alcohol intake: never Substance use: never Substance use type: does not use Current Housing: Decline to Answer Concerned About Future Housing: Decline to Answer Difficulty Paying Gas/Electric Bills: Decline to Answer Difficulty Paying for Meds: Decline to Answer Currently Unemployed: Decline to Answer Education: Decline to Answer Difficulty w/ Childcare or Family Care: Decline to Answer Living arrangements: alone Spiritual care concerns: No Exam Narrative: GENERAL: [Well-appearing, well-nourished, and in no acute distress.] HEAD: [Normocephalic, atraumatic.] EYES: [PERRLA and EOMI.] ENT: Nares clear, no rhinorrhea or epistaxis. Mucous membranes moist. NECK: Supple. CHEST: [Clear to auscultation. No respiratory distress.] HEART: [Regular rate and rhythm]. No murmur heard. [Normal peripheral pulses.] ABDOMEN: [Soft, nondistended], [nontender], [No rigidity or guarding] EXTREMITIES: Normal range of motion. [No edema.] midline tenderness in her previous area of compression fracture but no overlying skin changes or step- offs. SKIN: Warm, dry, no rash. NEURO: [No focal deficits]. Alert and oriented [x3.] full strength and sensation throughout both legs, EHL FHL 5/5, flexion and extension at the hips and knees/ ankles are intact full bilaterally. ambulatory. PSYCH: [Normal mood and affect.] Course Vital Signs Vital signs: Vital Signs Temperature 36.6 C 09/06/24 08:54 Pulse Rate 88 09/06/24 08:54 Respiratory Rate 16 09/06/24 08:54 Blood Pressure 141/98 H 09/06/24 08:54 Pulse Oximetry 97 09/06/24 08:54 Oxygen Delivery Room Air 09/06/24 08:54 Temperature 36.6 C 09/06/24 08:54 Pulse Rate 88 09/06/24 08:54 Respiratory Rate 16 09/06/24 08:54 Blood Pressure 141/98 H 09/06/24 08:54 Pulse Oximetry 97 09/06/24 08:54 Oxygen Delivery Room Air 09/06/24 08:54 MDM - Back Pain/Injury MDM Narrative Medical decision making narrative: 78-year-old female with history of chronic lumbago, lumbar back pain from degenerative disc disease, lumbar fractures. No new injuries. She is neurologically intact, no red flag signs or symptoms of any cord compression or any signs of cauda equina/conus medullaris. She is otherwise very well-a ppearing, pleasant. She has normal vital signs. No fever, tachycardia. Pain is relatively mild on my examination with palpation, she has full range of motion of the extremities. She is requesting additional pain control medications and alternatives to conservative therapy that she is currently failed according to herself. Sees Orthopedics for this most recently 5 days ago. Given her unremarkable examination, no neurological concerns I believe she can be safely discharged home with pain management referral. She was given intramuscular dilaudid here and a refill of her [place] until she can make appointments with her orthopedist and pain management. patient and family were comfortable with this plan. Medical Records Attestation: I reviewed the patient's medical records. Discharge Plan Discharge Clinical Impression: Chronic back pain, Compression fracture of L2 lumbar vertebra Patient Disposition: Home, Self-Care Condition: Stable Instructions: Antibiotic Form, Back Pain (ED), Lower Back Exercises (ED) Additional Instructions: we will refill your Denn[place] medication for the next several days, we have provided you pain management referral. Call your orthopedic doctor and the office of Dr. Mast at your earliest convenience. Return to the ER if you have increased pain in your back, you develop lower extremity weakness/numbness/paralysis, you have numbness or tingling in your private parts, or you are unable to control your ability to urinate/stool. Patient Language: Burmese Prescriptions: New hydrocodone-acetaminophen 5-325 mg tablet 1 tablet PO Q8H PRN (Reason: pain) Qty: 14 0RF No Action hydrocodone-acetaminophen 5-325 mg tablet 1 tablet PO Q4H PRN (Reason: pain) Qty: [address] Astorga's Heel cream topical duloxetine [Cymbalta] 60 mg capsule,delayed release(/EC) 60 mg PO DAILY Qty: 90 1RF nystatin-triamcinolone 100,000-0.1 unit/g-% cream 1 applic topical BID Qty: 60 1RF sucralfate [Carafate] 1 gram tablet 1 g PO .COMPLEX PRN (Reason: nausea) Qty: 30 0RF Rx Instructions: 1 g PO dissolve 1 tab in a glass 4 times a day; PRN; urea 40 % cream 1 applic topical BID Qty: 28.35 0RF tirzepatide 2.5 mg/0.5 mL pen injector 2.5 mg subcut WEEKLY Qty: 2 1RF Rx Instructions: for 4 weeks levothyroxine 112 mcg tablet See Rx Instructions .ROUTE .COMPLEX Qty: 90 1RF Dose Instruction: Take 1 tablet by mouth once daily Rx Instructions: Take 1 tablet by mouth once daily diazepam 10 mg tablet 10 mg PO TID PRN (Reason: anxiety) Qty: 90 0RF ezetimibe 10 mg tablet See Rx Instructions .ROUTE .COMPLEX Qty: 90 0RF Dose Instruction: Take 1 tablet by mouth once daily Rx Instructions: Take 1 tablet by mouth once daily isosorbide mononitrate 60 mg tablet extended release 24 hr See Rx Instructions .ROUTE .COMPLEX Qty: 90 0RF Dose Instruction: Take 1 tablet by mouth once daily Rx Instructions: Take 1 tablet by mouth once daily rosuvastatin 40 mg tablet See Rx Instructions .ROUTE .COMPLEX Qty: 90 0RF Dose Instruction: Take 1 tablet by mouth once daily Rx Instructions: Take 1 tablet by mouth once daily amitriptyline 50 mg tablet See Rx Instructions .ROUTE .COMPLEX Qty: 90 0RF Dose Instruction: TAKE 1 TABLET BY MOUTH EVERY DAY AT BEDTIME Rx Instructions: TAKE 1 TABLET BY MOUTH EVERY DAY AT BEDTIME triamcinolone acetonide 0.5 % cream 1 applic topical BID Qty: 60 2RF ciprofloxacin HCl 250 mg tablet 250 mg PO Q12H Qty: 14 0RF nitroglycerin 0.4 mg tablet, sublingual 0.4 mg sublingual Q5M PRN (Reason: Chest Pain) Qty: 25 1RF Follow-up/Referrals: Gume Bermudez MD [Primary Care Provider] - Moody Mast MD [Physician] - 1 Week ( Chronic back pain, L2 compression fracture) Time of Disposition: 10:53
[2024-09-06] MEDS: HYDROmorphone HCL INJ (*CRX) 1 MG/ML SYR IM (11:03)
== END 2024-09-06 11:08 | disposition home or self-care (01) ==
PROVIDERS: Emergency Provider Student in an Organized Health Care Education/Training Program; PCP Internal Medicine
DX: M54.50 Low back pain, unspecified (principal); G89.29 Other chronic pain; M48.56XA Collapsed vertebra, not elsewhere classified, lumbar region, initial encounter for fracture; I70.90 Unspecified atherosclerosis; E78.5 Hyperlipidemia, unspecified; R73.03 Prediabetes; M19.90 Unspecified osteoarthritis, unspecified site; K21.9 Gastro-esophageal reflux disease without esophagitis; F41.9 Anxiety disorder, unspecified; F32.A Depression, unspecified; F17.210 Nicotine dependence, cigarettes, uncomplicated; Z96.652 Presence of left artificial knee joint; Z96.641 Presence of right artificial hip joint; Z79.899 Other long term (current) drug therapy
CPT/HCPCS: 96372; 99283; J1171

== ENCOUNTER 2024-09-14 12:12 | Outpatient (CLI) | payer MEDICARE, SELFPAY ==
--- NOTE | ~2024-09-14 | XR_ITS ---
EXAMINATION: XR chest 2V 09/14/2024 15:01 INDICATION: Preop PROCEDURE: 2 view chest COMPARISON: Comparison to multiple prior studies sequentially, with oldest reviewed study dated 09/2015. FINDINGS: The lungs are clear. The lungs are hyperinflated which is consistent with, but not diagnost ic of chronic obstructive pulmonary disease. The cardiomediastinal silhouette is within normal limit s. There are no pleural effusions. There is no pneumothorax suspected. IMPRESSION: 1: NO ACUTE CARDIOPULMONARY DISEASE. Reviewed, dictated and finalized at location A.
--- NOTE | 2024-09-14 12:48 | ECG_ITS ---
Test Date: 2024-09-14 13:03:42 Measurements Intervals [place] Rate: 67 P: 34 [place]: 162 QRS: -41 QRSD: 107 T: 9 QT: 406 QTc: 430 Interpretive Statements SINUS RHYTHM WITH MARKED SINUS ARRHYTHMIA LEFT AXIS DEVIATION CANNOT R/O SEPTAL INFARCT, AGE INDETERMINATE BORDERLINE T WAVE ABNORMALITY- ANT/INF LEADS ABNORMAL ECG No previous ECG available for comparison Electronically Signed On 09-14-2024 13:58:19 CDT by Jase Gaytan D.O.
[2024-09-14 13:24] LABS: Hematocrit 44.8 % (37.0-47.0); Hemoglobin 14.2 g/dL (12.0-15.0); Mean Corpuscular HGB Conc 31.7 g/dl (32-36); Mean Corpuscular Hemoglobin 32.1 pg (26-34); Mean Corpuscular Volume 101.1 fl (80-100); Mean Platelet Volume 9.5 fl (7.4-10.4); Platelet Count Result 438 k/mm3 (150-375); Red Blood Count 4.43 M/mm3 (4.2-5.4); Red Cell Distribution Width 15.7 % (11.5-14.5); White Blood Count 6.2 K/mm3 (4.5-10.0)
[2024-09-14 13:42] LABS: Prothrombin Time 13.2 Seconds (11.1-14.7)
[2024-09-14 13:43] LABS: Partial Thromboplastin Time 33.6 Seconds (22.3-36.8)
--- OUTSIDE RECORDS SUMMARY | 2024-09-14 13:56 | XMS_ITS | Clinical Summary ---
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 Gender Identity Not on file Sexual Orientation Not on file Obstetrics History Last Filed Vital Signs Vital Sign Reading Time Taken Comments Blood Pressure 132/80 09/26/2017 9:48 AM CDT Pulse 71 09/26/2017 9:48 AM CDT Temperature - - Respiratory Rate 18 09/26/2017 9:48 AM CDT Oxygen Saturation 93% 08/13/2017 12:10 PM BEADWORKER Inhaled Oxygen Concentration - - Weight 61.7 kg (136 lb) 09/26/2017 9:48 AM CDT Height 157.5 cm (5' 2 ) 09/26/2017 9:48 AM CDT Body Mass Index 24.87 09/26/2017 9:48 AM CDT Plan of Treatment Not on [place] [id number] [facility] [place] [id number] Care Teams Revenue Stamper Relationship Specialty Start Date End Date Gume Bermudez MD [address] [facility] [address] [place], [place] [id number] PCP - General Internal Medicine 08/13/17
--- OUTSIDE RECORDS SUMMARY | 2024-09-14 13:56 | XMS_ITS | Clinical Summary ---
Author Organization [facility] Address [address] [place] [address] Phone Care Team Providers Care Recyclable Materials Distributor Name Role Phone Gume Bermudez MD Primary Care Provider [phone] Social History Tobacco Use Types Packs/Day Years [...] of 4 - PCV) 2009 Influenza Vaccine (Season Ended) 2025 Care Teams Recyclable Materials Distributor Relationship Specialty Start Date End Date Gume Bermudez MD [address] [facility] [address] [facility] [address] [place] [address] PCP - General Internal Medicine 01/15/22
--- OUTSIDE RECORDS SUMMARY | 2024-09-14 13:56 | XMS_ITS | Referral Summary ---
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 Gender Identity Not on file Sexual Orientation Not on file Last Filed Vital Signs Vital Sign Reading Time Taken Comments Blood Pressure 132/80 09/26/2017 9:48 AM CDT Pulse 71 09/26/2017 9:48 AM CDT Temperature - - Respiratory Rate 18 09/26/2017 9:48 AM CDT Oxygen Saturation 93% 08/13/2017 12:10 PM HEAT TREAT TECHNICIAN Inhaled Oxygen Concentration - - Weight 61.7 kg (136 lb) 09/26/2017 9:48 AM CDT Height 157.5 cm (5' 2 ) 09/26/2017 9:48 AM CDT Body Mass Index 24.87 09/26/2017 9:48 AM CDT Plan of Treatment Not on file Insurance [place] MEDICARE Care Teams Rope Making Machine Operator Relationship Specialty Start Date End Date Gume Bermudez MD [address] [place] [address] [place] [address] PCP - General Internal Medicine 08/13/17
[2024-09-14 14:00] LABS: Alanine Aminotransferase 20 U/L (6-35); Albumin Level 3.6 g/dL (3.5-5.1); Alkaline Phosphatase 113 U/L (38-126); Anion Gap 5 mmol/L (4-12); Aspartate Amino Transferase 35 U/L (14-36); Bilirubin,Total 0.5 mg/dL (0.2-1.3); Blood Urea Nitrogen 12 mg/dL (7-17); Calcium 8.6 mg/dL (8.4-10.2); Carbon Dioxide 28 mmol/L (22-30); Chloride 107 mmol/L (98-107); Estimated Glomerular Filt Rate > 60; Glucose 85 mg/dL (65-110); Potassium 3.8 mmol/L (3.4-5.0); Sodium 140 mmol/L (137-145)
== END 2024-09-14 12:13 | disposition home or self-care (01) ==
PROVIDERS: PCP Internal Medicine; Visit Provider Anesthesiology Pain Medicine
DX: D68.9 Coagulation defect, unspecified (principal); Z01.818 Encounter for other preprocedural examination
CPT/HCPCS: 36415; 71046; 80053; 85027; 85610; 85730; 93005

== ENCOUNTER 2024-09-15 00:26 | Day surgery (SDC) | payer MEDICARE, SELFPAY ==
--- NOTE | 2024-09-14 14:06 | PC.NURSE ---
Addendum entered by Hoa Díaz RN 09/14/24 14:23: NOTHING TO EAT OR DRINK AFTER MIDNIGHT TAKE SHOWER/BATH THE NIGHT BEFORE AND MORNING OF SURGERY Original Note: Report to the Outpatient Waiting Room, entrance under the green pavilion located off [facility], at time __9 AM on date _09/15/24 . Planned Procedure Time: _11 AM .? Time changes happen often and if your time is changed the preop area will call you the afternoon before. - You and your visitor will be asked to self-screen and do not enter if you have any COVID symptoms. Please call surgeon if you need to reschedule. - A mask is optional within the hospital at this time. Take only the following medications with a SIP of water on the morning of surgery: ___DULOXETINE,HYDROCODONE IF NEEDED FOR PAIN,ISOSORBIDE,LEVOTHYROXINE,DIAZEPAM IF NEEDED DO NOT STOP ANY OF YOUR OTHER PRESCRIPTION MEDICATIONS PRIOR TO SURGERY EXCEPT THE FOLLOWING Hold all vitamins and supplements for 3 days per anesthesiologist. Medications to discontinue per physician NONE Date to take last dose Please no make-up, nail frisian, hairspray, perfume, deodorant, or body powder the day of surgery.? No jewelry (including any body piercings) or valuables the day of surgery, leave them at home.? Please take a shower or bath the night before, or the morning of, surgery with an antibacterial soap.? Wear comfortable, loose fitting clothing.? Children are encouraged to wear pajamas. - Jewelry must be removed prior to entering the operating room.? Rings and piercings that are not removed may be cut off. - The hospital will not accept responsibility for valuables.? - Please leave all valuables, including medications, at home the day of surgery. If you are going home after surgery, a licensed minibus driver must drive you home.? - NO public transportation without another adult if you receive anesthesia. - We recommend that an adult stay with you for 24 hours following discharge. - We also recommend that you do not drive, make important decision, drink alcoholic beverages, or take any drugs that were not prescribed by your health care provider for at least 24 hours after your discharge time. Follow any additional instructions given to you from your surgeon. Telephone instructions given to __SON JOHN and asked if any additional questions and then verbalized understanding. Patient advised to call surgeon office or pre surgery nurse liaison [phone] if any additional questions.
[2024-09-14 14:26] VITALS: BMI 25.2
[2024-09-15] VITALS (8 sets, daily range): BP systolic 137–159; BP diastolic 60–80; PULSE 54–83; RESP 15–20; TEMP 36.4–36.9; O2SAT 95–100; BMI 24.9
--- NOTE | ~2024-09-15 | XR_ITS ---
EXAMINATION: XR fluoroscopy no charge DATE: 09/15/2024 11:17 INDICATION: L2 vertebral augmentation and bone biopsy TECHNIQUE: 14 fluoroscopic images of the lumbar spine were obtained during procedure performed by Dr. Mast. Radiologist was not present for the imaging or procedure. The amount of fluoroscopy time used during this procedure was 2.8 minutes. Total DAP was 9.42 Gycm^2. COMPARISON: None. FINDINGS: Images demonstrate and L2 compression fracture with one third vertebral body height loss. A large lar ge-bore trochar needle was advanced through the right pedicle needle tip near the center of the verte bral body. Subsequent images demonstrate expansion of a contrast filled balloon into the central aspe ct of the vertebral body. The cavity is subsequently filled with methylmethacrylate injected through the needle. IMPRESSION: 1. Fluoroscopy utilized during kyphoplasty at L2 compression fracture. See procedure note for further detail. Reviewed, dictated and finalized at location A. IMPRESSION: 1. Fluoroscopy utilized during kyphoplasty at L2 compression fracture. See proc edure note for further detail.
--- OUTSIDE RECORDS SUMMARY | 2024-09-15 00:29 | XMS_ITS | Clinical Summary ---
Author Organization [facility] Address [address] [place] [address] Phone Care Team Providers Care Control Clerk Repairs Name Role Phone Gume Bermudez MD Primary Care Provider [phone] Social History Tobacco Use Types Packs/Day Years [...] Influenza Vaccine (Season Ended) 2025 Care Teams Control Clerk Repairs Relationship Specialty Start Date End Date Gume Bermudez MD [address] [facility] [address] [facility] [address] [place] [address] PCP - General Internal Medicine 01/15/22
--- OUTSIDE RECORDS SUMMARY | 2024-09-15 00:29 | XMS_ITS | Clinical Summary ---
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 Gender Identity Not on file Sexual Orientation Not on file Obstetrics History Last Filed Vital Signs Vital Sign Reading Time Taken Comments Blood Pressure 132/80 09/26/2017 9:48 AM CDT Pulse 71 09/26/2017 9:48 AM CDT Temperature - - Respiratory Rate 18 09/26/2017 9:48 AM CDT Oxygen Saturation 93% 08/13/2017 12:10 PM STEAMFITTER SUPERVISOR Inhaled Oxygen Concentration - - Weight 61.7 kg (136 lb) 09/26/2017 9:48 AM CDT Height 157.5 cm (5' 2 ) 09/26/2017 9:48 AM CDT Body Mass Index 24.87 09/26/2017 9:48 AM CDT Plan of Treatment Not [place] [id number] [facility] [place] [id number] Care Teams Monitoring Tech Relationship Specialty Start Date End Date Gume Bermudez MD [address] [facility] [address] MED[address]INE [place], [place] [id number] PCP - General Internal Medicine 08/13/17
--- OUTSIDE RECORDS SUMMARY | 2024-09-15 00:29 | XMS_ITS | Referral Summary ---
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 Gender Identity Not on file Sexual Orientation Not on file Last Filed Vital Signs Vital Sign Reading Time Taken Comments Blood Pressure 132/80 09/26/2017 9:48 AM CDT Pulse 71 09/26/2017 9:48 AM CDT Temperature - - Respiratory Rate 18 09/26/2017 9:48 AM CDT Oxygen Saturation 93% 08/13/2017 12:10 PM MEAT HANGER Inhaled Oxygen Concentration - - Weight 61.7 kg (136 lb) 09/26/2017 9:48 AM CDT Height 157.5 cm (5' 2 ) 09/26/2017 9:48 AM CDT Body Mass Index 24.87 09/26/2017 9:48 AM CDT Plan of Treatment Not on file Insurance [place] [employer] Member Subscriber Plan / Payer (Ef fective 2017-Present) Name:Princess Radha Relation to Subscriber:Self Name:Princess Radha Payer ID:[id number] Group ID:Not on file Type:[employer] Address: [facility] [address] [place] [address] MEDICARE Care Teams Machine Long Goods Helper Relationship Specialty Start Date End Date Gume Bermudez MD [address] [place] [address] PCP - General Internal Medicine 08/13/17
--- NOTE | 2024-09-15 10:08 | P.PNAN_ITS ---
Anes - Initial Pre Proc Eval Procedure: Operation Date: 09/15/24 11:00 Proposed Procedures p Balloon Assisted Verterbral Augmentation at L2 with Intraosseous Bone Biopsy Under Fluoroscopic Guidance - Moody Mast MD Date/Time: 09/15/24 10:08 Surgeon: Moody Mast MD Pre Op Diagnosis: compression fracture at L2 Patient Data Age: 78 Gender: F Height: 1.57 m Weight: 62.6 kg Allergies Allergy/AdvReac Type Severity Reaction Status Date / Time procaine (From Novocain) Allergy Unknown Unknown Verified 09/14/24 14:02 Home Medications ?Medication ?Instructions ?Recorded ?Confirmed ?Type nystatin-triamcinolone 100,000 1 applic topical BID #60 grams 05/05/24 09/14/24 Rx unit/g-0.1 % topical cream sucralfate 1 gram tablet (Carafate) 1 g PO .COMPLEX PRN nausea #30 tabs 05/29/24 09/14/[address] Astorga's Heel cream topical 06/11/24 09/01/24 History duloxetine 60 mg capsule,delayed 60 mg PO DAILY #90 caps 06/11/24 09/14/24 Rx release (Cymbalta) urea 40 % topical cream 1 applic topical BID #28.35 grams 06/11/24 09/14/24 Rx tirzepatide 2.5 mg/0.5 mL 2.5 mg (0.5 mL) subcut WEEKLY #2 mL 06/16/24 09/14/24 Rx subcutaneous pen injector levothyroxine 112 mcg tablet See Rx Instructions .Route 06/19/24 09/14/24 Rx .COMPLEX #90 tabs diazepam 10 mg tablet 10 mg PO TID PRN anxiety #90 tabs 06/26/24 09/14/24 Rx ezetimibe 10 mg tablet See Rx Instructions .Route 06/29/24 09/14/24 Rx .COMPLEX #90 tabs isosorbide mononitrate 60 mg See Rx Instructions .Route 06/29/24 09/14/24 Rx tablet,extended release 24 hr .COMPLEX #90 tabs rosuvastatin 40 mg tablet See Rx Instructions .Route 06/29/24 09/14/24 Rx .COMPLEX #90 tabs amitriptyline 50 mg tablet See Rx Instructions .Route 06/30/24 09/14/24 Rx .COMPLEX #90 tabs triamcinolone acetonide 0.5 % 1 applic topical BID #60 grams 07/16/24 09/14/24 Rx topical cream ciprofloxacin HCl 250 mg tablet 250 mg PO Q12H #14 tabs 08/18/24 09/14/24 Rx nitroglycerin 0.4 mg sublingual 0.4 mg sublingual Q5M PRN Chest 08/20/24 09/14/24 Rx tablet Pain #25 tabs hydrocodone 5 mg-acetaminophen 325 1 tablet PO Q8H PRN pain #14 tabs 09/06/24 09/14/24 Rx mg tablet hydrocodone 5 mg-acetaminophen 325 1 tablet PO Q4H PRN pain #30 tabs 09/08/24 09/14/24 Rx mg tablet hydrocodone 10 mg-acetaminophen 1 tablet PO Q6H #10 tabs 09/14/24 Rx 325 mg tablet Patient hx anesthesia problems: none Family hx anesthesia problems: none Results Review: All pre-operative results and documents have been reviewed as part of the pre- operative evaluation. 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 Code status: Full code. Smoking packs per day: 1 Smoking cigarettes per day: 20.0 Years smoked: 30 Smoking pack-years: 30.00 Smoking status: Current every day smoker Tobacco type: cigarettes Alcohol intake: never Substance use: never Substance use type: does not use Current Housing: Decline to Answer Concerned About Future Housing: Decline to Answer Difficulty Paying Gas/Electric Bills: Decline to Answer Difficulty Paying for Meds: Decline to Answer Currently Unemployed: Decline to Answer Education: Decline to Answer Difficulty w/ Childcare or Family Care: Decline to Answer Living arrangements: alone Spiritual care concerns: No Anes - Eval Final PreProcedure Day of Procedure 09/15/24 10:08 Patient weight: normal Heart: regular rate and rhythm Lungs: decreased breath sounds Airway: Mallampati scale class II Neurological: other (alert) Last oral intake: >/= 8 hours ASA classification: IV Emergent: no Anesthetic plan: proceed Anesthesia type and monitoring: general ETT and standard monitoring Results Review: All pre-operative results and documents have been reviewed as part of the pre- operative evaluation. Informed Consent: The patient's anesthetic plan and its attendant risks and benefits were discussed with the patient/family/POA. Questions were solicited and answers provided to the satisfaction of the patient/family/POA.
--- NOTE | 2024-09-15 10:13 | WPDHPUPDATE1 ---
History and Physical Update Update Date/Time: 09/15/24 10:13 History and Physical has been reviewed, including an updated exam of the patient. There are NO changes in the patient's condition. Risks, benefits, and alternatives have been discussed and questions answered. Patient agrees to proceed with procedure.
--- NOTE | 2024-09-15 10:14 | P.OP_ITS ---
Procedure Note - Detailed Date of Procedure 09/15/24 Pre-op Diagnosis compression fracture at L2 Post-op Diagnosis Same Procedure Performed Percutaneous balloon-assisted vertebral augmentation of the L2 vertebral body under fluoroscopic guidance (Kyphoplasty) with intraosseous bone biopsy. Surgeon Moody Mast MD Net Mvc Developer None. 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 Description of Procedure INFORMED CONSENT: Risks, benefits and alternatives to the procedure were discussed in detail with the patient who expressed explicit understanding and consent to proceed. Patient was informed verbally and in written form regarding the risks associated with the procedure including the low risk of serious local or systemic infection, bleeding/bruising, allergic reaction, pulmonary embolus/edema, extravasation of cement requiring surgical intervention, worsening fracture, nerve or organ injury, paralysis, procedural site pain or discomfort, worsening pain and/or mobility, failure to treat and/or disfigurement. The patient expressed explicit understanding and consent to proceed. All materials required for the procedure were available prior to procedure start. Site and side were marked prior to procedure and confirmed in the presence of the unsedated patient. PROCEDURE IN DETAIL: After full informed consent was obtained, appropriate IV access was confirmed by Anesthesia without difficulty. The patient was escorted to the operative theater. Supplemental oxygen was initiated to maintain O2 saturation between 92-99%. Careful positioning was undertaken and ASA standard monitors were applied and checked routinely throughout the case. Prophylactic antibiotics were administered prior to procedure start. Patient was placed in the prone position in optimal extension using pillows and the thoracolumbar spine was prepared and draped in the usual sterile manner using tinted ChloraPrep scrub and allowed to dry completely for at least 3 minutes. Fluoroscopy in the AP and lateral position was used with perfect linear projections at the L2 level to identify/confirm the procedural level and presence of deformity. Percutaneous trocar was introduced from a leftward rightward approach (transpedicular approach) via a small stab skin incision made at the entry site using a #11 scalpel following adequate anesthesia via infiltration of a 1:1 admixture of 2% PF lidocaine with epinephrine and 0.5% PF bupivacaine with a 2 inch 27-gauge needle after negative aspiration for blood or body fluid. Anesthesia was extended to periosteum at the intended procedural level with a 3.5 inch 22g Quincke spinal needle. A 10- gauge trocar with a wallace tip was introduced through the skin incision and docked on the right posterior pedicle of L2 in the superolateral (11 o'clock) position. Under live fluoroscopy while alternating between AP and lateral views, the trocar was advanced intermittently in the anterior, medial and inferior directions using a metal surgical mallet, taking care to advance only in the AP view, using lateral views to confirm depth and direction. In the AP view, as the tip of the trocar approached (but did not violate) the medial, inferior border of the pedicle, lateral view was utilized to confirm advancement of the trocar through the pedicle and into the posterior third of the vertebral body. Using the glass sagger-provided bone biopsy device, an intravertebral core biopsy was obtained from each level treated and sent in an appropriately-labeled sterile specimen cup with formalin for pathological analysis. Trocar was then advanced in the lateral view, with appropriate trajectory and final placement identified/confirmed by intermittent evaluation in the AP view until the trocar tip reached the anterior 3rd of the vertebral body at or near midline without violation of the anterior or lateral vertebral ulloa. A 20 ml balloon catheter prefilled with Omnipaque 300 contrast medium was advanced to the anterior third of the vertebral body at or near midline in the medial and lateral views and inflated with contrast to a volume of 5 ml or less at an internal pressure of 400 psi or less, creating an appropriately sized cavity within the vertebral body with correct balloon location identified in both the AP and Lateral views. The cement introducer was then advanced into the far end of the cavity and the void was filled in a controlled fashion, in 0.5-1.0 mL increments, monitoring in both the AP and Lateral views for appropriate cement position and fill, utilizing a total of 3-5 mm of polymethylmethacrylate containing nonionic contrast, stopping with any posterior spread or evidence of vascular, disc space or extra vertebral encroachment of cement. Once appropriate fill was confirmed in both the lateral and AP views, the cement introducer was withdrawn, stylette was reinserted and trocar removed in a stepwise fashion under live fluoroscopy in the lateral view to ensure lack of cement migration into the trocar tracts. Patient was allowed to remain in the prone position under relative thoracolumbar extension until cement had fully hardened, or approximately 15 minutes after initial mixing. The patient's skin was cleansed and the stab incision(s) were closed using benzoin and Steri-Strips in a nicolette- crossing fashion and covered by a non-stick sponge pad and self-adherent clear, occlusive dressing. The patient tolerated this procedure well. Anesthesia was reversed without difficulty. The patient was transported to the recovery area in stable condition and without evidence of subsequent complication. Peripheral IV was discontinued. Patient was eventually discharged under their own power with pain satisfactorily controlled, without significant nausea or neurologic deficit and with full ability to ambulate, void and tolerate liquids by mouth. The patient was instructed to avoid excessive activity for the next 48 hours. Patient was restricted from driving for 48 hours. The patient was instructed to restart any anticoagulants 24 hours after the procedure unless otherwise directed by their prescribing physician. They were instructed to avoid heavy lifting, pushing, pulling or carrying weights greater than 5 pounds until released. They are to avoid any overhead work. The patient is to sponge bathe only for the next 48 hours. Top bandage can be removed after 48 hours. Steri- Strips are to remain in place until they fall off on their own or until removed by physician. After 48 hours and top bandage is removed, patient may resume showering. No bathing or soaking for one week or as released by physician. The patient is to monitor for signs of infection including fevers, chills, night sweats, redness, swelling or discharge at the procedural site. They are to monitor for signs of neurologic change including new numbness, weakness or pain in the upper or lower extremities, headaches or loss of bowel or bladder control. Should they develop any of these symptoms they are to call our office immediately during office hours or report directly to the nearest emergency department if after hours or if no immediate answer. COMPLICATIONS: None. COMMENTS: None. EBL: Minimal. DRAINS: None. PACKING: None. PATHOLOGY: Intraosseous, intravertebral core bone biopsy labeled L2 vertebral body sent in preservative. Drains No Packing No Complications No immediate complications Condition Stable Disposition PACU [facility] Billing Surgery - Charge Forward: Surgery Billing
[2024-09-15] MEDS: LACTATED RINGERS 1,000 ML 30 ML IV CONT (10:19)
[2024-09-15] MEDS: BUPIVACAINE/EPINEPHRINE 0.5% 50 ML VIAL 10 ML INFILTRATE (10:49)
[2024-09-15] MEDS: LIDOCAINE 2% PF LOCAL INJ 5 ML VIAL 10 ML INFILTRATE (10:50)
[2024-09-15] MEDS: fentaNYL CITRATE INJ (*CRX) 100 MCG/2 ML VIAL 25 MCG IV PUSH ×2 (11:19→11:23)
[2024-09-15] MEDS: oxyCODONE HCL (*CRX) 5 MG TAB IR PO (12:13)
== END 2024-09-15 12:52 | disposition home or self-care (01) ==
PROVIDERS: PCP Internal Medicine; Visit Provider Anesthesiology Pain Medicine
PROC: (CPT 22514; principal; 2024-09-15 11:00)
DX: M80.08XA Age-related osteoporosis with current pathological fracture, vertebra(e), initial encounter for fracture (principal); Z78.0 Asymptomatic menopausal state; F17.210 Nicotine dependence, cigarettes, uncomplicated; K21.9 Gastro-esophageal reflux disease without esophagitis; E78.5 Hyperlipidemia, unspecified
CPT/HCPCS: 22514; 88307; 88311; 99199; A9270; J0330; J1100; J2003; J2405; J2704; J3010; J7120; Q9965

== ENCOUNTER 2024-09-20 16:44 | Emergency (ER) | payer MEDICARE, SELFPAY ==
[2024-09-20 16:42] VITALS: BP 112/77; PULSE 78; RESP 14; TEMP 36.9; O2SAT 94
--- OUTSIDE RECORDS SUMMARY | 2024-09-20 17:18 | XMS_ITS | Referral Summary ---
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 Gender Identity Not on file Sexual Orientation Not on file Last Filed Vital Signs Vital Sign Reading Time Taken Comments Blood Pressure 132/80 09/26/2017 9:48 AM CDT Pulse 71 09/26/2017 9:48 AM CDT Temperature - - Respiratory Rate 18 09/26/2017 9:48 AM CDT Oxygen Saturation 93% 08/13/2017 12:10 PM CYLINDER DIE MACHINE HELPER Inhaled Oxygen Concentration - - Weight 61.7 kg (136 lb) 09/26/2017 9:48 AM CDT Height 157.5 cm (5' 2 ) 09/26/2017 9:48 AM CDT Body Mass Index 24.87 09/26/2017 9:48 AM CDT Plan of Treatment Not on file Insurance [employer] MEDICARE Care Teams Demolition Hammer Operator Relationship Specialty Start Date End Date Gume Bermudez MD [address] [place] [address] PCP - General Internal Medicine 08/13/17
--- OUTSIDE RECORDS SUMMARY | 2024-09-20 17:18 | XMS_ITS | Clinical Summary ---
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 Gender Identity Not on file Sexual Orientation Not on file Obstetrics History Last Filed Vital Signs Vital Sign Reading Time Taken Comments Blood Pressure 132/80 09/26/2017 9:48 AM CDT Pulse 71 09/26/2017 9:48 AM CDT Temperature - - Respiratory Rate 18 09/26/2017 9:48 AM CDT Oxygen Saturation 93% 08/13/2017 12:10 PM AIR BRAKE WORKER Inhaled Oxygen Concentration - - Weight 61.7 kg (136 lb) 09/26/2017 9:48 AM CDT Height 157.5 cm (5' 2 ) 09/26/2017 9:48 AM CDT Body Mass Index 24.87 09/26/2017 9:48 AM CDT Plan of Treatment Not on [place] [id number] [facility] [place]URANCE [place] [id number] Care Teams Test And Balance Engineer Relationship Specialty Start Date End Date Gume Bermudez MD [address] [facility] [address] [place], [place] [id number] PCP - General Internal Medicine 08/13/17
--- OUTSIDE RECORDS SUMMARY | 2024-09-20 17:18 | XMS_ITS | Clinical Summary ---
Author Organization [facility] Address [address] [place] [address] Phone Care Team Providers Care Potato Chip Packaging Machine Operator Name Role Phone Gume Bermudez MD Primary Care Provider [phone] Social History Tobacco Use Types Packs/Day Years Used Date Smoking Tobacco: Never Assessed Comments Unknown Sex and Gender Information Value Date Recorded Sex Assigned at Not on file Legal Sex Female 10:55 AM MDT Gender Identity Not on file Sexual Orientation Not on file Plan of Treatment Health Maintenance Due Date Last Done Comments Pneumococcal PPSV23/PCV13 65 + Years / Low and Medium Risk (1 of 4 - PCV) 1994 Influenza Vaccine (Season Ended) 2025 Insurance MEDICARE [facility] [place] [id number] Care Teams Potato Chip Packaging Machine Operator Relationship Specialty Start Date End Date Gume Bermudez MD [address] [facility] [address] [facility] [address] [place] [id number] PCP - General Internal Medicine 01/15/22
[2024-09-20 17:19] LABS: Basophils Absolute Auto 0.1 K/mm3 (0.0-0.1); Basophils Percent Auto 0.8 % (0.2-1.2); Eosinophils Absolute Auto 0.2 K/mm3 (0-0.3); Eosinophils Percent Auto 2.7 % (0-4.4); Hemoglobin 12.5 g/dL (12.0-15.0); Immature Granulocyte Absolute 0.04 K/mm3 (0.00-0.031); Immature Granulocyte Percent A 0.6 % (0-0.5); Lymphocytes Absolute Auto 2.08 K/mm3 (0.9-3.2); Lymphocytes Percent Auto 31.2 % (18.3-44.2); Mean Corpuscular HGB Conc 32.1 g/dl (32-36); Mean Corpuscular Hemoglobin 31.9 pg (26-34); Mean Corpuscular Volume 99.5 fl (80-100); Mean Platelet Volume 9.4 fl (7.4-10.4); Monocytes Absolute Auto 0.6 K/mm3 (0.1-0.6); Monocytes Percent Auto 8.6 % (2.6-8.5); Neutrophils Absolute Auto 3.7 K/mm3 (1.3-6.7); Neutrophils Percent Auto 56.1 % (45.5-73.1); Platelet Count Result 348 k/mm3 (150-375); Red Blood Count 3.92 M/mm3 (4.2-5.4); Red Cell Distribution Width 15.4 % (11.5-14.5); White Blood Count 6.7 K/mm3 (4.5-10.0)
--- NOTE | 2024-09-20 17:31 | PC.NURSE ---
Pt. continuously pressing call light asking for water. This RN and Alice RN educated pt. that she cannot have anything to drink d/t being here for abdominal pain. Pt. upset by this answer. Pt. also upset about wait time to see a provider. Pt. is A&Ox4 with stable V.S. Pt. states she would like to leave and asked this RN to call her a cab that she is able to pay for. Pt. ambulatory with a steady gait.
[2024-09-20 17:38] LABS: Alanine Aminotransferase 14 U/L (6-35); Albumin Level 2.9 g/dL (3.5-5.1); Alkaline Phosphatase 100 U/L (38-126); Anion Gap 3 mmol/L (4-12); Aspartate Amino Transferase 27 U/L (14-36); Bilirubin,Total 0.3 mg/dL (0.2-1.3); Blood Urea Nitrogen 18 mg/dL (7-17); Calcium 8.6 mg/dL (8.4-10.2); Carbon Dioxide 30 mmol/L (22-30); Chloride 104 mmol/L (98-107); Estimated CRCL calculation 40 ml/min; Estimated Glomerular Filt Rate > 60; Glucose 111 mg/dL (65-110); Lipase 38 U/L (23-300); Potassium 3.8 mmol/L (3.4-5.0); Sodium 137 mmol/L (137-145)
[2024-09-20 17:46] LABS: Troponin I < 0.012 ng/mL (0.000-0.034)
== END 2024-09-20 17:58 | disposition left against medical advice (07) ==
PROVIDERS: Emergency Provider Physician Assistant; PCP Internal Medicine
DX: R10.84 Generalized abdominal pain (principal)
CPT/HCPCS: 36415; 80053; 83690; 84484; 85025; 99199

== ENCOUNTER 2024-10-12 01:23 | Day surgery (SDC) | payer MEDICARE, SELFPAY ==
[2024-10-06 11:08] VITALS: BMI 22.1
--- NOTE | 2024-10-06 11:40 | PC.NURSE ---
Report to the Outpatient Waiting Room, entrance under the green pavilion located off [facility], at time ___2:45PM____ on date ___10/12/24____. Planned Procedure Time: __3:45PM .? Time changes happen often and if your time is changed the preop area will call you the afternoon before. - You and your visitor will be asked to self-screen and do not enter if you have any COVID symptoms. Please call surgeon if you need to reschedule. - A mask is optional within the hospital at this time. LIGHT BREAKFAST/LUNCH ON DAY OF SURGERY. NOTHING TO EAT OR DRINK 2 HOURS BEFORE PROCEDURE (1:45PM). Take only the following medications on the morning of surgery: ____REGULAR MORNING MEDICATION DO NOT STOP ANY OF YOUR OTHER PRESCRIPTION MEDICATIONS PRIOR TO SURGERY EXCEPT THE FOLLOWING Medications to discontinue per physician NONE Date to take last dose Please no make-up, nail persian, hairspray, perfume, deodorant, or body powder the day of surgery.? No jewelry (including any body piercings) or valuables the day of surgery, leave them at home.? Please take a shower or bath the night before, or the morning of, surgery with an antibacterial soap.? Wear comfortable, loose fitting clothing.? - Jewelry must be removed prior to entering the operating room.? Rings and piercings that are not removed may be cut off. - The hospital will not accept responsibility for valuables.? - Please leave all valuables, including medications, at home the day of surgery. If you are going home after surgery, a licensed pharmacy delivery driver must drive you home.? NO DRIVING FOR [address] XIAO. - NO public transportation without another adult if you receive anesthesia. - We recommend that an adult stay with you for 24 hours following discharge. - We also recommend that you do not drive, make important decision, drink alcoholic beverages, or take any drugs that were not prescribed by your health care provider for at least 24 hours after your discharge time. Follow any additional instructions given to you from your surgeon. Telephone instructions given to ____PATIENT and asked if any additional questions and then verbalized understanding. Patient advised to call surgeon office or pre surgery nurse liaison [phone] if any additional questions.
--- NOTE | ~2024-10-12 | XR_ITS ---
INTRAOPERATIVE FLUOROSCOPY: CLINICAL HISTORY: 78 years old Female; RIGHT L3,4,5 BLOCK/RIGHT L4,5,S1 FACET JT PROCEDURE COMMENTS: Limited intraoperative fluoroscopy of the lumbar spine was performed. CUMULATIVE DOSE: 4.1 mGy FLUOROSCOPY TIME: 26 seconds FINDINGS/IMPRESSION: Please refer to operative note for further details. Reviewed, dictated and finalized at location A.
--- OUTSIDE RECORDS SUMMARY | 2024-10-12 01:30 | XMS_ITS | Clinical Summary ---
Author Organization [facility] Address [address] [place] [address] Phone Care Team Providers Care Learning Designer Name Role Phone Gume Bermudez MD Primary Care Provider [phone] Social History Tobacco Use Types Packs/Day Years [...] Influenza Vaccine (Season Ended) 2025 Insurance MEDICARE [facility] [place] [id number] Care Teams Learning Designer Relationship Specialty Start Date End Date Gume Bermudez MD [address] [facility] [address] [facility] [address] [place] [phone] PCP - General Internal Medicine 01/15/22
--- OUTSIDE RECORDS SUMMARY | 2024-10-12 01:30 | XMS_ITS | Clinical Summary ---
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 Gender Identity Not on file Sexual Orientation Not on file Obstetrics History Last Filed Vital Signs Vital Sign Reading Time Taken Comments Blood Pressure 132/80 09/26/2017 9:48 AM CDT Pulse 71 09/26/2017 9:48 AM CDT Temperature - - Respiratory Rate 18 09/26/2017 9:48 AM CDT Oxygen Saturation 93% 08/13/2017 12:10 PM CHOCOLATE FINISHER OPERATOR Inhaled Oxygen Concentration - - Weight 61.7 kg (136 lb) 09/26/2017 9:48 AM CDT Height 157.5 cm (5' 2 ) 09/26/2017 9:48 AM CDT Body Mass Index 24.87 09/26/2017 9:48 AM CDT Plan of Treatment Not on file Insurance [employer] INSURANCE MEDICARE [facility] Address: [address] [address] [place] [address] MEDICARE Care Teams Family Services Coordinator Relationship Specialty Start Date End Date Gume Bermudez MD [address] [facility] [address] [place] [address] PCP - General Internal Medicine 08/13/17
--- OUTSIDE RECORDS SUMMARY | 2024-10-12 01:30 | XMS_ITS | Referral Summary ---
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 Gender Identity Not on file Sexual Orientation Not on file Last Filed Vital Signs Vital Sign Reading Time Taken Comments Blood Pressure 132/80 09/26/2017 9:48 AM CDT Pulse 71 09/26/2017 9:48 AM CDT Temperature - - Respiratory Rate 18 09/26/2017 9:48 AM CDT Oxygen Saturation 93% 08/13/2017 12:10 PM HAND ALTERATIONS TAILOR Inhaled Oxygen Concentration - - Weight 61.7 kg (136 lb) 09/26/2017 9:48 AM CDT Height 157.5 cm (5' 2 ) 09/26/2017 9:48 AM CDT Body Mass Index 24.87 09/26/2017 9:48 AM CDT Plan of Treatment Not on file Insurance [employer] [place] [address] [place] [address] Care Teams Hair Spring Winder Relationship Specialty Start Date End Date Gume Bermudez MD [address] [facility] [address] [place] [address] PCP - General Internal Medicine 08/13/17
--- NOTE | 2024-10-12 12:51 | WPDHPUPDATE1 ---
History and Physical Update Update Date/Time: 10/12/24 12:51 History and Physical has been reviewed, including an updated exam of the patient. There are NO changes in the patient's condition. Risks, benefits, and alternatives have been discussed and questions answered. Patient agrees to proceed with procedure.
--- NOTE | 2024-10-12 12:52 | W.PM.PROC2 ---
Procedure Note - Detailed Date of Procedure 10/12/24 Pre-op Diagnosis Lumbosacral spondylosis, chronic low back pain Post-op Diagnosis Same Procedure Performed Diagnostic Right Lumbar Medial Branch/Dorsal Ramus Blocks at L3, L4, L5 Treating the Ipsilateral L4-5, L5-S1 Facet Joints Under Fluoroscopic Guidance and with Contrast Control. (2 levels blocked). Surgeon Moody Mast MD Human Services Supervisor None. Anesthesia Local Description of Procedure INFORMED CONSENT: Risks, benefits and alternatives to the procedure were discussed in detail with the patient who expressed explicit understanding and consent to proceed. Patient was informed verbally and in written form regarding the risks associated with the procedure including the low risk of serious infection, bleeding/bruising, allergic reaction, nerve or organ injury, paralysis, procedural site pain or discomfort, worsening pain and/or mobility, failure to treat and/or disfigurement. The patient expressed explicit understanding and consent to proceed. All materials required for the procedure were available prior to procedure start. Site and side were marked prior to procedure and confirmed in the presence of the patient. PROCEDURE IN DETAIL: The patient was brought to the procedural suite and placed in the prone position. Patient was made comfortable with use of pillows under the head/chest, hips and ankles. Skin overlying the injection site on the affected side(s) was prepared broadly with ChloraPrep applicator and draped in a sterile manner. Aseptic technique was used throughout. The endplates of the vertebral bodies at the site(s) of interest were aligned in the AP view. Ipsilateral oblique angulation was utilized to optimize visualization of the intersection between the superior articulating process and transverse process at each target site. Local anesthesia was established by infiltration with approximately 5 mL of 1% lidocaine via a 1-1/2 inch 27-gauge needle. A 25-gauge 3.5 inch Quincke spinal needle was advanced until the needle tip contacted periosteum at the target site, right L3. Lateral view was utilized to confirm the appropriate placement of the needle tip just anterior to the facet line and superior to the pedicle. In the Lateral view, 0.25 mL of Omnipaque 300 contrast medium was injected after negative aspiration for CSF, blood or other bodily fluid, showing appropriate extra-articular spread of contrast without evidence of intravascular, foraminal or intrathecal placement. A 0.5 mL solution of 0.5% PF bupivacaine was injected after negative repeat aspiration. Appropriate spread of the injectate was confirmed with washout of previously injected contrast. No parasthesias were elicited. Needle was removed completely intact without difficulty. The same exact procedure was repeated for all remaining levels on the ipsilateral side, right L4, L5 medial branches/dorsal ramus, modified as necessary to accommodate for the new target location with identical findings and results and no evidence of complication. Images were saved and documented in the patient chart. Patient's skin was cleaned and sterile bandage applied. The patient tolerated the procedure well. The patient was transported to the recovery area in stable condition where they were observed for an appropriate amount of time prior to discharge, without evidence of complication. Patient was instructed on the appropriate completion of a pain diary over the next 12-24 hours. The patient was instructed to avoid excessive activity for the next 48 hours, including climbing and frequent use of stairs. Showers only for 48 hours. They were instructed not to drive or operate heavy machinery for 24 hours. They are to monitor for severe headaches, fevers, chills, night sweats, erythema/swelling at the site or any other signs of infection, bleeding/bruising, bowel or bladder changes as well as new pain, weakness or numbness in the upper or lower extremity. Should they notice these changes, they are instructed to call our office immediately or report directly to the nearest Emergency Department if no answer or if after posted office hours. COMPLICATIONS: None COMMENTS: None CONTRAST WASTED: 29.25 mL Omnipaque 300. Complications No immediate complications Condition Stable Disposition Same day [facility] Billing Surgery - Charge Forward: Surgery Billing
[2024-10-12 14:54] VITALS: BP 136/63; PULSE 75; RESP 20; TEMP 37.1; O2SAT 99
[2024-10-12 15:54] VITALS: BP 133/72; PULSE 83; RESP 16; O2SAT 97
[2024-10-12 15:59] VITALS: BP 125/68; PULSE 79; RESP 16; O2SAT 98
[2024-10-12] MEDS: BUPivacaine HCL 0.5% PF 30 ML VIAL INFILTRATE (15:59)
[2024-10-12 16:05] VITALS: BP 121/91; PULSE 64; RESP 18; O2SAT 100
== END 2024-10-12 16:24 | disposition home or self-care (01) ==
PROVIDERS: PCP Internal Medicine; Visit Provider Anesthesiology Pain Medicine
PROC: (CPT 64493; principal; 2024-10-12 15:45)
DX: M47.817 Spondylosis without myelopathy or radiculopathy, lumbosacral region (principal); G89.29 Other chronic pain
CPT/HCPCS: 64493; 64494; 99199; Q9965

== ENCOUNTER 2024-11-03 09:59 | Day surgery (SDC) | payer MEDICARE, SELFPAY ==
--- NOTE | ~2024-11-03 | XR_ITS ---
INTRAOPERATIVE FLUOROSCOPY: CLINICAL HISTORY: 78 years old Female; DIAG/PROG RIGHT L3,L4,L5 MEDIAL BRANCH/DORSAL RAMUS BLK#2 PROCEDURE COMMENTS: Limited intraoperative fluoroscopy of the lumbar spine was performed. CUMULATIVE DOSE: 8 mGy FLUOROSCOPY TIME: 32 seconds FINDINGS/IMPRESSION: Please refer to operative note for further details. Reviewed, dictated and finalized at location A.
--- OUTSIDE RECORDS SUMMARY | 2024-11-03 10:47 | XMS_ITS | Referral Summary ---
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 Gender Identity Not on file Sexual Orientation Not on file Last Filed Vital Signs Vital Sign Reading Time Taken Comments Blood Pressure 132/80 09/26/2017 9:48 AM CDT Pulse 71 09/26/2017 9:48 AM CDT Temperature - - Respiratory Rate 18 09/26/2017 9:48 AM CDT Oxygen Saturation 93% 08/13/2017 12:10 PM 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
--- OUTSIDE RECORDS SUMMARY | 2024-11-03 10:47 | XMS_ITS | Clinical Summary ---
Author Organization [facility] Address [address] [place] [address] Phone Care Team Providers Care Doctor Of Medicine Name Role Phone Gume Bermudez MD Primary Care Provider [phone] Social History Tobacco Use Types Packs/Day Years [...] Influenza Vaccine (Season Ended) 2025 Insurance MEDICARE [place] [id number] Care Teams Doctor Of Medicine Relationship Specialty Start Date End Date Gume Bermudez MD [address] [facility] [address] [facility] [address] [place] [id number] PCP - General Internal Medicine 01/15/22
--- OUTSIDE RECORDS SUMMARY | 2024-11-03 10:47 | XMS_ITS | Clinical Summary ---
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 Gender Identity Not on file Sexual Orientation Not on file Obstetrics History Last Filed Vital Signs Vital Sign Reading Time Taken Comments Blood Pressure 132/80 09/26/2017 9:48 AM CDT Pulse 71 09/26/2017 9:48 AM CDT Temperature - - Respiratory Rate 18 09/26/2017 9:48 AM CDT Oxygen Saturation 93% 08/13/2017 12:10 PM TOUR ACTOR Inhaled Oxygen Concentration - - Weight 61.7 kg (136 lb) 09/26/2017 9:48 AM CDT Height 157.5 cm (5' 2 ) 09/26/2017 9:48 AM CDT Body Mass Index 24.87 09/26/2017 9:48 AM CDT Plan of Treatment Health Maintenance Due Date Last Done Comments Depression Screening 1944 Hepatitis C Screening 1945 Osteoporosis Screening-Bone Density Scan 1944 DTaP/Tdap/Td Vaccine (1 - Tdap) 11/28/1955 Hepatitis B Screening 1962 Pneumococcal vaccine 65+ (1 of 2 - PCV) 11/28/1963 Zoster Vaccine (1 of 2) 1994 Well Visit 65+ 2009 Fall Risk Assessment 09/26/2018 09/26/2017 Influenza Vaccine (Season Ended) 2025 [facility] [id number] [place] [address] INSURANCE SANDRA Elias [id number] MEDICARE [place] INSURANCE MEDICARE Care Teams Restaurant Crew Relationship Specialty Start Date End Date Gume Bermudez MD [address] [facility] [address] INTERNAL MEDICINE [place], [place] [phone] PCP - General Internal Medicine 08/13/17
[2024-11-03 11:05] VITALS: BP 135/76; PULSE 72; RESP 18; TEMP 37.1; O2SAT 95
--- NOTE | 2024-11-03 11:51 | WPDHPUPDATE1 ---
History and Physical Update Update Date/Time: 11/03/24 11:51 History and Physical has been reviewed, including an updated exam of the patient. There are NO changes in the patient's condition. Risks, benefits, and alternatives have been discussed and questions answered. Patient agrees to proceed with procedure.
--- NOTE | 2024-11-03 11:52 | W.PM.PROC2 ---
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 (2 levels blocked). Surgeon Moody Mast MD V/Stol Landing Signal Officer None. Anesthesia Local Description of Procedure INFORMED CONSENT: Risks, benefits and alternatives to the procedure were discussed in detail with the patient who expressed explicit understanding and consent to proceed. Patient was informed verbally and in written form regarding the risks associated with the procedure including the low risk of serious infection, bleeding/bruising, allergic reaction, nerve or organ injury, paralysis, procedural site pain or discomfort, worsening pain and/or mobility, failure to treat and/or disfigurement. The patient expressed explicit understanding and consent to proceed. All materials required for the procedure were available prior to procedure start. Site and side were marked prior to procedure and confirmed in the presence of the patient. PROCEDURE IN DETAIL: The patient was brought to the procedural suite and placed in the prone position. Patient was made comfortable with use of pillows under the head/chest, hips and ankles. Skin overlying the injection site on the affected side(s) was prepared broadly with ChloraPrep applicator and draped in a sterile manner. Aseptic technique was used throughout. The endplates of the vertebral bodies at the site(s) of interest were aligned in the AP view. Ipsilateral oblique angulation was utilized to optimize visualization of the intersection between the superior articulating process and transverse process at each target site. Local anesthesia was established by infiltration with approximately 5 mL of 1% lidocaine via a 1-1/2 inch 27-gauge needle. A 25-gauge 3.5 inch Quincke spinal needle was advanced until the needle tip contacted periosteum at the target site, right L3. Lateral view was utilized to confirm the appropriate placement of the needle tip just anterior to the facet line and superior to the pedicle. In the Lateral view, 0.25 mL of Omnipaque 300 contrast medium was injected after negative aspiration for CSF, blood or other bodily fluid, showing appropriate extra-articular spread of contrast without evidence of intravascular, foraminal or intrathecal placement. A 0.5 mL solution of 2.0% PF lidocaine was injected after negative repeat aspiration. Appropriate spread of the injectate was confirmed with washout of previously injected contrast. No parasthesias were elicited. Needle was removed completely intact without difficulty. The same exact procedure was repeated for all remaining levels on the ipsilateral side, right L4, L5 medial branches/dorsal ramus, modified as necessary to accommodate for the new target location with identical findings and results and no evidence of complication. Images were saved and documented in the patient chart. Patient's skin was cleaned and sterile bandage applied. The patient tolerated the procedure well. The patient was transported to the recovery area in stable condition where they were observed for an appropriate amount of time prior to discharge, without evidence of complication. Patient was instructed on the appropriate completion of a pain diary over the next 12-24 hours. The patient was instructed to avoid excessive activity for the next 48 hours, including climbing and frequent use of stairs. Showers only for 48 hours. They were instructed not to drive or operate heavy machinery for 24 hours. They are to monitor for severe headaches, fevers, chills, night sweats, erythema/swelling at the site or any other signs of infection, bleeding/bruising, bowel or bladder changes as well as new pain, weakness or numbness in the upper or lower extremity. Should they notice these changes, they are instructed to call our office immediately or report directly to the nearest Emergency Department if no answer or if after posted office hours. COMPLICATIONS: None COMMENTS: None CONTRAST WASTED: 29.25mL Omnipaque 300. Complications No immediate complications Condition Stable Disposition Same day [facility] Billing Surgery - Charge Forward: Surgery Billing
[2024-11-03 12:22] VITALS: BP 131/75; PULSE 80; RESP 17; O2SAT 95
[2024-11-03] MEDS: LIDOCAINE 1% PF INJ 5 ML VIAL INFILTRATE (12:24)
[2024-11-03] MEDS: LIDOCAINE 2% PF LOCAL INJ 5 ML VIAL 3 ML INFILTRATE (12:25)
[2024-11-03 12:35] VITALS: BP 137/79; PULSE 68; RESP 15; O2SAT 99
== END 2024-11-03 12:45 | disposition home or self-care (01) ==
PROVIDERS: PCP Internal Medicine; Visit Provider Anesthesiology Pain Medicine
PROC: (CPT 64493; principal; 2024-11-03 11:35)
DX: M47.817 Spondylosis without myelopathy or radiculopathy, lumbosacral region (principal); G89.29 Other chronic pain
CPT/HCPCS: 64493; 64494; 99199

== ENCOUNTER 2024-11-08 15:41 | Emergency (ER) | payer MEDICARE, SELFPAY ==
--- NOTE | ~2024-11-08 | XR_ITS ---
EXAMINATION: XR chest 1V portable DATE: 11/08/2024 16:13 INDICATION: Chest pain TECHNIQUE: frontal view of the chest was obtained. COMPARISON: Chest radiograph dated 09/14/2024 FINDINGS: Unchanged mild streaky opacities at the bilateral lung bases consistent with minimal basilar atelecta sis/scarring. No new airspace opacities, pulmonary edema, pleural effusion or pneumothorax. The cardi omediastinal silhouette is normal. IMPRESSION: 1. Unchanged mild streaky bibasilar atelectasis/scarring. No other acute cardiopulmonary disease. Reviewed, dictated and finalized at location A. IMPRESSION: 1. Unchanged mild streaky bibasilar atelectasis/scarring. No other acute cardio pulmonary disease.
--- NOTE | ~2024-11-08 | CT_ITS ---
EXAMINATION: CTA chest PE abdomen pel DATE: 11/08/2024 17:02 INDICATION: Chest pain, back pain, recent lumbar fracture, abd TECHNIQUE: Computed tomography angiography (CTA) of the chest was performed with 100 mL Omnipaque-350 intravenous contrast timed to evaluate the pulmonary arteries, followed by portal venous phase imagi ng of the abdomen and pelvis. Coronal maximum intensity projection 3D-reconstructions were created by the technologist. The dose-length product (DLP) was 405.78 mGy-cm. Automated exposure control and it erative reconstruction technique were employed. COMPARISON: CT chest 01/22/2024; CT abdomen pelvis 02/20/2022; fluoroscopy during kyphoplasty 09/15/2024. FINDINGS: CHEST: Lung parenchyma and airways: Mild emphysematous change. Mild bibasilar scar/atelectasis. Tiny focus o f anterior lingular honeycombing. Patent airways. Pleura: Unremarkable. Thoracic inlet, axillae and chest wall: No thyroid or soft tissue mass. Thoracic aorta: Mild ectasia of the descending thoracic aorta, measuring up to 3.4 cm. No dissection. Mild atherosclerotic calcification. Mediastinum: Dilated central pulmonary arteries as can be seen with pulmonary hypertension. Heart and pericardium: Mitral annulus and aortic valve calcification. Coronary artery calcifications: Mild. Thoracic bones: No acute osseous finding. Pulmonary arteries: Study quality: Adequate. No pulmonary emboli detected. ABDOMEN/PELVIS: Liver: Normal. Biliary/Gallbladder: Gallbladder is absent. Marked intra and extrahepatic bile duct dilation. Pancreas: Dilated main pancreatic duct. No mass. Spleen: Normal. Adrenals:No mass. Kidneys: No suspicious mass, obstructing stone, or hydronephrosis. Multiple bilateral simple renal cy sts, measuring up to 9.7 cm in the left lower pole. GI tract: Mild distal esophageal and gastric wall edema of the gastric fundus and body. Marked edema of the gastric pylorus and first portion of the duodenum, where an intact 1.9 x 1.4 cm ulcer is noted in the duodenal bulb. No small or large bowel dilation. Normal appendix. Mesentery/Peritoneum: No ascites, mass, or free air. Retroperitoneum: No mass. Pelvis: Detail obscured by metal artifact. Distended urinary bladder without wall thickening. Normal appearing uterus. Bilateral ovaries not confidently identified. Soft Tissues: Soft tissues and body wall unremarkable. Abdominopelvic bones: Moderate burst fracture at L1, with 8 mm retropulsion, causing mild central ca nal stenosis. Status post L2 kyphoplasty, stable. Multiple additional mild compression deformity is a re present. Uncomplicated appearing partially visualized right hip arthroplasty hardware IMPRESSION: No CT evidence of acute pulmonary embolus. No acute intrathoracic process detected. Large ulcer in the duodenal bulb with marked surrounding inflammatory change. No definite evidence of perforation at this time. Intra-/extrahepatic biliary duct dilation and pancreatic duct dilation, without a visible stone or ma ss. These findings may be related to reactive inflammation from the adjacent duodenal ulcer, however other causes such an occult mass or stone are not excluded. Correlate with biliary and pancreatic lab s. Consider MRCP. Moderate burst fracture at L1, with 8 mm retropulsion, new since the most recent comparison study. Reviewed, dictated and finalized at location K. IMPRESSION: No CT evidence of acute pulmonary embolus. No acute intrathoracic process detected. Large ulcer in the duodenal bulb with marked surrounding inflammatory change. N o definite evidence of perforation at this time. Intra-/extrahepatic biliary duct dilation and pancreatic duct dilation, without a visible stone or mass. These findings may be related to reactive inflammatio n from the adjacent duodenal ulcer, however other causes such an occult mass or stone are not excluded. Correlate with biliary and pancreatic labs. Consider M METAL HANGING SUPERVISOR. Moderate burst fracture at L1, with 8 mm retropulsion, new since the most recen t comparison study.
[2024-11-08 15:52] VITALS: BP 146/82; PULSE 80; RESP 16; TEMP 36.6; O2SAT 98
--- NOTE | 2024-11-08 15:57 | ECG_ITS ---
Test Date: 2024-11-08 15:59:36 Measurements Intervals [place] Rate: 71 P: 18 MD: 143 QRS: -36 QRSD: 106 T: 7 QT: 383 QTc: 417 Interpretive Statements SINUS RHYTHM WITH MARKED SINUS ARRHYTHMIA LEFT AXIS DEVIATION DELAYED PRECORDIAL R/S TRANSITION MINIMAL Q WAVES- HIGH LATERAL LEADS BORDERLINE ECG Compared to ECG 09/14/2024 13:03:42 NO SIGNIFICANT CHANGE Electronically Signed On 11-08-2024 19:14:49 CDT by Jase Gaytan D.O.
[2024-11-08 16:00] VITALS: PULSE 80
[2024-11-08 16:22] LABS: Basophils Percent Auto 0.1 % (0.2-1.2); Hematocrit 39.9 % (37.0-47.0); Hemoglobin 12.8 g/dL (12.0-15.0); Immature Granulocyte Absolute 0.07 K/mm3 (0.00-0.031); Immature Granulocyte Percent A 0.7 % (0-0.5); Lymphocytes Absolute Auto 1.84 K/mm3 (0.9-3.2); Lymphocytes Percent Auto 17.3 % (18.3-44.2); Mean Corpuscular HGB Conc 32.1 g/dl (32-36); Mean Corpuscular Hemoglobin 32.7 pg (26-34); Mean Platelet Volume 8.7 fl (7.4-10.4); Monocytes Absolute Auto 0.9 K/mm3 (0.1-0.6); Neutrophils Absolute Auto 7.9 K/mm3 (1.3-6.7); Neutrophils Percent Auto 73.9 % (45.5-73.1); Platelet Count Result 403 k/mm3 (150-375); Red Blood Count 3.91 M/mm3 (4.2-5.4); White Blood Count 10.6 K/mm3 (4.5-10.0)
--- NOTE | 2024-11-08 16:29 | ED.GENADULT ---
HPI - General Adult General Chief complaint: Chest Pain Stated complaint: heart pain, abd pain Time Seen by Provider: 11/08/24 16:07 History of Present Illness HPI narrative: Patient 78-year-old female who presents emergency department with chief complaint of chest pain. Patient reports she has history of angina reports that she also has had a lumbar compression fracture and has been treated by pain management the patient reports that she has also noticed that she started having abdominal pain or her abdomen has been distended patient states she took 3 nitroglycerin at the same time today that resolved her chest pain patient states that she has pain in her back as well with this patient reports no vomiting denies diarrhea reports that she is passing gas and has had a bowel movement the last 24 hours. Related Data Home Medications ?Medication ?Instructions ?Recorded ?Confirmed ?Last Taken ?Type magnesium citrate (OneLAX 150 ml PO DAILY 10/29/24 11/05/24 Unknown History Magnesium Citrate oral solution) Allergies Allergy/AdvReac Type Severity Reaction Status Date / Time No Known Allergies Allergy Verified 11/05/24 09:14 Review of Systems Review of Systems: A 10 system review of systems was completed on the patient and is negative except for what is stated in the HPI. Nursing and ancillary documentation was reviewed. 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 Code status: Full code. Smoking packs per day: 1 Smoking cigarettes per day: 20.0 Years smoked: 30 Smoking pack-years: 30.00 Smoking status: Current every day smoker Tobacco type: cigarettes Alcohol intake: never Substance use: never Substance use type: does not use Current Housing: Decline to Answer Concerned About Future Housing: Decline to Answer Difficulty Paying Gas/Electric Bills: Decline to Answer Difficulty Paying for Meds: Decline to Answer Currently Unemployed: Decline to Answer Education: Decline to Answer Difficulty w/ Childcare or Family Care: Decline to Answer Living arrangements: alone Spiritual care concerns: No Exam Narrative: GENERAL: Well-appearing, well-nourished, and in no acute distress. HEAD: Normocephalic, atraumatic. EYES: PERRLA and EOMI. ENT: Nares clear, no rhinorrhea or epistaxis. Mucous membranes moist. NECK: Supple. CHEST: Clear to auscultation. No respiratory distress. HEART: Regular rate and rhythm. No murmur heard. Normal peripheral pulses. ABDOMEN: Soft, nontender, nondistended, normal active bowel sounds. EXTREMITIES: Normal range of motion. No edema. SKIN: Warm, dry, no rash. NEURO: No focal deficits. Alert and oriented x3. PSYCH: Normal mood and affect. Course Vital Signs Vital signs: Vital Signs Temperature 36.6 C 11/08/24 15:52 Pulse Rate 80 11/08/24 15:52 Respiratory Rate 16 11/08/24 15:52 Blood Pressure 146/82 H 11/08/24 15:52 Pulse Oximetry 98 11/08/24 15:52 Oxygen Delivery Room Air 11/08/24 15:52 Temperature 36.6 C 11/08/24 15:52 Pulse Rate 80 11/08/24 16:42 Respiratory Rate 17 11/08/24 16:42 Blood Pressure 137/79 11/08/24 16:42 Pulse Oximetry 96 11/08/24 16:42 Oxygen Delivery Room Air 11/08/24 15:52 Medical Decision Making Vital Signs Vital Signs: Vital Signs Temperature 36.6 C 11/08/24 15:52 Pulse Rate 80 11/08/24 15:52 Respiratory Rate 16 11/08/24 15:52 Blood Pressure 146/82 H 11/08/24 15:52 Pulse Oximetry 98 11/08/24 15:52 Oxygen Delivery Room Air 11/08/24 15:52 Temperature 36.6 C 11/08/24 15:52 Pulse Rate 80 11/08/24 16:42 Respiratory Rate 17 11/08/24 16:42 Blood Pressure 137/79 11/08/24 16:42 Pulse Oximetry 96 11/08/24 16:42 Oxygen Delivery Room Air 11/08/24 15:52 Lab Data 11/08/24 16:15 11/08/24 16:15 Labs: Lab Results 11/08/24 Range/Units 16:15 WBC 10.6 H (4.5-10.0) K/mm3 RBC 3.91 L (4.2-5.4) M/mm3 Hgb 12.8 (12.0-15.0) g/dL Hct 39.9 (37.0-47.0) % MCV 102.0 H (80-100) fl MCH 32.7 (26-34) pg MCHC 32.1 (32-36) g/dl RDW 17.0 H (11.5-14.5) % Plt Count 403 H (150-375) k/mm3 MPV 8.7 (7.4-10.4) fl Immature Gran % (Auto) 0.7 H (0-0.5) % Neut % (Auto) 73.9 H (45.5-73.1) % Lymph % (Auto) 17.3 L (18.3-44.2) % Thurston % (Auto) 8.0 (2.6-8.5) % Eos % (Auto) 0.0 (0-4.4) % Baso % (Auto) 0.1 L (0.2-1.2) % Lymph # (Auto) 1.84 (0.9-3.2) K/mm3 Thurston # (Auto) 0.9 H (0.1-0.6) K/mm3 Eos # (Auto) 0.0 (0-0.3) K/mm3 Baso # (Auto) 0.0 (0.0-0.1) K/mm3 Abs Immat Gran (auto) 0.07 H (0.00-0.031) K/mm3 Absolute Neuts (auto) 7.9 H (1.3-6.7) K/mm3 Absolute Nucleated RBC 0.000 (0.0-0.012) K/mm3 Nucleated RBC % 0.0 (0.0-0.2) % PT 12.3 (11.1-14.7) Seconds INR 0.9 APTT 27.6 (22.3-36.8) Seconds Sodium 139 (137-145) mmol/L Potassium 3.6 (3.4-5.0) mmol/L Chloride 107 (98-107) mmol/L Carbon Dioxide 29 (22-30) mmol/L Anion Gap 3 L (4-12) mmol/L BUN 17 (7-17) mg/dL Creatinine 0.67 L (0.7-1.0) mg/dL Estim Creat Clear Calc 46 ml/min Estimated GFR > 60 (59 - ) Glucose 91 (65-110) mg/dL Calcium 9.1 (8.4-10.2) mg/dL Total Bilirubin 0.5 (0.2-1.3) mg/dL AST 30 (14-36) U/L ALT 17 (6-35) U/L Alkaline Phosphatase 79 (38-126) U/L Troponin I < 0.012 (0.000-0.034) ng/mL Total Protein 6.0 L (6.3-8.2) g/dL Albumin 3.4 L (3.5-5.1) g/dL Lipase 60 (23-300) U/L Discharge Plan Discharge Clinical Impression: Atypical chest pain, Closed compression fracture of L1 vertebra Patient Disposition: Home Condition: Stable Instructions: Antibiotic Form, Chest Pain (ED), Vertebral Compression Fracture (ED) Patient Language: Vietnamese Prescriptions: New hydrocodone-acetaminophen 5-325 mg tablet 1 tablet PO Q6H PRN (Reason: pain) 3 Days Qty: 12 0RF No Action magnesium citrate [OneLAX Magnesium Citrate] Solution 150 ml PO DAILY prednisone 10 mg tablet 10 mg PO BID 10 Days Qty: 20 0RF hydrocodone-acetaminophen 5-325 mg tablet 1 tablet PO Q4H PRN (Reason: pain) Qty: 10 0RF Follow-up/Referrals: Gume Bermudez MD [Primary Care Provider] - Julius Brantley MD [Physician] - Time of Disposition: 18:53
[2024-11-08 16:32] LABS: Alanine Aminotransferase 17 U/L (6-35); Albumin Level 3.4 g/dL (3.5-5.1); Alkaline Phosphatase 79 U/L (38-126); Anion Gap 3 mmol/L (4-12); Aspartate Amino Transferase 30 U/L (14-36); Bilirubin,Total 0.5 mg/dL (0.2-1.3); Blood Urea Nitrogen 17 mg/dL (7-17); Calcium 9.1 mg/dL (8.4-10.2); Carbon Dioxide 29 mmol/L (22-30); Chloride 107 mmol/L (98-107); Estimated CRCL calculation 46 ml/min; Estimated Glomerular Filt Rate > 60; Glucose 91 mg/dL (65-110); Lipase 60 U/L (23-300); Potassium 3.6 mmol/L (3.4-5.0); Sodium 139 mmol/L (137-145)
[2024-11-08 16:37] LABS: INR 0.9; Prothrombin Time 12.3 Seconds (11.1-14.7)
[2024-11-08 16:38] LABS: Partial Thromboplastin Time 27.6 Seconds (22.3-36.8)
[2024-11-08] MEDS: MORPHINE SULFATE (*CRX) 4 MG/ML INJ 2 MG IV PUSH (16:41)
[2024-11-08 16:42] VITALS: BP 137/79; PULSE 80; RESP 17; O2SAT 96
[2024-11-08 16:44] LABS: Troponin I < 0.012 ng/mL (0.000-0.034)
--- NOTE | 2024-11-08 18:00 | PC.NURSE ---
Patient removing all monitors and requesting to be discharged from the hosptial. patient walking around without difficulty and in no distress. patient declines to have any monitors placed back on.
--- OUTSIDE RECORDS SUMMARY | 2024-11-08 18:17 | XMS_ITS | Clinical Summary ---
Author Organization [facility] Address [address] [place] [phone] Phone Care Team Providers Care [employer] Dental Lab Technician Name Role Phone Gume Bermudez MD Primary Care Provider [phone] Social History Tobacco Use Types Packs/Day Years [...] Influenza Vaccine (Season Ended) 2025 Insurance MEDICARE [place] [id number] Care Teams [employer] Dental Lab Technician Relationship Specialty Start Date End Date Gume Bermudez MD [address] [facility] [address] [facility] [address] [place] [phone] PCP - General Internal Medicine 01/15/22
== END 2024-11-08 19:26 | disposition home or self-care (01) ==
PROVIDERS: Emergency Provider Emergency Medicine; PCP Internal Medicine
DX: S32.010A Wedge compression fracture of first lumbar vertebra, initial encounter for closed fracture (principal); R07.9 Chest pain, unspecified; F17.210 Nicotine dependence, cigarettes, uncomplicated; F41.9 Anxiety disorder, unspecified; F32.A Depression, unspecified; M19.90 Unspecified osteoarthritis, unspecified site; K21.9 Gastro-esophageal reflux disease without esophagitis; E78.5 Hyperlipidemia, unspecified; I49.9 Cardiac arrhythmia, unspecified; G89.29 Other chronic pain; X58.XXXA Exposure to other specified factors, initial encounter
CPT/HCPCS: 36415; 71045; 71275; 74177; 80053; 83690; 84484; 85025; 85610; 85730; 93005; 96374; 99284; J2270; Q9967

== ENCOUNTER 2024-11-16 09:01 | Emergency (ER) | payer MEDICARE, SELFPAY ==
--- NOTE | ~2024-11-16 | XR_ITS ---
AP view of the pelvis and AP and lateral views of the right hip Clinical history: Pain Findings: No acute fracture or dislocation is seen. Right hip arthroplasty in place. There is minimal degenerative change of the left hip joint.. Soft tissues are unremarkable. Impression: No acute abnormality. Right hip arthroplasty. Minimal degenerative change of the left hip joint. Reviewed, dictated and finalized at location . Impression: No acute abnormality. Right hip arthroplasty. Minimal degenerative change of the left hip joint.
--- NOTE | ~2024-11-16 | MR_ITS ---
EXAMINATION: MR thoracic spine wo/w con, MR lumbar spine wo/w con DATE: 11/16/2024 14:15 INDICATION: Acute burst fractures in the lower thoracic and upper lumbar spine TECHNIQUE: 1. Magnetic resonance imaging (MRI) of the thoracic spine was performed without and with 10 mL ProHan ce intravenous contrast. Sagittal localizer T1-weighted FSE of the cervicothoracic spine was obtained . Sequences included sagittal T2-weighted FSE, sagittal T2-weighted FS FSE, sagittal T1-weighted FSE and axial T1-weighted SE. Postcontrast sequences included axial T2-weighted FSE, sagittal T1-weighted FS FSE, and axial T1-weighted FS SE. 2. MRI of the lumbar spine was performed without and with the same 10 mL bolus of ProHance intravenou s contrast. Sequences included sagittal T2-weighted FSE, sagittal T2-weighted FS FSE, and sagittal an d axial T1-weighted FSE. Postcontrast sequences included axial T2-weighted FSE, sagittal T1-weighted FSE, and axial and sagittal T1-weighted FS FSE. COMPARISON: CT lumbar spine dated 11/26/2024, CT chest, abdomen and pelvis dated 11/08/2024 and lumbar s pine MR dated 08/12/2024 FINDINGS: THORACIC SPINE MRI: Alignment is normal. There is a recent T11 burst fracture with 20% central vertebral body height loss and 2 mm retropulsion which appears to occurred in the interval between 08/12/[address] dated 11/09/19 25. There is secondary prominent associated reactive marrow edema and enhancement within the vertebra l body which demonstrated normal marrow signal on the recent prior MRI.. Remaining thoracic vertebral body heights are normal. There are couple T1 and T2 hyperintense hemangiomas in the T7 vertebral bod y. Bone marrow signal is otherwise unremarkable. There is mild disc height loss at T9-T10. There is s ubtle widening of the T10-T11 disc space resulting from the depression of the superior endplate of T1 1. Small right paracentral disc protrusion without significant central canal stenosis at T9-T10. Ther e is mild central canal stenosis at T10-T11 resulting from the minimal retropulsion and inward bulgin g of the posterior epidural fat likely resulting from the mild vertebral body height loss. There is n ormal marrow signal throughout the cord with no abnormally enhancing lesions identified. There is mul tilevel thoracic facet osteoarthritis, severe at multiple levels in the upper thoracic spine and mild to moderate in the lower thoracic spine. There is multilevel bilateral neural foraminal stenosis, mi ld at majority of the neural foramina from T1-T2 through T6-T7 as well as mild on the left and modera te on the right at T10-T11. There is paravertebral edema and non masslike enhancement surrounding the T11 compression fracture. LUMBAR SPINE MRI: There is an additional recent L1 burst fracture similarly new in the interval between 11/08/2024 and 08/12/2024 with associated marrow enhancement and edema and surrounding soft tissue edema. The vertebral body similarly. Normal on the MRI from 08/12/2024. There is approximately 80% anterior to central verte bral body height loss. There is a 6 mm retropulsion. Subacute L2 burst fracture with marrow edema penny rounding a low signal intensity methylmethacrylate for vertebroplasty within the L2 vertebral body wh ich is new since 08/12/2024. There is 40% central vertebral body height loss and 5 mm retropulsion. No interval change in chronic L4 and L5 burst fractures with 40% and 20% anterior to central vertebral b marco height loss respectively and with minimal retropulsion. Moderate disc height loss at L5-S1 and mi ld disc height loss at L4-L5. The conus nodularis is at L1. Aside from some enhancement at the L1 and L2 burst fractures there are no abnormal enhancing lesions. Multiple bilateral renal cysts The follo wing disc levels are specifically discussed: T11-T12: Small central disc protrusion.. There is mild left and moderate right facet joint osteoarthr itis .There is no neural foraminal stenosis. There is no central canal stenosis. T12-L1: The disc does not extend beyond the retropulsed posterior superior endplate margin of L1. The re is moderate left and severe right facet joint osteoarthritis. There is moderate left and moderate to severe right neural foraminal stenosis. There is moderate central canal stenosis measuring 8 mm AP in the mid sagittal plane. L1-L2: The disc does not extend beyond the retropulsed posterior-superior endplate margin of L2. Ther e is severe bilateral facet joint osteoarthritis. There is mild right and moderate left neural forami nal stenosis. There is mild to moderate central canal stenosis measuring 7 mm AP in the mid sagittal plane. L2-L3: Disc is bulging. There is hypertrophy of the ligamentum flavum. There is severe bilateral face t joint osteoarthritis. There is mild bilateral neural foraminal stenosis. There is mild to moderate central canal stenosis. L3-L4: Disc is bulging and there is mild retropulsion at the superior posterior endplate of L4. There is bilateral facet joint osteoarthritis. There is mild to moderate bilateral neural foraminal stenos is. There is mild central canal stenosis. L4-L5: Disc is bulging. There is hypertrophy of the ligamentum flavum. There is severe bilateral fac et joint osteoarthritis. There is moderate bilateral neural foraminal stenosis. There is mild central canal stenosis. L5-S1: Disc is bulging. There is moderate bilateral facet joint osteoarthritis. There is mild left an d moderate right neural foraminal stenosis. There is minimal central canal stenosis. IMPRESSION: 1. Recent burst fractures at T11 and L1. 2. Mild thoracic and moderate lumbar spondylosis most notable for moderate central canal stenosis at T12-L1 and L1-L2 resulting from the retropulsion associated with the new L1 burst fracture and of the subacute L2 burst fracture post relatively recent vertebroplasty. Reviewed, dictated and finalized at location A. IMPRESSION: 1. Recent burst fractures at T11 and L1. 2. Mild thoracic and moderate lumbar spondylosis most notable for moderate cent ral canal stenosis at T12-L1 and L1-L2 resulting from the retropulsion associat ed with the new L1 burst fracture and of the subacute L2 burst fracture post re latively recent vertebroplasty.
--- NOTE | ~2024-11-16 | CT_ITS ---
EXAMINATION: CT lumbar spine wo con DATE: 11/16/2024 10:23 INDICATION: Pain. Sudden right leg pain. TECHNIQUE: Computed tomography (CT) of the lumbar spine was performed without intravenous contrast. A utomated exposure control and iterative reconstruction technique were employed. The dose-length produ ct was 473.83 mGy-cm. COMPARISON: Lumbar spine MR dated 08/12/2024 FINDINGS: Alignment is normal. No change in chronic L4 burst fracture with 40% anterior to central vertebral siobhan dy height loss. 3 mm retropulsion and L5 burst fracture with 20% central vertebral body height loss a nd 2 mm retropulsion. Progression of now 40% central vertebral body height loss and 5 mm retropulsion at and L2 burst fracture with interval vertebroplasty. Acute-appearing L1 burst fracture with 80% ce ntral vertebral body height loss, vacuum phenomenon along the fracture plane and 6 mm retropulsion. A dditional vacuum phenomena seen along a second acute T11 compression fracture plane underlying the sood perior endplate and with 20% anterior to central vertebral body height loss. Moderate disc height los s at L5-S1 and mild disc height loss at L3-L4 and L4-L5. There is widening of the disc spaces at T12- L1 and L1-L2 resulting from the adjacent burst fractures. Finally there subacute appearing fractures at the medial aspect of the bilateral 11th and 12th ribs. 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 Ectatic proximal abdominal aorta measuring 3.6 cm diameter at the thoracic hiatus. Bilater al renal cysts the largest, incompletely visualized measuring at least 8 cm at the lower left kidney. There is also a 1.1 cm hyperdense proteinaceous/hemorrhagic cyst at the upper pole of the right kidn ey. The following disc levels are specifically discussed: T11-T12: Small central disc protrusion. There is mild bilateral facet joint osteoarthritis. There is no neural foraminal stenosis. There is no central canal stenosis. T12-L1: The disc does not extend beyond the retropulsed posterior endplate margin of L1. There is mod erate left and severe right facet joint osteoarthritis. There is mild bilateral neural foraminal sten osis. There is moderate central canal stenosis. L1-L2: The disc does not extend beyond the retropulsed posterior endplate margin of L2. There is left and severe right facet joint osteoarthritis. There is mild bilateral neural foraminal stenosis. Ther e is moderate central canal stenosis. L2-L3: Disc is bulging. There is severe bilateral facet joint osteoarthritis. There is mild left and mild to moderate right neural foraminal stenosis. There is mild to moderate central canal stenosis. L3-L4: Disc is mildly bulging beyond the retropulsed posterior endplate margin of L4. There is irregu lar bilateral facet joint osteoarthritis. There is moderate bilateral neural foraminal stenosis. Ther e is mild central canal stenosis. L4-L5: Disc is mildly bulging beyond the retropulsed posterior endplate margin of L5. There is modera te left and severe right facet joint osteoarthritis. There is are bilateral neural foraminal stenosis . There is mild central canal stenosis. L5-S1: Disc is bulging. There is are bilateral facet joint osteoarthritis. There is mild left and mod erate right neural foraminal stenosis. There is minimal central canal stenosis. IMPRESSION: 1. Acute burst fractures at T11 and L1. 2. Moderate lumbar spondylosis with new moderate central canal at both T12-L1 and L1-L2 resulting fro m the retropulsion associated with the new L1 burst fracture and of a subacute L2 burst fracture with interval vertebroplasty. 3. Ectatic proximal abdominal aorta measuring up to 3.6 cm. Reviewed, dictated and finalized at location A. IMPRESSION: 1. Acute burst fractures at T11 and L1. 2. Moderate lumbar spondylosis with new moderate central canal at both T12-L1 a nd L1-L2 resulting from the retropulsion associated with the new L1 burst fract ure and of a subacute L2 burst fracture with interval vertebroplasty. 3. Ectatic proximal abdominal aorta measuring up to 3.6 cm.
[2024-11-16 09:06] VITALS: BP 118/77; PULSE 93; RESP 18; TEMP 36.6; O2SAT 97
--- NOTE | 2024-11-16 10:10 | ED_ITS ---
HPI - Extremity Problem General Chief complaint: Extremity Problem,Nontraumatic Stated complaint: R hip pain Time Seen by Provider: 11/16/24 09:09 History of Present Illness HPI Narrative: Patient is a 78-year-old female who presents to the with complaints of right hip pain and weakness. She reports last night she was in the back and was unable to get out due to sudden right hip pain. This morning when patient was lying in bed she was unable to get out of bed due to intense pain. Patient endorses a history of right hip replacement 25 years ago, knee replacement, and 2 broken vertebrae. She reports 2 days ago she had a sudden loss of continence. Patient denies any numbness and tingling in her lower extremities, urinary symptoms, or altered mental status. Related Data Home Medications ?Medication ?Instructions ?Recorded ?Confirmed ?Last Taken ?Type magnesium citrate (OneLAX 150 ml PO DAILY 10/29/24 11/10/24 Unknown History Magnesium Citrate oral solution) Allergies Allergy/AdvReac Type Severity Reaction Status Date / Time No Known Allergies Allergy Verified 11/16/24 09:14 Review of Systems 2 Review of Systems: All systems reviewed & are unremarkable except as noted in HPI and below PMFSH Past Medical History Medical History BMI 23.0-23.9, adult Depression Arthritis Gastroesophageal reflux disease Degenerative joint disease Arteriosclerotic heart disease Chronic pain of left heel Cognitive changes Chronic fatigue Prediabetes Vitamin D deficiency Shingles Chest wall pain Tobacco abuse Anxiety and depression Hyperlipidemia Hearing loss 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 Code status: Full code. Smoking packs per day: 1 Smoking cigarettes per day: 20.0 Years smoked: 30 Smoking pack-years: 30.00 Smoking status: Current every day smoker Tobacco type: cigarettes Alcohol intake: never Substance use: never Substance use type: does not use Current Housing: Decline to Answer Concerned About Future Housing: Decline to Answer Difficulty Paying Gas/Electric Bills: Decline to Answer Difficulty Paying for Meds: Decline to Answer Currently Unemployed: Decline to Answer Education: Decline to Answer Difficulty w/ Childcare or Family Care: Decline to Answer Living arrangements: alone Spiritual care concerns: No Exam 2 Narrative: GENERAL: Well appearing, well-nourished, non-toxic, in mild distress d/t pain. HEAD: Normocephalic, atraumatic. NECK: Supple. No adenopathy, no masses. No tenderness with palpation RESPIRATORY: Airway patent, respirations nonlabored. Clear to auscultation bilaterally, no rales, rhonchi, wheezing. CARDIOVASCULAR: Regular rate and rhythm without murmurs, rubs, or gallops. Peripheral pulses 2+ and equal bilaterally. ABDOMINAL: Soft, nontender, nondistended, no hepatosplenomegaly. Normoactive BS. MUSCULOSKELETAL: Moves all extremities. Inability to raise right leg off bed due to pain SKIN: Warm, dry, normal color. No rashes. NEURO: A&O X3. Speech clear. Cranial nerves II through X intact. No ataxic movements. Weakness RLE d/t pain PSYCHIATRIC: Appropriate mood and affect. Normal interaction. Course Vital Signs Vital signs: Vital Signs Temperature 97.9 F 11/16/24 09:06 Pulse Rate 93 11/16/24 09:06 Respiratory Rate 18 11/16/24 09:06 Blood Pressure 118/77 11/16/24 09:06 Pulse Oximetry 97 11/16/24 09:06 Oxygen Delivery Room Air 11/16/24 09:06 Temperature 97.9 F 11/16/24 09:06 Pulse Rate 69 11/16/24 15:00 Respiratory Rate 19 11/16/24 15:00 Blood Pressure 126/79 11/16/24 15:00 Pulse Oximetry 100 11/16/24 15:00 Oxygen Delivery Room Air 11/16/24 09:06 MDM - Extremity (Nontraumatic) MDM Narrative Medical decision making narrative: Patient is a 78-year-old female who presents to the with complaints of right hip pain and weakness. She reports last night she was in the back and was unable to get out due to sudden right hip pain. This morning when patient was lying in bed she was unable to get out of bed due to intense pain. Patient endorses a history of right hip replacement 25 years ago, knee replacement, and 2 broken vertebrae. She reports 2 days ago she had a sudden loss of continence. Patient denies any numbness and tingling in her lower extremities, urinary symptoms, or altered mental status. Labs Ordered: CBC, CMP, UA Imaging Ordered: CT lumbar spine, MRI thoracic spine, right hip pain with AP pelvis Medications Ordered: [place] p.o., morphine 4 mg IV Results: Pt's MRI indicates THORACIC SPINE MRI: Alignment is normal. There is a recent T11 burst fracture with 20% central vertebral body height loss and 2 mm retropulsion which appears to occurred in the interval between 08/12/[address] dated 11/08/2024. There is secondary prominent associated reactive marrow edema and enhancement within the vertebral body which demonstrated normal marrow signal on the recent prior MRI.. Remaining thoracic vertebral body heights are normal. There are couple T1 and T2 hyperintense hemangiomas in the T7 vertebral body. Bone marrow signal is otherwise unremarkable. There is mild disc height loss at T9-T10. There is subtle widening of the T10-T11 disc space resulting from the depression of the superior endplate of T11. Small right paracentral disc protrusion without significant central canal stenosis at T9-T10. There is mild central canal stenosis at T10-T11 resulting from the minimal retropulsion and inward bulging of the posterior epidural fat likely resulting from the mild vertebral body height loss. There is normal marrow signal throughout the cord with no abnormally enhancing lesions identified. There is multilevel thoracic facet osteoarthritis, severe at multiple levels in the upper thoracic spine and mild to moderate in the lower thoracic spine. There is multilevel bilateral neural foraminal stenosis, mild at majority of the neural foramina from T1-T2 through T6-T7 as well as mild on the left and moderate on the right at T10-T11. There is paravertebral edema and non masslike enhancement surrounding the T11 compression fracture. LUMBAR SPINE MRI: There is an additional recent L1 burst fracture similarly new in the interval between 11/08/2024 and 08/12/2024 with associated marrow enhancement and edema and surrounding soft tissue edema. The vertebral body similarly. Normal on the MRI from 08/12/2024. There is approximately 80% anterior to central vertebral body height loss. There is a 6 mm retropulsion. Subacute L2 burst fracture with marrow edema surrounding a low signal intensity methylmethacrylate for vertebroplasty within the L2 vertebral body which is new since 08/12/2024. There is 40% central vertebral body height loss and 5 mm retropulsion. No interval change in chronic L4 and L5 burst fractures with 40% and 20% anterior to central vertebral body height loss respectively and with minimal retropulsion. Moderate disc height loss at L5-S1 and mild disc height loss at L4-L5. The conus nodularis is at L1. Aside from some enhancement at the L1 and L2 burst fractures there are no abnormal enhancing lesions. Multiple bilateral renal cysts The following disc levels are specifically discussed: Diagnosis: T11 burst fracture, L 1 burst fracture Consults: Spoke with neurosurgery, Dr. Rogers, who advised pt get a stat MRI. Spoke with radiologist, Dr. Reeder, who was in agreement with plan for stat MRI. Patient Education/Shared MDM: Results of imaging shared with pt. Patient has chosen to refuse further care. Risks of an incomplete evaluation and treatment were discussed with the patient, including potential for or permanent disability. Patient seems to understand these risks, but still desires to refuse further care. Patient recommended to follow up with PCP in the next possible interval. Specifically, patient was told they can return to the ED at any time to resume care. Differential Diagnosis Differential diagnosis: Likely other (Lumbar fracture, hip fracture, lumbar radiculopathy, cauda equina) Lab Data 11/16/24 14:29 11/16/24 14:28 Labs: Lab Results 11/16/24 11/16/24 Range/Units 14:28 14:29 WBC 6.7 (4.5-10.0) K/mm3 RBC 4.32 (4.2-5.4) M/mm3 Hgb 14.2 (12.0-15.0) g/dL Hct 44.6 (37.0-47.0) % MCV 103.2 H (80-100) fl MCH 32.9 (26-34) pg MCHC 31.8 L (32-36) g/dl RDW 16.4 H (11.5-14.5) % Plt Count 465 H (150-375) k/mm3 MPV 9.0 (7.4-10.4) fl Immature Gran % (Auto) 0.7 H (0-0.5) % Neut % (Auto) 63.9 (45.5-73.1) % Lymph % (Auto) 27.0 (18.3-44.2) % [place] % (Auto) 7.0 (2.6-8.5) % Eos % (Auto) 0.7 (0-4.4) % Baso % (Auto) 0.7 (0.2-1.2) % Lymph # (Auto) 1.81 (0.9-3.2) K/mm3 [place] # (Auto) 0.5 (0.1-0.6) K/mm3 Eos # (Auto) 0.1 (0-0.3) K/mm3 Baso # (Auto) 0.1 (0.0-0.1) K/mm3 Abs Immat Gran (auto) 0.05 H (0.00-0.031) K/mm3 Absolute Neuts (auto) 4.3 (1.3-6.7) K/mm3 Absolute Nucleated RBC 0.000 (0.0-0.012) K/mm3 Nucleated RBC % 0.0 (0.0-0.2) % Sodium 138 (137-145) mmol/L Potassium 3.7 (3.4-5.0) mmol/L Chloride 109 H (98-107) mmol/L Carbon Dioxide 27 (22-30) mmol/L Anion Gap 2 L (4-12) mmol/L BUN 11 D (7-17) mg/dL Creatinine 0.72 (0.7-1.0) mg/dL Estim Creat Clear Calc 43 ml/min Estimated GFR > 60 (59 - ) Glucose 80 (65-110) mg/dL Calcium 8.3 L (8.4-10.2) mg/dL Total Bilirubin 0.4 (0.2-1.3) mg/dL AST 38 H (14-36) U/L ALT 21 (6-35) U/L Alkaline Phosphatase 136 H (38-126) U/L Total Protein 6.5 (6.3-8.2) g/dL Albumin 3.4 L (3.5-5.1) g/dL Urine Color Yellow (Yellow) Urine Appearance Clear (Clear) Urine pH 7.5 (5.0-9.0) Ur Specific [place] 1.011 (1.001-1.035) Urine Protein 1+ H (Negative) mg/dL Urine Glucose (UA) Negative (Negative) mg/dL Urine Ketones Negative (Negative) mg/dL Ur Blood (Man) Trace (Negative) Urine Nitrate Negative (Negative) Urine Bilirubin Negative (Negative) Urine Urobilinogen 0.2 (<2.0) mg/dL Leukocyte Esterase Rfl Negative (Negative) RY/UL Urine RBC 6-10 H (0-2) /hpf Urine WBC 0-5 (0-3) /hpf Ur Squamous Epith Cells None seen (Few) /hpf Urine Bacteria None seen /hpf Urine Casts 0-2 Imaging Data Attestation: I personally reviewed and interpreted this imaging study as follows: Radiologist's impression: Impressions Hip/Pelvis X-Ray 11/16/24 09:57 Impression: No acute abnormality. Right hip arthroplasty. Minimal degenerative change of the left hip joint. Lumbar Spine CT 11/16/24 11:27 IMPRESSION: 1. Acute burst fractures at T11 and L1. 2. Moderate lumbar spondylosis with new moderate central canal at both T12-L1 and L1-L2 resulting from the retropulsion associated with the new L1 burst fracture and of a subacute L2 burst fracture with interval vertebroplasty. 3. Ectatic proximal abdominal aorta measuring up to 3.6 cm. Lumbar Spine MRI 11/16/24 14:27 IMPRESSION: 1. Recent burst fractures at T11 and L1. 2. Mild thoracic and moderate lumbar spondylosis most notable for moderate central canal stenosis at T12-L1 and L1-L2 resulting from the retropulsion associated with the new L1 burst fracture and of the subacute L2 burst fracture post relatively recent vertebroplasty. Thoracic Spine MRI 11/16/24 14:27 IMPRESSION: 1. Recent burst fractures at T11 and L1. 2. Mild thoracic and moderate lumbar spondylosis most notable for moderate central canal stenosis at T12-L1 and L1-L2 resulting from the retropulsion associated with the new L1 burst fracture and of the subacute L2 burst fracture post relatively recent vertebroplasty. Discharge Plan Discharge Clinical Impression: Burst fracture of lumbar vertebra, Fracture of L1 vertebra, Fracture of T1 vertebra, Retropulsion Patient Disposition: Left Against Medical Advice Condition: Guarded Prognosis Patient Language: Danish Prescriptions: No Action magnesium citrate [OneLAX Magnesium Citrate] Solution 150 ml PO DAILY prednisone 10 mg tablet 10 mg PO BID 10 Days Qty: 20 0RF tramadol 50 mg tablet 50 mg PO Q6H PRN (Reason: back pain) Qty: 35 0RF Follow-up/Referrals: Gume Bermudez MD [Primary Care Provider] -
--- OUTSIDE RECORDS SUMMARY | 2024-11-16 10:22 | XMS_ITS | Referral Summary ---
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 Gender Identity Not on file Sexual Orientation Not on file Last Filed Vital Signs Vital Sign Reading Time Taken Comments Blood Pressure 132/80 09/26/2017 9:48 AM CDT Pulse 71 09/26/2017 9:48 AM CDT Temperature - - Respiratory Rate 18 09/26/2017 9:48 AM CDT Oxygen Saturation 93% 08/13/2017 12:10 PM [employer]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
--- OUTSIDE RECORDS SUMMARY | 2024-11-16 10:22 | XMS_ITS | Clinical Summary ---
Author Organization [facility] Address [address] [place] [id number] Phone Care Team Providers Care Textile Clothing And Footwear Mechanic Name Role Phone Gume Bermudez MD Primary Care Provider [phone] Social History Tobacco Use Types Packs/Day Years [...] Influenza Vaccine (Season Ended) 2025 Insurance MEDICARE [place] [id number] Care Teams Textile Clothing And Footwear Mechanic Relationship Specialty Start Date End Date Gume Bermudez MD [address] [facility] [address] [place] [id number] PCP - General Internal Medicine 01/15/22
--- OUTSIDE RECORDS SUMMARY | 2024-11-16 10:22 | XMS_ITS | Clinical Summary ---
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 Gender Identity Not on file Sexual Orientation Not on file Obstetrics History Last Filed Vital Signs Vital Sign Reading Time Taken Comments Blood Pressure 132/80 09/26/2017 9:48 AM CDT Pulse 71 09/26/2017 9:48 AM CDT Temperature - - Respiratory Rate 18 09/26/2017 9:48 AM CDT Oxygen Saturation 93% 08/13/2017 12:10 PM TOP LIFT NAILER Inhaled Oxygen Concentration - - Weight 61.7 [...] 09/26/2017 Influenza Vaccine (Season Ended) [address] [place] [address] [facility] INSURANCE MEDICARE [place] Member Subscriber Plan / Payer (Ef fective 2017-Present) Name:Radha Sánchez Relation to Subscriber:Self Name:Radha Sánchez Payer ID:[id number] Group ID:Not on file Type:[employer] Address: [address] [address] [place] [address] MEDICARE Care Teams Cancer Program Coordinator Relationship Specialty Start Date End Date Gume Bermudez MD [address] MED[address]INE [place], [place] [id number] PCP - General Internal Medicine 08/13/17
[2024-11-16] MEDS: HYDROcodone/acetaminophen (*CRX) 5-325 MG TABLET 1 TAB PO (10:27)
[2024-11-16 11:34] VITALS: BP 130/75; PULSE 87; RESP 20; O2SAT 95
[2024-11-16] MEDS: MORPHINE SULFATE (*CRX) 4 MG/ML INJ IV PUSH (12:30)
[2024-11-16] MEDS: SODIUM CHLORIDE 0.9% IV 1,000 ML 999 ML IV CONT (12:30)
[2024-11-16 14:46] LABS: Add Urine Microscopic? YES; Appearance Urine Clear (Clear); Bacteria Urine None Seen /hpf; Bilirubin Urine Negative (Negative); Blood Urine Trace (Negative); Color Urine Yellow (Yellow); Glucose Urine UA Negative (Negative); Ketones Urine Negative (Negative); Leukocyte Esterase Ur Negative LEU/UL (Negative); Nitrate Urine Negative (Negative); Non Pathogenic Casts 0-2; Protein Urine 1+ mg/dL (Negative); Specific Grav Ur 1.011 (1.001-1.035); Squamous Epithelial Cell Urine None Seen /hpf (Few); Urobilinogen Urine 0.2 mg/dL (<2.0); WBC Urine 0-5 /hpf (0-3); pH Urine 7.5 (5.0-9.0)
[2024-11-16 14:47] LABS: Basophils Absolute Auto 0.1 K/mm3 (0.0-0.1); Basophils Percent Auto 0.7 % (0.2-1.2); Eosinophils Absolute Auto 0.1 K/mm3 (0-0.3); Eosinophils Percent Auto 0.7 % (0-4.4); Hematocrit 44.6 % (37.0-47.0); Hemoglobin 14.2 g/dL (12.0-15.0); Immature Granulocyte Absolute 0.05 K/mm3 (0.00-0.031); Immature Granulocyte Percent A 0.7 % (0-0.5); Lymphocytes Absolute Auto 1.81 K/mm3 (0.9-3.2); Mean Corpuscular HGB Conc 31.8 g/dl (32-36); Mean Corpuscular Hemoglobin 32.9 pg (26-34); Mean Corpuscular Volume 103.2 fl (80-100); Monocytes Absolute Auto 0.5 K/mm3 (0.1-0.6); Neutrophils Absolute Auto 4.3 K/mm3 (1.3-6.7); Neutrophils Percent Auto 63.9 % (45.5-73.1); Platelet Count Result 465 k/mm3 (150-375); Red Blood Count 4.32 M/mm3 (4.2-5.4); Red Cell Distribution Width 16.4 % (11.5-14.5); White Blood Count 6.7 K/mm3 (4.5-10.0)
[2024-11-16 14:49] LABS: Alanine Aminotransferase 21 U/L (6-35); Albumin Level 3.4 g/dL (3.5-5.1); Alkaline Phosphatase 136 U/L (38-126); Anion Gap 2 mmol/L (4-12); Aspartate Amino Transferase 38 U/L (14-36); Bilirubin,Total 0.4 mg/dL (0.2-1.3); Blood Urea Nitrogen 11 mg/dL (7-17); Calcium 8.3 mg/dL (8.4-10.2); Carbon Dioxide 27 mmol/L (22-30); Chloride 109 mmol/L (98-107); Estimated CRCL calculation 43 ml/min; Estimated Glomerular Filt Rate > 60; Glucose 80 mg/dL (65-110); Potassium 3.7 mmol/L (3.4-5.0); Sodium 138 mmol/L (137-145); Total Protein 6.5 g/dL (6.3-8.2)
[2024-11-16 15:00] VITALS: BP 126/79; PULSE 69; RESP 19; O2SAT 100
--- NOTE | 2024-11-16 15:33 | PC.NURSE ---
Pt up and walking, put her clothes on, pulled all the monitors off. Pt states: I am going home! You can not keep me here! MAJOR ASSEMBLY INSPECTOR present, explained all the risks of going home AMA. Pt verbalized understanding, pt states: I will take the risk, I am going home and you con not stop me!
== END 2024-11-16 15:40 | disposition left against medical advice (07) ==
LOC: ANHED 09:36
PROVIDERS: Emergency Provider Registered Nurse; PCP Internal Medicine
DX: S32.011A Stable burst fracture of first lumbar vertebra, initial encounter for closed fracture (principal); S22.011A Stable burst fracture of first thoracic vertebra, initial encounter for closed fracture; S22.021A Stable burst fracture of second thoracic vertebra, initial encounter for closed fracture; I25.10 Atherosclerotic heart disease of native coronary artery without angina pectoris; E55.9 Vitamin D deficiency, unspecified; E78.5 Hyperlipidemia, unspecified; R73.03 Prediabetes; K21.9 Gastro-esophageal reflux disease without esophagitis; M19.90 Unspecified osteoarthritis, unspecified site; F32.A Depression, unspecified; F41.9 Anxiety disorder, unspecified; Z96.641 Presence of right artificial hip joint; Z96.652 Presence of left artificial knee joint; Z90.49 Acquired absence of other specified parts of digestive tract; F17.210 Nicotine dependence, cigarettes, uncomplicated; M47.816 Spondylosis without myelopathy or radiculopathy, lumbar region; M47.814 Spondylosis without myelopathy or radiculopathy, thoracic region; M48.05 Spinal stenosis, thoracolumbar region; M48.061 Spinal stenosis, lumbar region without neurogenic claudication; X58.XXXA Exposure to other specified factors, initial encounter
CPT/HCPCS: 36415; 72131; 72157; 72158; 73502; 80053; 81001; 85025; 96361; 96374; 99284; A9270; A9579; J2270; J7030

== ENCOUNTER 2024-11-25 19:02 | Emergency (ER) | payer MEDICARE, SELFPAY ==
--- OUTSIDE RECORDS SUMMARY | 2024-11-25 19:05 | XMS_ITS | Encounter Summary ---
Author Organization [facility] Healthcare Address [address] [place] [address] Care Team Providers Care Cocoa Bean Roaster Name Role Phone Gume Bermudez MD Primary Care Provider [phone] Encounter Details Date Type Department Care Team (Late st Contact Info) Description 08/26/2017 [place] [facility] [place] Management [address] [place] [id number] Scanning, Provider Social History Tobacco Use Types Packs/Day Years Used Date Smoking Tobacco: Every Day Cigarettes Smokeless Tobacco: Never Alcohol Use Standard Drinks/Week Comments No 0 (1 standard drink = 0.6 oz pur e alcohol) Comments Unknown Sex and Gender Information Value Date Recorded Sex Assigned at Not on file 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 Gender Identity Not on file Sexual Orientation Not on file documented as of this encounter Plan of Treatment Not on file documented as of this encounter Procedures Procedure Name Priority Date/Time Associated Diagnosis Comments SCAN - LABS 08/26/2017 CARDIOLOGY DOCUMENT SCAN 08/26/2017 documented in this encounter Results * SCAN - LABS (08/26/2017) us Provider Scanning Final Result * Cardiology Document Scan (08/26/2017) Anatomical Region Laterality Modality Other us Provider Scanning CV CARDIAC SERVICES PROCEDURES Final Result documented in this encounter Visit Diagnoses Not on filedocumented in this encounter Care Teams Cocoa Bean Roaster Relationship Specialty Start Date End Date Gume Bermudez MD [address] [facility] [address] [place] [address] PCP - General Internal Medicine 08/13/17 documented as of this encounter
--- OUTSIDE RECORDS SUMMARY | 2024-11-25 19:05 | XMS_ITS | Encounter Summary ---
Author Organization [facility] Healthcare Address [address] [place] [address] Care Team Providers Care Wood Model Maker Name Role Phone Gume Bermudez MD Primary Care Provider [phone] Encounter Details Date Type Department Care Team (Late st Contact Info) Description 08/15/[address] 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 Gender Identity Not on file Sexual Orientation Not on file documented as of this encounter Plan of Treatment Not on file documented as of this encounter Procedures Procedure Name Priority Date/Time Associated Diagnosis Comments SCAN - RADIOLOGY/IMAGING 08/15/2017 documented in this encounter Results * SCAN - RADIOLOGY/IMAGING (08/15/2017) Anatomical Region Laterality Modality Other us Provider Scanning Final Result documented in this encounter Visit Diagnoses Not on filedocumented in this encounter Care Teams Wood Model Maker Relationship Specialty Start Date End Date Guem Bermudez MD [address] [place] [address] PCP - General Internal Medicine 08/13/17 documented as of this encounter
--- OUTSIDE RECORDS SUMMARY | 2024-11-25 19:05 | XMS_ITS | Clinical Summary ---
Author Organization [facility] Address [address] [place] [address] Phone Care Team Providers Care Transportation Mechanic Name Role Phone Gume Bermudez MD Primary Care Provider [phone] Social History Tobacco Use Types Packs/Day Years [...] Influenza Vaccine (Season Ended) 2025 Insurance MEDICARE [place] [id number] Care Teams Transportation Mechanic Relationship Specialty Start Date End Date Gume Bermudez MD [address] [facility] [address] [facility] [address] [place] [phone] PCP - General Internal Medicine 01/15/22
--- OUTSIDE RECORDS SUMMARY | 2024-11-25 19:05 | XMS_ITS | Clinical Summary ---
Author Organization [facility] [place] [address] Address [address] [place] [address] Care Team Providers Care Copy Editor Name Role Phone Gume Bermudez MD Primary Care Provider [phone] Allergies Active Allergy Reactions Criticality Noted Date [...] premature beats 09/26/2017 Other chest pain 08/13/2017 Encounters Date Type Department Care Team Description 11/18/2024 Telephone [facility] Department of Psychiatry [address] [facility] [address] [place] [address] Freedom Hill MD 11/17/2024 Telephone [facility] Department of Psychiatry [address] 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 Gender Identity Not on file Sexual Orientation Not on file Obstetrics History Last Filed Vital Signs Vital Sign Reading Time Taken Comments Blood Pressure 132/80 09/26/2017 9:48 AM CDT Pulse 71 09/26/2017 9:48 AM CDT Temperature - - Respiratory Rate 18 09/26/2017 9:48 AM CDT Oxygen Saturation 93% 08/13/2017 12:10 PM UNIFORM ATTENDANT Inhaled Oxygen Concentration - - Weight 61.7 [...] Vaccine (Season Ended) [address] [place] [address] [place] [employer] MEDICARE [place] [employer] MEDICARE Care Teams Copy Editor Relationship Specialty Start Date End Date Gume Bermudez MD [address] [facility] [address] [facility] [address] [place] [address] PCP - General Internal Medicine 08/13/17
--- OUTSIDE RECORDS SUMMARY | 2024-11-25 19:05 | XMS_ITS | Referral Summary ---
Author Organization [facility] [address] Address [address] [place] [address] Care Team Providers Care Peel Oven Tender Name Role Phone Gume Bermudez MD Primary Care Provider [phone] Encounters Date Type Department Care Team Description 11/18/2024 Telephone [facility] Department of Psychiatry [address] [facility] [address] [place] [address] Freedom Hill MD 11/17/2024 Telephone [facility] Department of Psychiatry [address] [facility] [address] [place] [address] Freedom Hill MD Requesting Call Back from Last 3 Months Allergies Active Allergy Reactions Criticality Noted Date [...] on file Legal 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 Female 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 Gender Identity Not on file Sexual Orientation Not on file Last Filed Vital Signs Vital Sign Reading Time Taken Comments Blood Pressure 132/80 09/26/2017 9:48 AM CDT Pulse 71 09/26/2017 9:48 AM CDT Temperature - - Respiratory Rate 18 09/26/2017 9:48 AM CDT Oxygen Saturation 93% 08/13/2017 12:10 PM EDGE BONDER Inhaled Oxygen Concentration - - Weight 61.7 kg (136 lb) 09/26/2017 9:48 AM CDT Height 157.5 cm (5' 2) 09/26/2017 9:48 AM CDT Body Mass Index 24.87 09/26/2017 9:48 AM CDT Plan of Treatment Not on file Insurance [facility] INSURANCE MEDICARE [place] [employer] MEDICARE Care Teams Peel Oven Tender Relationship Specialty Start Date End Date Gume Bermudez MD [address] MEDICINE [place], [place] [id number] PCP - General Internal Medicine 08/13/17
[2024-11-25 19:13] VITALS: BP 116/59; PULSE 91; RESP 15; TEMP 36.8; O2SAT 98
--- OUTSIDE RECORDS SUMMARY | 2024-11-25 21:29 | XMS_ITS | Clinical Summary ---
Author Organization [facility] [place] [address] Address [address] [place] [address] Care Team Providers Care Spiral Runner Name Role Phone Gume Bermudez MD Primary Care Provider [phone] Allergies Active Allergy Reactions Criticality Noted Date [...] Department Care Team Description 11/18/2024 Telephone [facility] Department of Psychiatry [address] [facility] [address] [place] [address] Freedom Hill MD 11/17/2024 Telephone [facility] Department of Psychiatry [address] 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 Gender Identity Not on file Sexual Orientation Not on file Obstetrics History Last Filed Vital Signs Vital Sign Reading Time Taken Comments Blood Pressure 132/80 09/26/2017 9:48 AM CDT Pulse 71 09/26/2017 9:48 AM CDT Temperature - - Respiratory Rate 18 09/26/2017 9:48 AM CDT Oxygen Saturation 93% 08/13/2017 12:10 PM REHABILITATION SERVICES DIRECTOR Inhaled Oxygen Concentration - - Weight 61.7 [...] Vaccine (Season Ended) [address] [place] [address] [place] [employer] MEDICARE [place] [employer] MED[employer]ARE Care Teams Spiral Runner Relationship Specialty Start Date End Date Gume Bermudez MD [address] [facility] [address] [facility] [address] [place] [address] PCP - General Internal Medicine 08/13/17
--- OUTSIDE RECORDS SUMMARY | 2024-11-25 21:29 | XMS_ITS | Encounter Summary ---
Author Organization [facility] Healthcare Address [address] [place] [address] Care Team Providers Care Career Technology Teacher Name Role Phone Gume Bermudez MD Primary Care Provider [phone] Encounter Details Date Type Department Care Team (Late st Contact Info) Description 08/15/2017 Orders Only [facility] [place] Health Information Management [address] [place] [address] Scanning, Provider Social History Tobacco Use Types Packs/Day Years Used Date Smoking Tobacco: Every Day Cigarettes Smokeless Tobacco: Never Alcohol Use Standard Drinks/Week Comments No 0 (1 standard drink = 0.6 oz pur e alcohol) Comments Unknown Sex and Gender Information Value Date Recorded Sex Assigned at Not on file 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
--- OUTSIDE RECORDS SUMMARY | 2024-11-25 21:29 | XMS_ITS | Encounter Summary ---
Author Organization [facility] Healthcare Address [address] [place] [address] Care Team Providers Care Ward Assistant Name Role Phone Gume Bermudez MD Primary Care Provider [phone] Encounter Details Date Type Department Care Team (Late st Contact Info) Description 08/26/2017 Orders Only [facility] [place] Health Information Management [address] [place] [address] Scanning, Provider Social History Tobacco Use Types Packs/Day Years Used Date Smoking Tobacco: Every Day Cigarettes Smokeless Tobacco: Never Alcohol Use Standard Drinks/Week Comments No 0 (1 standard drink = 0.6 oz pur e alcohol) Comments Unknown Sex and Gender Information Value Date Recorded Sex Assigned at Not on file 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
--- OUTSIDE RECORDS SUMMARY | 2024-11-25 21:29 | XMS_ITS | Referral Summary ---
Author Organization [facility] [address] Address [address] [place] [address] Care Team Providers Care Donor Services Manager Name Role Phone Gume Bermudez MD Primary Care Provider [phone] Encounters Date Type Department Care Team Description 11/18/2024 Telephone [facility] Department of Psychiatry [address] [facility] [address] [place] [address] Freedom Hill MD 11/17/2024 Telephone [facility] Department of Psychiatry [address] [facility] [address] [place] [address] Freedom Hill MD Requesting Call [...] on file Legal Sex Female 12:57 AM LAP WINDER Gender Identity Not on file Sexual Orientation Not on file Last Filed Vital Signs Vital Sign Reading Time Taken Comments Blood Pressure 132/80 09/26/2017 9:48 AM CDT Pulse 71 09/26/2017 9:48 AM CDT Temperature - - Respiratory Rate 18 09/26/2017 9:48 AM CDT Oxygen Saturation 93% 08/13/2017 12:10 PM LAP WINDER Inhaled Oxygen Concentration - - Weight 61.7 kg (136 lb) 09/26/2017 9:48 AM CDT Height 157.5 cm (5' 2) 09/26/2017 9:48 AM CDT Body Mass Index 24.87 09/26/2017 9:48 AM CDT Plan of Treatment Not on file Insurance [facility] INSURANCE MEDICARE [place] [employer] MED[employer]ARE Care Teams Donor Services Manager Relationship Specialty Start Date End Date Gume Bermudez MD [address] MED[address]INE [place], [place] [id number] PCP - General Internal Medicine 08/13/17
--- OUTSIDE RECORDS SUMMARY | 2024-11-25 21:29 | XMS_ITS | Clinical Summary ---
Author Organization [facility] Address [address] [place] [address] Phone Care Team Providers Care Anesthesiologist/Physician Name Role Phone Gume Bermudez MD Primary Care Provider [phone] Social History Tobacco Use Types Packs/Day Years [...] Influenza Vaccine (Season Ended) 2025 Insurance MEDICARE [place] [id number] Care Teams Anesthesiologist/Physician Relationship Specialty Start Date End Date Gume Bermudez MD [address] [facility] [address] [facility] [address] [place] [phone] PCP - General Internal Medicine 01/15/22
== END 2024-11-25 22:13 | disposition left against medical advice (07) ==
PROVIDERS: PCP Internal Medicine
DX: M54.9 Dorsalgia, unspecified (principal)
CPT/HCPCS: 99199

== ENCOUNTER 2024-12-01 12:05 | Emergency (ER) | payer MEDICARE, SELFPAY ==
[2024-12-01 12:25] VITALS: BP 111/71; PULSE 88; RESP 18; TEMP 36.9; O2SAT 100
--- NOTE | 2024-12-01 13:46 | PC.NURSE ---
Pt declined to be seen due to wait time.
== END 2024-12-01 14:08 | disposition left against medical advice (07) ==
LOC: ANHED 13:52
PROVIDERS: PCP Internal Medicine
DX: R11.2 Nausea with vomiting, unspecified (principal)
CPT/HCPCS: 99199

== ENCOUNTER 2024-12-03 20:21 | Inpatient (IN) | payer MEDICARE, SELFPAY ==
--- NOTE | ~2024-12-03 | CT_ITS ---
CLINICAL INDICATION: Diffuse abdominal pain. Worsening back and pelvic pain. Tenderness on examinatio n within the left upper and right lower quadrant. COMPARISON: 11/08/2024 and 02/20/2022. Reference is made to an MRI examination of the lumbar spine dated 11/16/2024 TECHNIQUE: Multiple contiguous axial images of the abdomen and pelvis were performed following the ad ministration of with 100 mL Omnipaque-350 intravenous contrast The dose-length product (DLP) was 258.02 mGy-cm. Automated exposure control and iterative reconstruction technique were employed. FINDINGS/OBSERVATIONS: Visualized lower thorax: Trace bibasilar atelectasis. The heart is enlarged without pericardial effusion. Moderate hiatal hernia is present. Liver: The liver demonstrates homogeneous enhancement and is not enlarged. Gallbladder and biliary system: The gallbladder is surgically absent. Redemonstration of both intra and extrahepatic biliary ductal dilatation, unchanged from 11/08/2024, bu t an interval change from 02/20/2022. Pancreas: The pancreas enhances homogeneously without ductal dilatation. Spleen: The spleen enhances homogeneously and is not enlarged. Kidneys: Redemonstration of multiple rounded foci of fluid attenuation within the bilateral kidneys. The largest is exophytic from the lower pole of the left kidney measuring 9.2 x 9.6 x 8.9 cm (anterio r to posterior x medial to lateral x cranial to caudal dimension). The remainder of the bilateral kidneys otherwise enhance symmetrically without hydronephrosis or everton l calculi. Adrenal glands: Unremarkable. Gastrointestinal tract: Fecal stasis within the colon. Appendix: The air-filled appendix is of normal caliber (axial series, images 93 through 125). Vasculature: Densely calcified atherosclerotic disease. Lymph nodes: No pathologically enlarged or morphologically suspicious lymph nodes within the retroperitoneum or at the root of the mesentery. Pelvic structures: The bladder is only minimally distended, and otherwise unremarkable. The uterus is atrophic or surgically absent. Body wall and musculoskeletal: Redemonstration of recent burst fractures at the level of L1 demonstrating near complete compression, an interval change when compared to examination of 11/08/2024. Interval progression of the compression fracture at the level of T11, when compared with MRI examinat ion of 11/16/2024, now demonstrating near-complete compression. Vertebral augmentation is identified at the level of L2, with trace confucianist of vertebral body hei ght. IMPRESSION: Interval progression of the T11 vertebral body fracture demonstrating near-complete compression, vert ebral plana. Interval progression of the L1 vertebral body fracture demonstrating near-complete compression, verte bral plana. Redemonstration of a large cyst within the left kidney measuring 9.6 cm in greatest dimension. Redemonstration of both intra and extrahepatic biliary ductal dilatation. Reviewed, dictated and finalized at location A. IMPRESSION: Interval progression of the T11 vertebral body fracture demonstrating near-comp lete compression, vertebral plana. Interval progression of the L1 vertebral body fracture demonstrating near-compl ete compression, vertebral plana. Redemonstration of a large cyst within the left kidney measuring 9.6 cm in grea test dimension. Redemonstration of both intra and extrahepatic biliary ductal dilatation.
[2024-12-03 20:27] VITALS: BP 128/61; PULSE 65; RESP 18; TEMP 36.6; O2SAT 98
--- NOTE | 2024-12-03 20:52 | ED_ITS ---
HPI - General Adult General Chief complaint: Back Pain/Injury Stated complaint: r sided pain Time Seen by Provider: 12/03/24 20:26 History of Present Illness HPI narrative: 79-year-old female presents to the emergency department for evaluation for worsening back and pelvic pain. Patient does have history of chronic pain does follow-up with Dr. Denny and with the pain clinic. Patient did have a triamcinolone and lidocaine injection on 11/[address] Denny. Patient reports that her pain has been worsening since that. Patient did have follow-up with her primary care physician patient refer to emergency department for further pain control. Patient and family are in touch with [facility] in order to get set up for placement. Patient states he does have increased lower extremity weakness but nothing focal. Patient denies any change in urination. Patient does have prior history of abdominal ulcers. Related Data Home Medications ?Medication ?Instructions ?Recorded ?Confirmed ?Last Taken ?Type magnesium citrate (OneLAX 150 ml PO DAILY 10/29/24 11/24/24 Unknown History Magnesium Citrate oral solution) Allergies Allergy/AdvReac Type Severity Reaction Status Date / Time No Known Allergies Allergy Verified 11/24/24 07:13 Review of Systems 2 Review of Systems: All systems reviewed & are unremarkable except as noted in HPI and below PMFSH Past Medical History Medical History BMI 23.0-23.9, adult Depression Arthritis Gastroesophageal reflux disease Degenerative joint disease Arteriosclerotic heart disease Chronic pain of left heel Cognitive changes Chronic fatigue Prediabetes Vitamin D deficiency Shingles Chest wall pain Tobacco abuse Anxiety and depression Hyperlipidemia Hearing loss 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 Code status: Full code. Smoking packs per day: 1 Smoking cigarettes per day: 20.0 Years smoked: 30 Smoking pack-years: 30.00 Smoking status: Current every day smoker Tobacco type: cigarettes Alcohol intake: never Substance use: never Substance use type: does not use Current Housing: Decline to Answer Concerned About Future Housing: Decline to Answer Difficulty Paying Gas/Electric Bills: Decline to Answer Difficulty Paying for Meds: Decline to Answer Currently Unemployed: Decline to Answer Education: Decline to Answer Difficulty w/ Childcare or Family Care: Decline to Answer Living arrangements: alone Spiritual care concerns: No Exam 2 Narrative: APPEARANCE: Uncomfortable appearing HEAD: normocephalic, atraumatic. EYES: PERRLA/EOMI, conjunctivae clear. NOSE: Normal no drainage EARS:TMS clear with good light reflex. THROAT: Pharynx clear, no exudate. NECK: Supple. No adenopathy, no masses. RESPIRATORY: Airway patent, respirations nonlabored. Clear to auscultation bilaterally, no rales, rhonchi, wheezing. CARDIOVASCULAR: Regular rate and rhythm without murmurs rubs or gallops. ABDOMINAL: Tenderness to left upper and right lower quadrant MUSCULOSKELETAL: Spinal tenderness to palpation NEURO: Alert. Cranial nerves II through XII intact. Good gait. Good coordination SKIN: No erythema at site of injection Course Vital Signs Vital signs: Vital Signs Temperature 97.8 F 12/03/24 20:27 Pulse Rate 65 12/03/24 20:27 Respiratory Rate 18 12/03/24 20:27 Blood Pressure 128/61 12/03/24 20:27 Pulse Oximetry 98 12/03/24 20:27 Temperature 98.5 F 12/04/24 00:45 Pulse Rate 85 12/04/24 00:45 Respiratory Rate 16 12/04/24 00:45 Blood Pressure 103/58 L 12/04/24 00:45 Pulse Oximetry 96 12/04/24 00:45 Medical Decision Making [facility] Narrative Medical decision making narrative: 79-year-old female present to the emergency department for evaluation for worsening back pain. Patient is anticipating admission to [facility] for pain control but patient's pain was not controlled home so she presented to the emergency department for further evaluation. Patient did have outpatient follow-up with Neurosurgery on 11/18 and surgery was not recommended at that point. Since that time patient has had worsening of the compression fractures on imaging and patient has had worsening pain. Denies any numbness or focal weakness down her legs. Patient denies any change in bowel or bladder habits. Patient is being admitted for pain control and order for neurosurgery consult was placed. UA was concerning for urinary tract infection and with lower abdominal tenderness patient was treated for a UTI. Patient was started on IV Rocephin. Urine cultures pending. Differential Diagnosis Differential Diagnosis: Back pain, thoracic spine fracture, lumbar spine fracture, UTI, colitis, diverticulitis, appendicitis Vital Signs Vital Signs: Vital Signs Temperature 97.8 F 12/03/24 20:27 Pulse Rate 65 12/03/24 20:27 Respiratory Rate 18 12/03/24 20:27 Blood Pressure 128/61 12/03/24 20:27 Pulse Oximetry 98 12/03/24 20:27 Temperature 98.5 F 12/04/24 00:45 Pulse Rate 85 12/04/24 00:45 Respiratory Rate 16 12/04/24 00:45 Blood Pressure 103/58 L 12/04/24 00:45 Pulse Oximetry 96 12/04/24 00:45 Lab Data Lab results reviewed: Yes I reviewed the patient's lab results. 12/03/24 21:20 12/03/24 21:20 Labs: Lab Results 12/03/24 12/03/24 Range/Units 21:20 22:56 WBC 10.6 H (4.5-10.0) K/mm3 RBC 3.09 L (4.2-5.4) M/mm3 Hgb 10.1 L D (12.0-15.0) g/dL Hct 32.3 L (37.0-47.0) % MCV 104.5 H (80-100) fl MCH 32.7 (26-34) pg MCHC 31.3 L (32-36) g/dl RDW 17.2 H (11.5-14.5) % Plt Count 542 H (150-375) k/mm3 MPV 8.9 (7.4-10.4) fl Immature Gran % (Auto) 0.8 H (0-0.5) % Neut % (Auto) 66.3 (45.5-73.1) % Lymph % (Auto) 21.1 (18.3-44.2) % [place] % (Auto) 10.0 H (2.6-8.5) % Eos % (Auto) 1.1 (0-4.4) % Baso % (Auto) 0.7 (0.2-1.2) % Lymph # (Auto) 2.24 (0.9-3.2) K/mm3 [place] # (Auto) 1.1 H (0.1-0.6) K/mm3 Eos # (Auto) 0.1 (0-0.3) K/mm3 Baso # (Auto) 0.1 (0.0-0.1) K/mm3 Abs Immat Gran (auto) 0.08 H (0.00-0.031) K/mm3 Absolute Neuts (auto) 7.0 H (1.3-6.7) K/mm3 Absolute Nucleated RBC 0.000 (0.0-0.012) K/mm3 Nucleated RBC % 0.0 (0.0-0.2) % PT 13.1 (11.1-14.7) Seconds INR 1.0 APTT 33.0 (22.3-36.8) Seconds Sodium 138 (137-145) mmol/L Potassium 4.3 (3.4-5.0) mmol/L Chloride 105 (98-107) mmol/L Carbon Dioxide 28 (22-30) mmol/L Anion Gap 5 (4-12) mmol/L BUN 21 H D (7-17) mg/dL Creatinine 0.76 (0.7-1.0) mg/dL Estim Creat Clear Calc 40 ml/min Estimated GFR > 60 (59 - ) Glucose 92 (65-110) mg/dL Lactic Acid 0.9 (0.7-2.0) mmol/L Calcium 8.9 (8.4-10.2) mg/dL Total Bilirubin 0.2 (0.2-1.3) mg/dL AST 26 (14-36) U/L ALT 14 (6-35) U/L Alkaline Phosphatase 135 H (38-126) U/L Total Protein 6.2 L (6.3-8.2) g/dL Albumin 3.2 L (3.5-5.1) g/dL Lipase 41 (23-300) U/L Urine Color Yellow (Yellow) Urine Appearance Clear (Clear) Urine pH 6.5 (5.0-9.0) Ur Specific [place] 1.036 H (1.001-1.035) Urine Protein 2+ H (Negative) mg/dL Urine Glucose (UA) Negative (Negative) mg/dL Urine Ketones Negative (Negative) mg/dL Ur Blood (Man) 2+ H (Negative) Urine Nitrate Positive H (Negative) Urine Bilirubin Negative (Negative) Urine Urobilinogen 0.2 (<2.0) mg/dL Leukocyte Esterase Rfl Negative (Negative) RY/UL Urine RBC 11-20 H (0-2) /hpf Urine WBC 6-10 H (0-3) /hpf Ur Squamous Epith Cells None seen (Few) /hpf Urine Bacteria 4+ /hpf Urine Casts 3-5 Imaging Data Radiologist's impression: Impressions Abdomen/Pelvis CT 12/03/24 22:17 IMPRESSION: Interval progression of the T11 vertebral body fracture demonstrating near- complete compression, vertebral plana. Interval progression of the L1 vertebral body fracture demonstrating near- complete compression, vertebral plana. Redemonstration of a large cyst within the left kidney measuring 9.6 cm in greatest dimension. Redemonstration of both intra and extrahepatic biliary ductal dilatation. Discharge Plan Discharge Clinical Impression: Compression fracture, Back pain Patient Disposition: Still a Patient Condition: Stable
[2024-12-03] MEDS: PANTOPRAZOLE SODIUM IV 40 MG VIAL IV PUSH (21:08)
[2024-12-03] MEDS: SODIUM CHLORIDE 0.9% INJ 10 ML (21:11)
[2024-12-03] MEDS: FAMOTIDINE 20 MG/2 ML VIAL IV PUSH (21:12)
[2024-12-03] MEDS: HYDROmorphone HCL INJ (*CRX) 2 MG/ML VIAL 0.5 MG IV PUSH (21:15)
[2024-12-03 21:18] VITALS: BP 144/66; PULSE 78; RESP 18; O2SAT 98
[2024-12-03 21:27] LABS: Hematocrit 32.3 % (37.0-47.0); Hemoglobin 10.1 g/dL (12.0-15.0); Immature Granulocyte Percent A 0.8 % (0-0.5); Lymphocytes Absolute Auto 2.24 K/mm3 (0.9-3.2); Mean Corpuscular HGB Conc 31.3 g/dl (32-36); Mean Corpuscular Hemoglobin 32.7 pg (26-34); Mean Corpuscular Volume 104.5 fl (80-100); Nucleated Red Blood Cells Absolute Auto 0.000 K/mm3 (0.0-0.012); Nucleated Red Blood Cells Perc 0.0 % (0.0-0.2); Platelet Count Result 542 k/mm3 (150-375); Red Blood Count 3.09 M/mm3 (4.2-5.4); White Blood Count 10.6 K/mm3 (4.5-10.0)
[2024-12-03 21:36] LABS: Alanine Aminotransferase 14 U/L (6-35); Albumin Level 3.2 g/dL (3.5-5.1); Alkaline Phosphatase 135 U/L (38-126); Anion Gap 5 mmol/L (4-12); Aspartate Amino Transferase 26 U/L (14-36); Bilirubin,Total 0.2 mg/dL (0.2-1.3); Blood Urea Nitrogen 21 mg/dL (7-17); Calcium 8.9 mg/dL (8.4-10.2); Carbon Dioxide 28 mmol/L (22-30); Chloride 105 mmol/L (98-107); Estimated CRCL calculation 40 ml/min; Estimated Glomerular Filt Rate > 60; Glucose 92 mg/dL (65-110); Lipase 41 U/L (23-300); Potassium 4.3 mmol/L (3.4-5.0); Sodium 138 mmol/L (137-145); Total Protein 6.2 g/dL (6.3-8.2)
[2024-12-03 21:38] LABS: INR 1.0; Prothrombin Time 13.1 Seconds (11.1-14.7)
[2024-12-03 21:39] LABS: Partial Thromboplastin Time 33.0 Seconds (22.3-36.8)
[2024-12-03 22:25] VITALS: BP 136/70; PULSE 78; RESP 18; O2SAT 99
--- NOTE | 2024-12-03 22:54 | PC.NURSE ---
Daughter/POA updated in plan of care for admission and neurosurgery consult. Aware of likely boarding status. All questions answered.
[2024-12-03 23:00] VITALS: BP 159/69; PULSE 85; RESP 16; TEMP 37.2; O2SAT 95
[2024-12-03 23:08] LABS: Add Urine Microscopic? YES; Appearance Urine Clear (Clear); Glucose Urine UA Negative (Negative); Leukocyte Esterase Ur Negative LEU/UL (Negative); Nitrate Urine Positive (Negative); Specific Grav Ur 1.036 (1.001-1.035)
[2024-12-04] VITALS (8 sets, daily range): BP systolic 101–141; BP diastolic 58–66; PULSE 65–85; RESP 16–20; TEMP 36.4–37.2; O2SAT 95–99; BMI 21.5
[2024-12-04] MEDS: MORPHINE SULFATE (*CRX) 2 MG/ML INJ IV PUSH ×5 (00:41→21:14)
--- NOTE | 2024-12-04 01:14 | ADMGEN ---
This patient, Radha Sánchez, was admitted to [facility] Surg Room 302-01. Patient/family oriented to hospital policies and general routines including ID bracelet, bed and alarms, visiting hours, pain management, procedures, bathroom and other care routines, personal items, smoking policy, room service/diet, and visiting hours. Information on how to activate the Rapid Response Team has been discussed. Patient/Family are encouraged to report perceived risks to care and to ask questions if they do not understand what they are told or what they should do.
[2024-12-04] MEDS: LIDOCAINE 5% PATCH 1 PATCH TRANSDERM ×2 (02:26→18:49)
[2024-12-04] MEDS: HYDROcodone/acetaminophen (*CRX) 5-325 MG TABLET 1 TAB PO ×4 (02:26→19:54)
--- NOTE | 2024-12-04 03:55 | PM.IMHP ---
H&P: HPI History of Present Illness Date/Time: 12/04/24 05:30 Chief Complaint: Back and pelvic pain. Narrative: This is an 79-year-old female with history of chronic back pain, compression and burst fractures, dementia, depression, and anxiety who presented to the emergency department via EMS with complaints of back and pelvic pain. She has chronic back pain and a history of kyphoplasty and epidural injections per Dr. Mast. Her back pain has been worse after she sustained a fall on 11/16/2024. At that time she was seen in the ED and imaging shows acute burst fractures at T11 and L1. She saw the nurse practitioner for Neurosurgery who recommended immobilization with TLSO brace, heat/ice, acetaminophen, NSAIDs, tramadol, and topical agents for pain control. She also saw Dr. Denny for ongoing right hip pain and he gave her a Kenalog injection about a week and a half ago. Unfortunately, her pain has been getting worse every day. She is able to stand and ambulate which seems to exacerbate the pain some. She has difficulties describing the pain but states that it is severe and occasionally radiates down her legs. She denies saddle anesthesia, urinary retention, bowel incontinence, focal weakness, and paresthesias. She also denies fever, cold and flu symptoms, chest pain, pleuritic pain, shortness of breath, nausea, and vomiting. Perhaps some mild dysuria but nothing significant. In the ED: Imaging showed interval progression of T11 and L1 vertebral body fractures demonstrating near complete compression, vertebra plana. She received hydromorphone 0.5 mg IV and ceftriaxone 1 g for suspected urinary tract infection and she is being admitted in this setting for further treatment and neurosurgery consultation. Review of Systems Review of Systems: 12 systems were reviewed and are negative except for as per HPI. 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 Code status: Full code. Smoking packs per day: 1 Smoking cigarettes per day: 20.0 Years smoked: 30 Smoking pack-years: 30.00 Smoking status: Heavy tobacco smoker Tobacco type: cigarettes Alcohol intake: current Substance use: never Substance use type: does not use Do You Feel Safe in your Home?: Yes Lack of Transportation: No Lack of Food: Never True Current Housing: I Have Housing Concerned About Future Housing: No Difficulty Paying Gas/Electric Bills: No Difficulty Paying for Meds: No Currently Unemployed: No Education: Bachelor's Degree Difficulty w/ Childcare or Family Care: No Living arrangements: alone Spiritual care concerns: No Meds Home Medications and Allergies Home Medications ?Medication ?Instructions ?Recorded ?Confirmed ?Type magnesium citrate (OneLAX 150 ml PO DAILY 10/29/24 12/04/24 History Magnesium Citrate oral solution) tizanidine 2 mg tablet 2 mg PO TID PRN muscle spasticity 11/18/24 12/04/24 Rx #30 tabs suzetrigine 50 mg tablet (Journavx) 50 mg PO BID pain #30 tabs 11/26/24 12/04/24 Rx tramadol 50 mg tablet 50 mg PO Q6H PRN back pain #35 tabs 11/30/24 12/04/24 Rx amitriptyline 50 mg tablet 50 mg PO DAILY 12/04/24 12/04/24 History nitroglycerin 0.4 mg sublingual 0.4 mg sublingual Q5M PRN chest 12/04/24 12/04/24 History tablet pain Allergies Allergy/AdvReac Type Severity Reaction Status Date / Time No Known Allergies Allergy Verified 11/24/24 07:13 Vital Signs Vital Signs - 24 hr 12/03/24 20:27 12/03/24 21:18 12/03/24 22:25 Temperature 97.8 F Pulse Rate 65 78 78 Respiratory Rate 18 18 18 Blood Pressure 128/61 144/66 H 136/70 Pulse Oximetry 98 98 99 12/03/24 23:00 12/04/24 00:00 12/04/24 00:45 Temperature 98.9 F 98.5 F Pulse Rate 85 85 85 Respiratory Rate 16 16 16 Blood Pressure 159/69 H 103/58 L 103/58 L Pulse Oximetry 95 96 96 12/04/24 01:09 Temperature 99.0 F Pulse Rate 75 Respiratory Rate 17 Blood Pressure 137/66 Pulse Oximetry 99 Exam Narrative: General: Thin elderly female sitting up in bed in no distress. She is able to move freely in the bed and is able to stand and walk around the room. Weight: 53.4 kg. BMI: 21.5. HEENT: PERRL, EOMI. Sclera anicteric. Oral mucosa moist. Oropharynx clear. Neck: Supple. Respiratory: Lungs are clear to auscultation bilaterally. Cardiovascular: Regular rate and rhythm with S1-S2. Gastrointestinal: Abdomen is soft, nontender, and nondistended with positive bowel sounds. Skin: Warm and dry. Extremities: No cyanosis, clubbing, or edema. Radial and pedal pulses intact. Spine: Mild tenderness to palpation over the mid back. Neurological: Alert. Cranial nerves 2-12 are grossly intact. No gross focal deficits to casual conversation. Psychiatric: Pleasant and cooperative with appropriate mood and affect. Perhaps slightly forgetful. H&P: Results Labs Labs: Short CBC 12/03/24 Range/Units 21:20 WBC 10.6 H (4.5-10.0) K/mm3 Hgb 10.1 L D (12.0-15.0) g/dL Hct 32.3 L (37.0-47.0) % Plt Count 542 H (150-375) k/mm3 BMP 12/03/24 21:20 Sodium 138 Potassium 4.3 Chloride 105 Carbon Dioxide 28 BUN 21 H D Creatinine 0.76 Glucose 92 Calcium 8.9 Liver Function 12/03/24 Range/Units 21:20 Total Bilirubin 0.2 (0.2-1.3) mg/dL AST 26 (14-36) U/L ALT 14 (6-35) U/L Alkaline Phosphatase 135 H (38-126) U/L Albumin 3.2 L (3.5-5.1) g/dL Urine 12/03/24 Range/Units 22:56 Urine Color Yellow (Yellow) Urine Appearance Clear (Clear) Urine pH 6.5 (5.0-9.0) Ur Specific [place] 1.036 H (1.001-1.035) Urine Protein 2+ H (Negative) mg/dL Urine Glucose (UA) Negative (Negative) mg/dL Impressions Abdomen/Pelvis CT 12/03/24 22:17 IMPRESSION: Interval progression of the T11 vertebral body fracture demonstrating near-complete compression, vertebral plana. Interval progression of the L1 vertebral body fracture demonstrating near-complete compression, vertebral plana. Redemonstration of a large cyst within the left kidney measuring 9.6 cm in greatest dimension. Redemonstration of both intra and extrahepatic biliary ductal dilatation. Assessment and Plan Assessment and plan (1) Compression fracture of T11 vertebra: Code(s): S22.080A - Wedge compression fracture of T11-T12 vertebra, initial encounter for closed fracture Status: Acute (2) Compression fracture of L1 vertebra: Code(s): S32.010A - Wedge compression fracture of first lumbar vertebra, initial encounter for closed fracture Status: Acute (3) Urinary tract infection: Code(s): N39.0 - Urinary tract infection, site not specified Status: Acute Plan The patient presented to the emergency department for evaluation of worsening back pain after a fall with T11 and L1 burst fractures as detailed in HPI. Labs, imaging, EKG, and all reports were personally reviewed. Imaging today shows interval progress of both fractures demonstrate near complete compression. Continue TLSO brace when out of bed. Analgesics are available as needed. Neurosurgery has been consulted. Continue ceftriaxone for urinary tract infection, pending urine culture. Vital signs have been stable and will be monitored. Her home medications will be reviewed and resumed as appropriate. Findings and treatment plan were discussed with the patient. Questions were solicited and answered to satisfaction. The patient's medical management will be taken over by the hospitalist team in a.m. Quality VTE Prophylaxis VTE prophylaxis: mechanical ordered If No VTE Prophylaxis Answer both mechanical and pharmacologic: Reason no pharmacologic proph: medical contraindication (may need procedure) The patient has been admitted under observation status. Hospitalist MIPS Advance Care Plan I have confirmed that the patient's Advanced Care Plan is present, code status is documented, or surrogate decision maker is listed in patient medical record.: Yes Medication Reconciliation I have utilized all available resources to obtain, update and review the patients current medications (includes all prescriptions, OTC, herbals, cannabis, and nutritional supplements).: Yes
[2024-12-04] MEDS: ACETAMINOPHEN 325 MG TABLET 650 MG PO ×2 (05:56→13:39)
[2024-12-04 07:27] LABS: Hematocrit 35.7 % (37.0-47.0); Hemoglobin 11.2 g/dL (12.0-15.0); Mean Corpuscular HGB Conc 31.4 g/dl (32-36); Mean Corpuscular Hemoglobin 33.4 pg (26-34); Mean Corpuscular Volume 106.6 fl (80-100); Platelet Count Result 690 k/mm3 (150-375); Red Blood Count 3.35 M/mm3 (4.2-5.4); White Blood Count 13.6 K/mm3 (4.5-10.0)
[2024-12-04 08:01] LABS: Alanine Aminotransferase 18 U/L (6-35); Albumin Level 3.7 g/dL (3.5-5.1); Alkaline Phosphatase 164 U/L (38-126); Anion Gap 6 mmol/L (4-12); Aspartate Amino Transferase 32 U/L (14-36); Bilirubin,Total 0.3 mg/dL (0.2-1.3); Blood Urea Nitrogen 18 mg/dL (7-17); Calcium 9.3 mg/dL (8.4-10.2); Carbon Dioxide 27 mmol/L (22-30); Chloride 104 mmol/L (98-107); Estimated CRCL calculation 37 ml/min; Estimated Glomerular Filt Rate > 60; Glucose 109 mg/dL (65-110); Potassium 4.3 mmol/L (3.4-5.0); Sodium 137 mmol/L (137-145); Total Protein 7.1 g/dL (6.3-8.2)
[2024-12-04] MEDS: AMITRIPTYLINE HCL 25 MG TABLET 50 MG PO (08:40)
--- NOTE | 2024-12-04 11:01 | PM.IMPN ---
Progress Note: A&P Assessment and Plan (1) Compression fracture of T11 vertebra: Code(s): S22.080A - Wedge compression fracture of T11-T12 vertebra, initial encounter for closed fracture Status: Acute (2) Compression fracture of L1 vertebra: Code(s): S32.010A - Wedge compression fracture of first lumbar vertebra, initial encounter for closed fracture Status: Acute (3) Urinary tract infection: Code(s): N39.0 - Urinary tract infection, site not specified Status: Acute Plan The patient presented to the emergency department for evaluation of worsening back pain after a fall with T11 and L1 burst fractures as detailed in HPI. Labs, imaging, EKG, and all reports were personally reviewed. Imaging today shows interval progress of both fractures demonstrate near complete compression. Continue TLSO brace when out of bed. Analgesics are available as needed. Neurosurgery has been consulted. Continue ceftriaxone for urinary tract infection, pending urine culture. Vital signs have been stable and will be monitored. Her home medications will be reviewed and resumed as appropriate. Findings and treatment plan were discussed with the patient. 12/04: Patient still has severe pain, no focal deficit, numbness tingling lower extremity or urinary fecal incontinence Appreciate neurosurgeons consultation, patient will benefit from medical management per neurosurgeon's recommendation Continue PT OT Consult disabilities caregiver, patient may need placement in retirement Subjective Date/time seen: 12/04/24 11:01 Interval history: I saw exam patient today, patient still has low back pain, denies focal weakness, your fecal incontinence, numbness tingling of lower extremities Exam Narrative: GENERAL: Pleasant, in no acute distress. Well-nourished. - EYES: EOMI. Anicteric. - HENT: Moist mucous membranes. - LUNGS: Clear to auscultation bilaterally, no wheezing, rhonchi, or rales. - CARDIOVASCULAR: Regular rate and rhythm. No murmur. No JVD. - ABDOMEN: Soft, non-tender and non-distended. No palpable masses. - EXTREMITIES: No edema. Peripheral pulses 2+. Non-tender. Tenderness of mid of spine - NEUROLOGIC: No focal neurological deficits. CN II-XII grossly intact. - PSYCHIATRIC: Awake, Alert and oriented x 3. Appropriate mood and affect. - SKIN: No rashes or lesions. Warm. - LYMPH: No cervical lymphadenopathy. Objective Data Vital Signs Vital Signs: Vital Signs - 24 hr 12/03/24 20:27 12/03/24 21:18 12/03/24 22:25 Temperature 97.8 F Pulse Rate 65 78 78 Respiratory Rate 18 18 18 Blood Pressure 128/61 144/66 H 136/70 Pulse Oximetry 98 98 99 Oxygen Delivery 12/03/24 23:00 12/04/24 00:00 12/04/24 00:45 Temperature 98.9 F 98.5 F Pulse Rate 85 85 85 Respiratory Rate 16 16 16 Blood Pressure 159/69 H 103/58 L 103/58 L Pulse Oximetry 95 96 96 Oxygen Delivery 12/04/24 01:09 12/04/24 01:45 12/04/24 05:45 Temperature 99.0 F 99.0 F Pulse Rate 75 69 Respiratory Rate 17 16 Blood Pressure 137/66 101/62 Pulse Oximetry 99 99 Oxygen Delivery Room Air 12/04/24 08:00 12/04/24 10:11 Temperature Pulse Rate Respiratory Rate Blood Pressure Pulse Oximetry 99 95 Oxygen Delivery Room Air Room Air Intake/Output Intake/Output: Intake & Output 12/01/24 12/02/24 12/03/24 12/04/24 23:59 23:59 23:59 23:59 Intake Total 10 240 Balance 10 240 Meds/Results Medications: Active Medications Generic Name Dose Route Start Last Admin Trade Name Freq PRN Reason Stop Dose Admin Acetaminophen 650 mg 12/04/24 02:15 12/04/24 05:56 Acetaminophen 325 Mg Tablet PO 650 mg Q6H PRN Administration Mild Pain (1-3) or Fever Hydrocodone Bitart/Acetaminophen 1 tab 12/04/24 02:15 12/04/24 08:41 Hydrocodone/Acetaminophen (*Crx) 5-325 Mg Tablet PO 12/05/24 02:14 1 tab Q6H PRN Administration Pain Rated 4-6 Amitriptyline HCl 50 mg 12/04/24 09:00 12/04/24 08:40 Amitriptyline Hcl 25 Mg Tablet PO 50 mg DAILY RED Administration Ceftriaxone Sodium 1 gm in 50 mls @ 100 mls/hr 12/05/24 01:00 Rocephin 1 Gm/Ns 50 Ml IVPB Q24H RED Lidocaine 1 patch 12/04/24 02:15 12/04/24 08:37 Lidocaine 5% Patch TRANSDERM Not Given DAILY [facility] Morphine Sulfate 2 mg 12/03/24 23:19 12/04/24 03:08 Morphine Sulfate (*Crx) 2 Mg/Ml Inj IV PUSH 2 mg Q2H PRN Administration Pain Rated 7-10 Radiology Results: ITS Impressions Abdomen/Pelvis CT 12/03/24 22:17 IMPRESSION: Interval progression of the T11 vertebral body fracture demonstrating near-complete compression, vertebral plana. Interval progression of the L1 vertebral body fracture demonstrating near-complete compression, vertebral plana. Redemonstration of a large cyst within the left kidney measuring 9.6 cm in greatest dimension. Redemonstration of both intra and extrahepatic biliary ductal dilatation. Labs Labs: Laboratory Results - last 24 hr 12/03/24 12/03/24 12/04/24 21:20 22:56 06:35 WBC 10.6 H 13.6 H RBC 3.09 L 3.35 L Hgb 10.1 L D 11.2 L Hct 32.3 L 35.7 L MCV 104.5 H 106.6 H MCH 32.7 33.4 MCHC 31.3 L 31.4 L RDW 17.2 H 17.2 H Plt Count 542 H 690 H MPV 8.9 9.2 Immature Gran % (Auto) 0.8 H Neut % (Auto) 66.3 Lymph % (Auto) 21.1 [place] % (Auto) 10.0 H Eos % (Auto) 1.1 Baso % (Auto) 0.7 Lymph # (Auto) 2.24 [place] # (Auto) 1.1 H Eos # (Auto) 0.1 Baso # (Auto) 0.1 Abs Immat Gran (auto) 0.08 H Absolute Neuts (auto) 7.0 H Absolute Nucleated RBC 0.000 Nucleated RBC % 0.0 PT 13.1 INR 1.0 APTT 33.0 Sodium 138 137 Potassium 4.3 4.3 Chloride 105 104 Carbon Dioxide 28 27 Anion Gap 5 6 BUN 21 H D 18 H Creatinine 0.76 0.83 Estim Creat Clear Calc 40 37 Estimated GFR > 60 > 60 Glucose 92 109 Lactic Acid 0.9 Calcium 8.9 9.3 Total Bilirubin 0.2 0.3 AST 26 32 ALT 14 18 Alkaline Phosphatase 135 H 164 H Total Protein 6.2 L 7.1 Albumin 3.2 L 3.7 Lipase 41 Urine Color Yellow Urine Appearance Clear Urine pH 6.5 Ur Specific [place] 1.036 H Urine Protein 2+ H Urine Glucose (UA) Negative Urine Ketones Negative Ur Blood (Man) 2+ H Urine Nitrate Positive H Urine Bilirubin Negative Urine Urobilinogen 0.2 Leukocyte Esterase Rfl Negative Urine RBC 11-20 H Urine WBC 6-10 H Ur Squamous Epith Cells None seen Urine Bacteria 4+ Urine Casts 3-5
[2024-12-05] MEDS: ACETAMINOPHEN 325 MG TABLET 650 MG PO ×2 (00:59→20:16)
[2024-12-05] MEDS: MORPHINE SULFATE (*CRX) 2 MG/ML INJ IV PUSH ×6 (04:40→22:49)
[2024-12-05 06:00] VITALS: BP 128/22; PULSE 74; RESP 20; TEMP 36.5; O2SAT 95
[2024-12-05 06:35] VITALS: BP 122/61
[2024-12-05] MEDS: AMITRIPTYLINE HCL 25 MG TABLET 50 MG PO (09:01)
[2024-12-05] MEDS: LIDOCAINE 5% PATCH 1 PATCH TRANSDERM (09:01)
--- NOTE | 2024-12-05 09:14 | P.PNIM_ITS ---
Progress Note: A&P Assessment and Plan (1) Compression fracture of T11 vertebra: Code(s): S22.080A - Wedge compression fracture of T11-T12 vertebra, initial encounter for closed fracture Status: Acute Assessment and Plan: Continue with pain medication and rehab evaluation. (2) Compression fracture of L1 vertebra: Code(s): S32.010A - Wedge compression fracture of first lumbar vertebra, initial encounter for closed fracture Status: Acute Assessment and Plan: Continue with pain medication and rehab evaluation. (3) Urinary tract infection: Code(s): N39.0 - Urinary tract infection, site not specified Status: Acute Assessment and Plan: Continue IV antibiotics. Wait for culture report. Plan The patient presented to the emergency department for evaluation of worsening back pain after a fall with T11 and L1 burst fractures as detailed in HPI. Labs, imaging, EKG, and all reports were personally reviewed. Imaging today shows interval progress of both fractures demonstrate near complete compression. Continue TLSO brace when out of bed. Analgesics are available as needed. Neurosurgery has been consulted. Continue ceftriaxone for urinary tract infection, pending urine culture. Vital signs have been stable and will be monitored. Her home medications will be reviewed and resumed as appropriate. Findings and treatment plan were discussed with the patient. 12/04: Patient still has severe pain, no focal deficit, numbness tingling lower extremity or urinary fecal incontinence Appreciate neurosurgeons consultation, patient will benefit from medical management per neurosurgeon's recommendation Continue PT OT Consult customer care associate, patient may need placement in senior living Subjective Date/time seen: 12/05/24 09:14 Interval history: Compression fracture vertebrae UTI Patient was seen during the morning rounds today. Patient pain is under control. No new overnight complaints. No shortness of breath or chest pain. Mood stable. Review of Systems Review of Systems: 12 systems were reviewed and are negativ e except for as per HPI. Exam Narrative: GENERAL: Pleasant, in no acute distress. Well-nourished. - EYES: EOMI. Anicteric. - HENT: Moist mucous membranes. - LUNGS: Clear to auscultation bilateral ly, no wheezing, rhonchi, or rales. - CARDIOVASCULAR: Regular rate and rhyth m. No murmur. No JVD. - ABDOMEN: Soft, non-tender and non-dist ended. No palpable masses. - EXTREMITIES: No edema. Peripheral puls es 2+. Non-tender. Tenderness of mid of spine - NEUROLOGIC: No focal neurological defi cits. CN II-XII grossly intact. - PSYCHIATRIC: Awake, Alert and oriented x 3. Appropriate mood and affect. - SKIN: No rashes or lesions. Warm. - LYMPH: No cervical lymphadenopathy. Objective Data Vital Signs Vital Signs: Vital Signs - 24 hr 12/04/24 10:11 12/04/24 14:00 12/04/24 14:34 Temperature 36.7 C Pulse Rate 77 Respiratory Rate 18 Blood Pressure 141/64 H Pulse Oximetry 95 97 Oxygen Delivery Room Air Room Air 12/04/24 20:00 12/04/24 21:25 12/05/24 06:00 Temperature 36.4 C 36.5 C Pulse Rate 65 74 Respiratory Rate 20 20 Blood Pressure 110/65 128/22 L Pulse Oximetry 95 95 Oxygen Delivery Room Air 12/05/24 06:35 Temperature Pulse Rate Respiratory Rate Blood Pressure 122/61 Pulse Oximetry Oxygen Delivery Intake/Output Intake/Output: Intake & Output 12/02/24 12/03/24 12/04/24 12/05/24 23:59 23:59 23:59 23:59 Intake Total 10 960 Balance 10 960 Meds/Results Medications: Active Medications Generic Name Dose Route Start Last Admin Trade Name Freq PRN Reason Stop Dose Admin Acetaminophen 650 mg 12/04/24 02:15 12/05/24 00:59 Acetaminophen 325 Mg Tablet PO 650 mg Q6H PRN Administration Mild Pain (1-3) or Fever Amitriptyline HCl 50 mg 12/04/24 09:00 12/05/24 09:01 Amitriptyline Hcl 25 Mg Tablet PO 50 mg DAILY RED Administration Enoxaparin Sodium 40 mg 12/06/24 09:00 Enoxaparin 40 Mg/0.4 Ml Syringe SUB-Q DAILY RED Ceftriaxone Sodium 1 gm in 50 mls @ 100 mls/hr 12/05/24 01:00 12/05/24 00:17 Rocephin 1 Gm/Ns 50 Ml IVPB 100 mls/hr Q24H RED Administration Lidocaine 1 patch 12/04/24 02:15 12/05/24 09:01 Lidocaine 5% Patch TRANSDERM 1 patch DAILY RED Administration Magnesium Citrate 150 ml 12/06/24 09:00 Magnesium Citrate 300 Ml Btl PO DAILY RED Morphine Sulfate 2 mg 12/03/24 23:19 12/05/24 04:40 Morphine Sulfate (*Crx) 2 Mg/Ml Inj IV PUSH 2 mg Q2H PRN Administration Pain Rated 7-10 Radiology Results: ITS Impressions Abdomen/Pelvis CT 12/03/24 22:17 IMPRESSION: Interval progression of the T11 vertebral body fracture demonstrating near- complete compression, vertebral plana. Interval progression of the L1 vertebral body fracture demonstrating near- complete compression, vertebral plana. Redemonstration of a large cyst within the left kidney measuring 9.6 cm in greatest dimension. Redemonstration of both intra and extrahepatic biliary ductal dilatation. Quality VTE Prophylaxis VTE prophylaxis: mechanical ordered
[2024-12-05 14:00] VITALS: BP 126/73; PULSE 82; RESP 18; TEMP 36.9; O2SAT 96
[2024-12-05] MEDS: LORazepam INJ (*CRX) 2 MG/ML VIAL 0.5 MG IV PUSH (18:50)
[2024-12-05 21:03] VITALS: O2SAT 96
[2024-12-05 21:28] VITALS: BP 118/66; PULSE 85; RESP 18; TEMP 36.3; O2SAT 96
--- NOTE | 2024-12-06 01:10 | PC.NURSE ---
Patient aggressive swinging and refusing to stay in bed, IV 0100 medication unable to be given. Hospitalist notified of patient behavior, no new orders. patient continues to be 1:1 and unable to reorient
[2024-12-06] MEDS: ACETAMINOPHEN 325 MG TABLET 650 MG PO (02:44)
[2024-12-06] MEDS: MORPHINE SULFATE (*CRX) 2 MG/ML INJ IV PUSH ×3 (03:15→15:39)
[2024-12-06 05:42] VITALS: BP 120/70; PULSE 84; RESP 18; TEMP 36.5; O2SAT 98
[2024-12-06 07:25] LABS: Hematocrit 32.6 % (37.0-47.0); Hemoglobin 10.2 g/dL (12.0-15.0); Immature Granulocyte Percent A 0.9 % (0-0.5); Lymphocytes Absolute Auto 2.24 K/mm3 (0.9-3.2); Mean Corpuscular HGB Conc 31.3 g/dl (32-36); Mean Corpuscular Hemoglobin 32.8 pg (26-34); Mean Corpuscular Volume 104.8 fl (80-100); Nucleated Red Blood Cells Absolute Auto 0.000 K/mm3 (0.0-0.012); Nucleated Red Blood Cells Perc 0.0 % (0.0-0.2); Platelet Count Result 518 k/mm3 (150-375); Red Blood Count 3.11 M/mm3 (4.2-5.4); White Blood Count 7.9 K/mm3 (4.5-10.0)
[2024-12-06] MEDS: AMITRIPTYLINE HCL 25 MG TABLET 50 MG PO (09:15)
[2024-12-06] MEDS: MAGNESIUM CITRATE 300 ML BTL 150 ML PO (09:15)
[2024-12-06] MEDS: LIDOCAINE 5% PATCH 1 PATCH TRANSDERM (09:15)
--- NOTE | 2024-12-06 11:41 | PM.IMPN ---
Progress Note: A&P Assessment and Plan (1) Compression fracture of T11 vertebra: Code(s): S22.080A - Wedge compression fracture of T11-T12 vertebra, initial encounter for closed fracture Status: Acute Assessment and Plan: Continue with pain medication and rehab evaluation. (2) Compression fracture of L1 vertebra: Code(s): S32.010A - Wedge compression fracture of first lumbar vertebra, initial encounter for closed fracture Status: Acute Assessment and Plan: Continue with pain medication and rehab evaluation. (3) Urinary tract infection: Code(s): N39.0 - Urinary tract infection, site not specified Status: Acute Assessment and Plan: Continue IV antibiotics. Wait for culture report. Plan The patient presented to the emergency department for evaluation of worsening back pain after a fall with T11 and L1 burst fractures as detailed in HPI. Labs, imaging, EKG, and all reports were personally reviewed. Imaging today shows interval progress of both fractures demonstrate near complete compression. Continue TLSO brace when out of bed. Analgesics are available as needed. Neurosurgery has been consulted. Continue ceftriaxone for urinary tract infection, pending urine culture. Vital signs have been stable and will be monitored. Her home medications will be reviewed and resumed as appropriate. Findings and treatment plan were discussed with the patient. 12/04: Patient still has severe pain, no focal deficit, numbness tingling lower extremity or urinary fecal incontinence Appreciate neurosurgeons consultation, patient will benefit from medical management per neurosurgeon's recommendation Continue PT OT Consult patient centered care specialist, patient may need placement in group home Subjective Date/time seen: 12/06/24 11:41 Interval history: Compression fracture vertebrae UTI Patient was seen during the morning rounds today. Patient pain is under control. No new overnight complaints. No shortness of breath or chest pain. Mood stable. Review of Systems Review of Systems: 12 systems were reviewed and are negative except for as per HPI. Exam Narrative: GENERAL: Pleasant, in no acute distress. Well-nourished. - EYES: EOMI. Anicteric. - HENT: Moist mucous membranes. - LUNGS: Clear to auscultation bilaterally, no wheezing, rhonchi, or rales. - CARDIOVASCULAR: Regular rate and rhythm. No murmur. No JVD. - ABDOMEN: Soft, non-tender and non-distended. No palpable masses. - EXTREMITIES: No edema. Peripheral pulses 2+. Non-tender. Tenderness of mid of spine - NEUROLOGIC: No focal neurological deficits. CN II-XII grossly intact. - PSYCHIATRIC: Awake, Alert and oriented x 3. Appropriate mood and affect. - SKIN: No rashes or lesions. Warm. - LYMPH: No cervical lymphadenopathy. Objective Data Vital Signs Vital Signs: Vital Signs - 24 hr 12/05/24 14:00 12/05/24 21:03 12/05/24 21:28 Temperature 36.9 C 36.3 C L Pulse Rate 82 85 Respiratory Rate 18 18 Blood Pressure 126/73 118/66 Pulse Oximetry 96 96 96 Oxygen Delivery Room Air 12/06/24 05:42 12/06/24 09:30 Temperature 36.5 C Pulse Rate 84 Respiratory Rate 18 Blood Pressure 120/70 Pulse Oximetry 98 Oxygen Delivery Room Air Intake/Output Intake/Output: Intake & Output 12/03/24 12/04/24 12/05/24 12/06/24 23:59 23:59 23:59 23:59 Intake Total 10 960 720 340 Balance 10 960 720 340 Meds/Results Medications: Active Medications Generic Name Dose Route Start Last Admin Trade Name Freq PRN Reason Stop Dose Admin Acetaminophen 650 mg 12/04/24 02:15 12/06/24 02:44 Acetaminophen 325 Mg Tablet PO 650 mg Q6H PRN Administration Mild Pain (1-3) or Fever Amitriptyline HCl 50 mg 12/04/24 09:00 12/06/24 09:15 Amitriptyline Hcl 25 Mg Tablet PO 50 mg DAILY RED Administration Enoxaparin Sodium 40 mg 12/06/24 09:00 12/06/24 11:34 Enoxaparin 40 Mg/0.4 Ml Syringe SUB-Q Not Given DAILY RED Ceftriaxone Sodium 1 gm in 50 mls @ 100 mls/hr 12/05/24 01:00 12/06/24 01:09 Rocephin 1 Gm/Ns 50 Ml IVPB Not Given Q24H RED Lidocaine 1 patch 12/04/24 02:15 12/06/24 09:15 Lidocaine 5% Patch TRANSDERM 1 patch DAILY RED Administration Lorazepam 0.5 mg 12/05/24 17:31 12/05/24 18:50 Lorazepam Inj (*Crx) 2 Mg/Ml Vial IV PUSH 0.5 mg BID PRN Administration Anxiety Magnesium Citrate 150 ml 06/29/25 09:00 12/06/24 09:15 Magnesium Citrate 300 Ml Btl PO 150 ml DAILY RED Administration Menthol/Methyl Salicylate 1 applic 12/06/24 09:35 Menthol 10% / Methyl Salicylate 15% 57 Gm Tube TOPICAL BID PRN Muscle/Joint Pain Morphine Sulfate 2 mg 12/03/24 23:19 12/06/24 03:15 Morphine Sulfate (*Crx) 2 Mg/Ml Inj IV PUSH 2 mg Q2H PRN Administration Pain Rated 7-10 Polyethylene Glycol 17 gm 12/06/24 09:35 Polyethylene Glycol 3350 17 Gm Powd.Pack PO QAM PRN Constipation Radiology Results: ITS Impressions Abdomen/Pelvis CT 12/03/24 22:17 IMPRESSION: Interval progression of the T11 vertebral body fracture demonstrating near-complete compression, vertebral plana. Interval progression of the L1 vertebral body fracture demonstrating near-complete compression, vertebral plana. Redemonstration of a large cyst within the left kidney measuring 9.6 cm in greatest dimension. Redemonstration of both intra and extrahepatic biliary ductal dilatation. Labs Labs: Laboratory Results - last 24 hr 12/06/24 06:52 WBC 7.9 RBC 3.11 L Hgb 10.2 L Hct 32.6 L MCV 104.8 H MCH 32.8 MCHC 31.3 L RDW 16.7 H Plt Count 518 H MPV 9.1 Immature Gran % (Auto) 0.9 H Neut % (Auto) 58.2 Lymph % (Auto) 28.3 [place] % (Auto) 10.5 H Eos % (Auto) 1.3 Baso % (Auto) 0.8 Lymph # (Auto) 2.24 [place] # (Auto) 0.8 H Eos # (Auto) 0.1 Baso # (Auto) 0.1 Abs Immat Gran (auto) 0.07 H Absolute Neuts (auto) 4.6 Absolute Nucleated RBC 0.000 Nucleated RBC % 0.0 Quality VTE Prophylaxis VTE prophylaxis: mechanical ordered
[2024-12-06] MEDS: MENTHOL 10% / METHYL SALICYLATE 15% 57 GM TUBE 1 APPLIC TOPICAL (12:13)
[2024-12-06] MEDS: ACETAMINOPHEN/CODEINE (*CRX) 300/30 MG TABLET 2 TAB PO (15:02)
[2024-12-06] MEDS: LORazepam INJ (*CRX) 2 MG/ML VIAL 0.5 MG IV PUSH (16:47)
[2024-12-07] MEDS: ACETAMINOPHEN 325 MG TABLET 650 MG PO ×2 (01:34→22:20)
[2024-12-07 06:38] VITALS: BP 135/79; PULSE 87; RESP 16; O2SAT 96
[2024-12-07] MEDS: ACETAMINOPHEN/CODEINE (*CRX) 300/30 MG TABLET 2 TAB PO ×3 (06:50→18:28)
[2024-12-07] MEDS: LIDOCAINE 5% PATCH 1 PATCH TRANSDERM (07:57)
[2024-12-07 08:00] VITALS: O2SAT 96
--- NOTE | 2024-12-07 11:13 | P.PNIM_ITS ---
Progress Note: A&P Assessment and Plan (1) Compression fracture of T11 vertebra: Code(s): S22.080A - Wedge compression fracture of T11-T12 vertebra, initial encounter for closed fracture Status: Acute Assessment and Plan: Continue with pain medication and rehab evaluation. (2) Compression fracture of L1 vertebra: Code(s): S32.010A - Wedge compression fracture of first lumbar vertebra, initial encounter for closed fracture Status: Acute Assessment and Plan: Continue with pain medication and rehab evaluation. (3) Urinary tract infection: Code(s): N39.0 - Urinary tract infection, site not specified Status: Acute Assessment and Plan: Continue IV antibiotics. Wait for culture report. Plan The patient presented to the emergency department for evaluation of worsening back pain after a fall with T11 and L1 burst fractures as detailed in HPI. Labs, imaging, EKG, and all reports were personally reviewed. Imaging today shows interval progress of both fractures demonstrate near complete compression. Continue TLSO brace when out of bed. Analgesics are available as needed. Neurosurgery has been consulted. Continue ceftriaxone for urinary tract infection, pending urine culture. Vital signs have been stable and will be monitored. Her home medications will be reviewed and resumed as appropriate. Findings and treatment plan were discussed with the patient. Patient still has severe pain, no focal deficit, numbness tingling lower extremity or urinary fecal incontinence MRI : recent burst fractures at T11 and L1.2. Mild thoracic and moderate lumbar spondylosis most notable for moderate central canal stenosis at T12-L1 and L1-L2 resulting from the retropulsion associated with the new L1 burst fracture and of the subacute L2 burst fracture post relatively recent vertebroplasty. Appreciate neurosurgeons consultation, patient will benefit from medical management per neurosurgeon's recommendation Continue PT OT may benefit from a kyphoplasty of T12-L1 and L1-L2 outpatient Discussed with patient and patient's daughter Sveta about a kyphoplasty, , provide information about Dr. Castro in [facility] for kyphoplasty and management Consult personal care assistant, patient may need placement in long-term Subjective Date/time seen: 12/07/24 11:13 Interval history: Patient pain is under control, patient has no new focal deficits. Afebrile blood pressure stable Exam Narrative: GENERAL: Pleasant, in no acute distress. Well-nourished. - EYES: EOMI. Anicteric. - HENT: Moist mucous membranes. - LUNGS: Clear to auscultation bilateral ly, no wheezing, rhonchi, or rales. - CARDIOVASCULAR: Regular rate and rhyth m. No murmur. No JVD. - ABDOMEN: Soft, non-tender and non-dist ended. No palpable masses. - EXTREMITIES: No edema. Peripheral puls es 2+. Non-tender. Tenderness of mid of spine - NEUROLOGIC: No focal neurological defi cits. CN II-XII grossly intact. - PSYCHIATRIC: Awake, Alert and oriented x 3. Appropriate mood and affect. - SKIN: No rashes or lesions. Warm. - LYMPH: No cervical lymphadenopathy. Objective Data Vital Signs Vital Signs: Vital Signs - 24 hr 12/07/24 06:38 12/07/24 08:00 Pulse Rate 87 Respiratory Rate 16 Blood Pressure 135/79 Pulse Oximetry 96 96 Oxygen Delivery Room Air Intake/Output Intake/Output: Intake & Output 12/04/24 12/05/24 12/06/24 12/07/24 23:59 23:59 23:59 23:59 Intake Total 245 080 2717 625 Balance 286 261 0958 625 Meds/Results Medications: Active Medications Generic Name Dose Route Start Last Admin Trade Name Freq PRN Reason Stop Dose Admin Acetaminophen 650 mg 12/04/24 02:15 12/07/24 01:34 Acetaminophen 325 Mg Tablet PO 650 mg Q6H PRN Administration Mild Pain (1-3) or Fever Acetaminophen/Codeine Phosphate 2 tab 12/06/24 14:20 12/07/24 06:50 Acetaminophen/Codeine (*Crx) 300/30 Mg Tablet PO 2 tab Q6H PRN Administration Pain Rated 4-6 Amitriptyline HCl 50 mg 12/04/24 09:00 12/06/24 09:15 Amitriptyline Hcl 25 Mg Tablet PO 50 mg DAILY RED Administration Enoxaparin Sodium 40 mg 12/06/24 09:00 12/07/24 09:08 Enoxaparin 40 Mg/0.4 Ml Syringe SUB-Q Not Given DAILY RED Ceftriaxone Sodium 1 gm in 50 mls @ 100 mls/hr 12/05/24 01:00 12/07/24 01:21 Rocephin 1 Gm/Ns 50 Ml IVPB 100 mls/hr Q24H RED Administration Lidocaine 1 patch 12/04/24 02:15 12/07/24 07:57 Lidocaine 5% Patch TRANSDERM 1 patch DAILY RED Administration Lorazepam 0.5 mg 12/05/24 17:31 12/06/24 16:47 Lorazepam Inj (*Crx) 2 Mg/Ml Vial IV PUSH 0.5 mg BID PRN Administration Anxiety Magnesium Citrate 150 ml 12/06/24 09:00 12/06/24 09:15 Magnesium Citrate 300 Ml Btl PO 150 ml DAILY RED Administration Menthol/Methyl Salicylate 1 applic 12/06/24 09:35 12/06/24 12:13 Menthol 10% / Methyl Salicylate 15% 57 Gm Tube TOPICAL 1 applic BID PRN Administration Muscle/Joint Pain Morphine Sulfate 2 mg 12/03/24 23:19 12/06/24 15:39 Morphine Sulfate (*Crx) 2 Mg/Ml Inj IV PUSH 2 mg Q2H PRN Administration Pain Rated 7-10 Polyethylene Glycol 17 gm 12/06/24 09:35 Polyethylene Glycol 3350 17 Gm Powd.Pack PO QAM PRN Constipation Radiology Results: ITS Impressions Abdomen/Pelvis CT 12/03/24 22:17 IMPRESSION: Interval progression of the T11 vertebral body fracture demonstrating near- complete compression, vertebral plana. Interval progression of the L1 vertebral body fracture demonstrating near- complete compression, vertebral plana. Redemonstration of a large cyst within the left kidney measuring 9.6 cm in greatest dimension. Redemonstration of both intra and extrahepatic biliary ductal dilatation.
[2024-12-07] MEDS: AMITRIPTYLINE HCL 25 MG TABLET 50 MG PO (11:20)
[2024-12-07] MEDS: MORPHINE SULFATE (*CRX) 2 MG/ML INJ IV PUSH ×2 (11:21→16:45)
[2024-12-07 14:00] VITALS: BP 116/74; PULSE 74; RESP 16; TEMP 36.7; O2SAT 99
[2024-12-07] MEDS: CEPHALEXIN 500 MG CAPSULE PO (20:45)
[2024-12-07] MEDS: LORazepam INJ (*CRX) 2 MG/ML VIAL 0.5 MG IV PUSH (20:46)
[2024-12-07 21:52] VITALS: BP 118/70; PULSE 77; RESP 16; TEMP 36.6; O2SAT 95
--- NOTE | 2024-12-08 01:53 | PC.NURSE ---
On 12/08/24, ANNETTE Downing, provided care and completed [employer] documentation on this patient with this nurse at side for assistance and questions. I have reviewed the ANNETTE Downing's documentation and agree with the findings.
--- NOTE | 2024-12-08 06:49 | PC.NURSE ---
MASTER CONTROL ENGINEER went into room to do morning vital signs. Pt. REFUSED to let her take her blood pressure and other vital signs. Pt. very adamant about not wanting blood pressure taken. Pt. set off bed alarm, wanting to get out of bed and walking into the hallway. Pt. refused to lay back in bed for weight to be done. Pt. sitting in chair with chair alarm in place.
--- NOTE | 2024-12-08 07:38 | P.PNIM_ITS ---
Progress Note: A&P Assessment and Plan (1) Compression fracture of T11 vertebra: Code(s): S22.080A - Wedge compression fracture of T11-T12 vertebra, initial encounter for closed fracture Status: Acute Assessment and Plan: Continue with pain medication and rehab evaluation. Neurosurgery consulted, recommends continued TSLO brace but no surgical intervention Follow-up in their office in the outpatient setting (2) Compression fracture of L1 vertebra: Code(s): S32.010A - Wedge compression fracture of first lumbar vertebra, initial encounter for closed fracture Status: Acute Assessment and Plan: Continue with pain medication and rehab evaluation. (3) Urinary tract infection: Code(s): N39.0 - Urinary tract infection, site not specified Status: Acute Assessment and Plan: Started IV antibiotics. Wait for culture report. Switched to p.o. antibiotics-cephalexin 500 mg p.o. q.12 Plan The patient presented to the emergency department for evaluation of worsening back pain after a fall with T11 and L1 burst fractures as detailed in HPI. Labs, imaging, EKG, and all reports were personally reviewed. Imaging today shows interval progress of both fractures demonstrate near complete compression. Continue TLSO brace when out of bed. Analgesics are available as needed. Neurosurgery has been consulted. Continue ceftriaxone for urinary tract infection, pending urine culture. Vital signs have been stable and will be monitored. Her home medications will be reviewed and resumed as appropriate. Findings and treatment plan were discussed with the patient. Patient still has severe pain, no focal deficit, numbness tingling lower extremity or urinary fecal incontinence MRI : recent burst fractures at T11 and L1.2. Mild thoracic and moderate lumbar spondylosis most notable for moderate central canal stenosis at T12-L1 and L1-L2 resulting from the retropulsion associated with the new L1 burst fracture and of the subacute L2 burst fracture post relatively recent vertebroplasty. Appreciate neurosurgeons consultation, patient will benefit from medical management per neurosurgeon's recommendation Continue PT OT may benefit from a kyphoplasty of T12-L1 and L1-L2 outpatient Discussed with patient and patient's daughter Sveta about a kyphoplasty, , provide information about Dr. Castro in [facility] for kyphoplasty and management Consult transitions rn care coordinator, patient may need placement in [facility] Subjective Date/time seen: 12/08/24 07:38 Interval history: 79-year-old female with history of chronic back pain, compression and burst fractures, dementia, depression, and anxiety who presented to the emergency department via EMS with complaints of back and pelvic pain. 12/08/2024 Patient sitting comfortably in bed at time of examination. Neuro surgery has been consulted and recommends continuing TSLO brace and following up with our office in the outpatient setting, but does not suggest any surgical intervention at this time. Patient is waiting on and we have placement at this time, working with care coordination. No other concerns or complaints. Likely discharge tomorrow if placement accepted. Review of Systems Review of Systems: 12 systems were reviewed and are negativ e except for as per HPI. Exam Narrative: GENERAL: Pleasant, in no acute distress. Well-nourished. - EYES: EOMI. Anicteric. - HENT: Moist mucous membranes. - LUNGS: Clear to auscultation bilateral ly, no wheezing, rhonchi, or rales. - CARDIOVASCULAR: Regular rate and rhyth m. No murmur. No JVD. - ABDOMEN: Soft, non-tender and non-dist ended. No palpable masses. - EXTREMITIES: No edema. Peripheral puls es 2+. Non-tender. Tenderness of mid of spine - NEUROLOGIC: No focal neurological defi cits. CN II-XII grossly intact. - PSYCHIATRIC: Awake, Alert and oriented x 3. Appropriate mood and affect. - SKIN: No rashes or lesions. Warm. - LYMPH: No cervical lymphadenopathy. Objective Data Vital Signs Vital Signs: Vital Signs - 24 hr 12/07/24 08:00 12/07/24 14:00 12/07/24 20:00 Temperature 98.0 F Pulse Rate 74 Respiratory Rate 16 Blood Pressure 116/74 Pulse Oximetry 96 99 Oxygen Delivery Room Air Room Air 12/07/24 21:52 Temperature 97.8 F Pulse Rate 77 Respiratory Rate 16 Blood Pressure 118/70 Pulse Oximetry 95 Oxygen Delivery Intake/Output Intake/Output: Intake & Output 12/05/24 12/06/24 12/07/24 12/08/24 23:59 23:59 23:59 23:59 Intake Total 770 1680 1015 250 Balance 770 1680 1015 250 Meds/Results Medications: Active Medications Generic Name Dose Route Start Last Admin Trade Name Freq PRN Reason Stop Dose Admin Acetaminophen 650 mg 12/04/24 02:15 12/07/24 22:20 Acetaminophen 325 Mg Tablet PO 650 mg Q6H PRN Administration Mild Pain (1-3) or Fever Acetaminophen/Codeine Phosphate 2 tab 12/06/24 14:20 12/07/24 18:28 Acetaminophen/Codeine (*Crx) 300/30 Mg Tablet PO 2 tab Q6H PRN Administration Pain Rated 4-6 Amitriptyline HCl 50 mg 12/04/24 09:00 12/07/24 11:20 Amitriptyline Hcl 25 Mg Tablet PO 50 mg DAILY RED Administration Cephalexin HCl 500 mg 12/07/24 21:00 12/07/24 20:45 Cephalexin 500 Mg Capsule PO 12/10/24 09:01 500 mg Q12HR RED Administration Enoxaparin Sodium 40 mg 12/06/24 09:00 12/07/24 09:08 Enoxaparin 40 Mg/0.4 Ml Syringe SUB-Q Not Given DAILY [facility] Lidocaine 1 patch 12/04/24 02:15 12/07/24 07:57 Lidocaine 5% Patch TRANSDERM 1 patch DAILY RED Administration Lorazepam 0.5 mg 12/05/24 17:31 12/07/24 20:46 Lorazepam Inj (*Crx) 2 Mg/Ml Vial IV PUSH 0.5 mg BID PRN Administration Anxiety Magnesium Citrate 150 ml 12/06/24 09:00 12/07/24 11:18 Magnesium Citrate 300 Ml Btl PO Not Given DAILY [facility] Menthol/Methyl Salicylate 1 applic 12/06/24 09:35 12/06/24 12:13 Menthol 10% / Methyl Salicylate 15% 57 Gm Tube TOPICAL 1 applic BID PRN Administration Muscle/Joint Pain Morphine Sulfate 2 mg 12/03/24 23:19 12/07/24 16:45 Morphine Sulfate (*Crx) 2 Mg/Ml Inj IV PUSH 2 mg Q2H PRN Administration Pain Rated 7-10 Polyethylene Glycol 17 gm 12/06/24 09:35 Polyethylene Glycol 3350 17 Gm Powd.Pack PO QAM PRN Constipation Radiology Results: ITS Impressions Abdomen/Pelvis CT 12/03/24 22:17 IMPRESSION: Interval progression of the T11 vertebral body fracture demonstrating near- complete compression, vertebral plana. Interval progression of the L1 vertebral body fracture demonstrating near- complete compression, vertebral plana. Redemonstration of a large cyst within the left kidney measuring 9.6 cm in greatest dimension. Redemonstration of both intra and extrahepatic biliary ductal dilatation. Quality VTE Prophylaxis VTE prophylaxis: mechanical ordered
[2024-12-08] MEDS: AMITRIPTYLINE HCL 25 MG TABLET 50 MG PO (08:20)
[2024-12-08] MEDS: CEPHALEXIN 500 MG CAPSULE PO ×2 (08:20→20:19)
[2024-12-08] MEDS: ACETAMINOPHEN 325 MG TABLET 650 MG PO (08:20)
[2024-12-08] MEDS: MAGNESIUM CITRATE 300 ML BTL 150 ML PO (08:25)
--- NOTE | 2024-12-08 08:35 | PCOTNOTE ---
Patient is angry and states she should not be here anymore, she wants to leave and does not need therapy. Patient states she will only talk to the doctor and let me leave. Patient will not participate in any activity at this time.
[2024-12-08] MEDS: ACETAMINOPHEN/CODEINE (*CRX) 300/30 MG TABLET 2 TAB PO ×2 (12:30→21:07)
[2024-12-08 13:32] VITALS: BP 109/78; PULSE 91; RESP 18; TEMP 36.8; O2SAT 95
[2024-12-08] MEDS: LORazepam INJ (*CRX) 2 MG/ML VIAL 0.5 MG IV PUSH (14:21)
[2024-12-08] MEDS: MORPHINE SULFATE (*CRX) 2 MG/ML INJ IV PUSH ×2 (14:22→18:46)
--- NOTE | 2024-12-08 14:40 | PCOTNOTE ---
Attempted again this P.M. Patient in the bed, seems to be having increased confusion and still stating she is not doing anything but leaving today. Patient states she is not being taken care of, and no one listens to her. RN notified and is aware and has addressed her concerns to the best of her knowledge.
[2024-12-08] MEDS: NICOTINE (*PBKC) 21 MG PATCH 1 PATCH TRANSDERM (20:19)
[2024-12-08 22:00] VITALS: BP 125/77; PULSE 88; RESP 20; TEMP 37; O2SAT 96
[2024-12-09] MEDS: ACETAMINOPHEN/CODEINE (*CRX) 300/30 MG TABLET 2 TAB PO ×2 (02:23→11:25)
[2024-12-09] MEDS: ACETAMINOPHEN 325 MG TABLET 650 MG PO (05:29)
[2024-12-09 06:00] VITALS: BP 122/80; PULSE 69; RESP 18; TEMP 36.8; O2SAT 95
[2024-12-09 08:00] VITALS: O2SAT 95
[2024-12-09] MEDS: LIDOCAINE 5% PATCH 1 PATCH TRANSDERM (08:29)
[2024-12-09] MEDS: CEPHALEXIN 500 MG CAPSULE PO (10:15)
--- NOTE | 2024-12-09 12:47 | P.DS_ITS ---
DS: Admitting Diagnosis Discharge Date 12/09/2024 Admitting Diagnosis Compression fracture of T11 vertebra DS: Discharge Diagnosis Discharge Diagnosis (1) Compression fracture of T11 vertebra: Code(s): S22.080A - Wedge compression fracture of T11-T12 vertebra, initial encounter for closed fracture Status: Acute (2) Compression fracture of L1 vertebra: Code(s): S32.010A - Wedge compression fracture of first lumbar vertebra, initial encounter for closed fracture Status: Acute (3) Urinary tract infection: Code(s): N39.0 - Urinary tract infection, site not specified Status: Acute DS: Summary Hospital Course Reason for hospitalization: Back and pelvic pain Hospital Course: This is an 79-year-old female with history of chronic back pain, compression and burst fractures, dementia, depression, and anxiety who presented to the [facility] via EMS with complaints of back and pelvic pain. She has chronic back pain and a history of kyphoplasty and epidural injections per Dr. Mast. Her back pain has been worse after she sustained a fall on 11/16/2024. At that time she was seen in the ED and imaging shows acute burst fractures at T11 and L1. She saw the nurse practitioner for Neurosurgery who recommended immobilization with TLSO brace, heat/ice, acetaminophen, NSAIDs, tramadol, and topical agents for pain control. She also saw Dr. Denny for ongoing right hip pain and he gave her a Kenalog injection about a week and a half ago. Unfortunately, her pain has been getting worse every day. She is able to stand and ambulate which seems to exacerbate the pain some. She has difficulties describing the pain but states that it is severe and occasionally radiates down her legs. She denies saddle anesthesia, urinary retention, bowel incontinence, focal weakness, and paresthesias. She also denies fever, cold and flu symptoms, chest pain, pleuritic pain, shortness of breath, nausea, and vomiting. Perhaps some mild dysuria but nothing significant. In the ED: Imaging showed interval progression of T11 and L1 vertebral body fractures demonstrating near complete compression, vertebra plana. She received hydromorphone 0.5 mg IV and ceftriaxone 1 g for suspected urinary tract infection and she is being admitted in this setting for further treatment and neurosurgery consultation. Neuro surgery consulted regarding compression fracture of T11 vertebra, recommend continuing TLSO brace when out of of bed, but no other surgical intervention at this time. PT/OT recommends continued rehab care through SNF. Patient is a been accepted at [place]. Plan for discharge at this time with appropriate follow-up in the outpatient setting with Neurosurgery. She will continue on Keflex upon discharge for UTI. Status at Discharge Functional status at discharge: independent ambulation Overall status at discharge: patient is progressing back to baseline Time Spent with Patient Time attestation: Total time spent providing and/or coordinating discharge services: 41 Exam Narrative: GENERAL: Pleasant, in no acute distress. Well-nourished. - EYES: EOMI. Anicteric. - HENT: Moist mucous membranes. - LUNGS: Clear to auscultation bilateral ly, no wheezing, rhonchi, or rales. - CARDIOVASCULAR: Regular rate and rhyth m. No murmur. No JVD. - ABDOMEN: Soft, non-tender and non-dist ended. No palpable masses. - EXTREMITIES: No edema. Peripheral puls es 2+. Non-tender. Tenderness of mid of spine - NEUROLOGIC: No focal neurological defi cits. CN II-XII grossly intact. - PSYCHIATRIC: Awake, Alert and oriented x 3. Appropriate mood and affect. - SKIN: No rashes or lesions. Warm. - LYMPH: No cervical lymphadenopathy. DS: Data Data Completed and Pending Labs on day of discharge: Labs from last 24 hours 12/09/24 12:40 SARS-CoV-2 RNA (RT-PCR) Pending Discharge Plan Discharge Attending physician on discharge: Marycarmen Whyte Consulting providers: Tan Rogers; Oswaldo Rothman Discharging Clinician: Oswaldo Rothman Anticipated Discharge Date/Time: 12/09/24 12:40 Patient Disposition: SNF Activity: as tolerated Diet: as tolerated Discharge Instructions: Discharge disposition: Stable Take medications as prescribed. You will be prescribed Keflex for 3 additional doses. Monitor blood pressures Take caution while standing, rising, or moving Change positions slowly taking a break between each position change If you standing feel dizzy sit back down and take a break Encouraged to continue with yearly vaccinations Return to the emergency department if he developed sudden shortness of breath, chest pain, nausea, vomiting, upset stomach or intractable diarrhea Return to the emergency department if you develop fever greater than 101.5 Follow-up with the primary care physician within 1-2 weeks Thank you for [facility] for your healthcare needs Patient Instructions: Antibiotic Form Patient Language: Malay Stand Alone Forms: General Discharge Information Follow-up/Referrals: Gume Bermudez MD [Primary Care Provider] - Discharge Medications: New cephalexin 500 mg capsule 500 mg PO Q12H Qty: 3 0RF Continued magnesium citrate [OneLAX Magnesium Citrate] Solution 150 ml PO DAILY Journavx 50 mg tablet 50 mg PO BID Qty: 30 0RF amitriptyline 50 mg tablet 50 mg PO DAILY nitroglycerin 0.4 mg tablet, sublingual 0.4 mg sublingual Q5M PRN (Reason: chest pain) tizanidine 2 mg tablet 2 mg PO TID PRN (Reason: muscle spasticity) Qty: 30 0RF tramadol 50 mg tablet 50 mg PO Q6H PRN (Reason: back pain) Qty: 35 0RF Date of admission: 12/04/24 08:18 Primary Care Provider: Gume Bermudez Admitting Provider: Malgorzata Almaguer Attending physician on admission: Malgorzata Almaguer Condition: Stable Quality VTE Prophylaxis VTE prophylaxis: mechanical ordered
[2024-12-09 13:22] LABS: SARS-CoV-2 RNA PCR Negative (Negative)
== END 2024-12-09 15:34 | DRG 552 ==
LOC: ANHED 23:28 → ANH3MEDSUR 12-04 00:23
PROVIDERS: Internal Medicine; Physician Assistant; Admitting Provider Internal Medicine; Emergency Provider Emergency Medicine; PCP Internal Medicine; Visit Provider Physician Assistant
DX: S32.011A Stable burst fracture of first lumbar vertebra, initial encounter for closed fracture (principal); S22.081A Stable burst fracture of T11-T12 vertebra, initial encounter for closed fracture; N39.0 Urinary tract infection, site not specified; F03.90 Unspecified dementia, unspecified severity, without behavioral disturbance, psychotic disturbance, mood disturbance, and anxiety; F32.A Depression, unspecified; F41.9 Anxiety disorder, unspecified; E78.5 Hyperlipidemia, unspecified; F17.210 Nicotine dependence, cigarettes, uncomplicated; Z96.641 Presence of right artificial hip joint; Z96.652 Presence of left artificial knee joint; Z90.49 Acquired absence of other specified parts of digestive tract
CPT/HCPCS: 36415; 74177; 80053; 81001; 83605; 83690; 85025; 85027; 85610; 85730; 87086; 87186; 87635; 96374; 96375; 97110; 97116; 97162; 97165; 97530; 97535; 99285; A9270; G0378; J0696; J1171; J2060; J2270; J2470; Q9967

== ENCOUNTER 2024-12-12 02:14 | Emergency (ER) | payer MEDICARE, SELFPAY ==
[2024-12-12] VITALS (31 sets, daily range): BP systolic 127–160; BP diastolic 64–85; PULSE 72–87; RESP 12–30; TEMP 36.8; O2SAT 92–98
--- NOTE | ~2024-12-12 | CT_ITS ---
CLINICAL INDICATION: Abdominal pain COMPARISON: 12/03/2024. TECHNIQUE: Multiple contiguous axial images of the abdomen and pelvis were performed following the ad ministration of with 100 mL Omnipaque-350 intravenous contrast The dose-length product (DLP) was 268.61 mGy-cm. Automated exposure control and iterative reconstruction technique were employed. FINDINGS/OBSERVATIONS: Visualized lower thorax: Dependent atelectasis. The remainder of the bilateral lung bases are clear. The heart is enlarged, without pericardial effusion. Small hiatal hernia is present. Liver: The liver demonstrates homogeneous enhancement and is not enlarged. Gallbladder and biliary system: The gallbladder is surgically absent. Redemonstration of significant intra hepatic and extra hepatic biliary ductal dilatation, likely a re servoir effect from prior cholecystectomy. This finding is unchanged from 12/03/2024, 11/08/2024 and 02/08, although to a lesser extent. Pancreas: The pancreas enhances homogeneously with mild ductal dilatation, unchanged. Spleen: The spleen enhances homogeneously and is not enlarged. Kidneys: Redemonstration of multiple fluid attenuation foci within the bilateral kidneys, the largest within the lower pole of the left kidney measuring 8.7 x 8.4 x 8.9 cm (anterior to posterior x media l to lateral x cranial to caudal dimension). The bilateral kidneys enhance symmetrically without hydronephrosis or renal calculi. Adrenal glands: Unremarkable. Gastrointestinal tract: Interval development of significant mural thickening within the distal stomach and proximal duodenum, an interval change when compared with 12/03/2024. Appendix: The appendix is not definitively visualized. However, no pericecal inflammatory change is identified suggest the presence of acute appendicitis. Vasculature: Unremarkable. Lymph nodes: No pathologically enlarged or morphologically suspicious lymph nodes within the retroperitoneum or at the root of the mesentery. Pelvic structures: The bladder is only minimally distended, and otherwise unremarkable. The uterus is either surgically absent or significantly atrophic. Body wall and musculoskeletal: Redemonstration of T11, L1 and also L2 compression fractures, unchanged from 12/03/2024. IMPRESSION: Mural thickening and surrounding inflammatory change within the distal stomach and proximal duodenum, an interval change from prior. Significant common bile duct dilatation, also unchanged. The remainder of the examination is otherwise unremarkable. Reviewed, dictated and finalized at location A.
--- NOTE | 2024-12-12 02:24 | ED.ABDPAIN ---
HPI - Abdominal Pain General Chief Complaint: Abdominal Pain Stated Complaint: Abd pain x 1 hr Time Seen by Provider: 12/12/24 02:16 History of Present Illness HPI narrative: 79-year-old female with history of chronic back pain, chronic pelvic pain, compressions and burst fractures of T11 and L1 which are chronic. She has a history of dementia. She presents from her [place] [facility] facility for concerns of right lower quadrant abdominal pain that started 1 hour ago. When asked if she got any pain medicines she declined any pain medications at the facility but would like some now. No nausea, vomiting, diarrhea, constipation. Has had previous evaluations for chronic back and pelvic pain without any findings. She was recently discharged 2 days ago after admission for rehab placement after she was having worsening pain from her subacute to chronic vertebral fractures. She wears a TLSO brace with ambulation. No neuropathy, weakness, saddle anesthesias, incontinence or urinary retention. No trauma or injury. Related Data Home Medications ?Medication ?Instructions ?Recorded ?Confirmed ?Last Taken ?Type magnesium citrate (OneLAX 150 ml PO DAILY 10/29/24 12/04/24 Unknown History Magnesium Citrate oral solution) amitriptyline 50 mg tablet 50 mg PO DAILY 12/04/24 12/04/24 12/03/24 History nitroglycerin 0.4 mg sublingual 0.4 mg sublingual Q5M PRN chest 12/04/24 12/04/24 Unknown History tablet pain Allergies Allergy/AdvReac Type Severity Reaction Status Date / Time No Known Allergies Allergy Verified 11/24/24 07:13 Review of Systems Review of Systems: As reviewed above in HPI [facility] Past Medical History Medical History Arthritis Gastroesophageal reflux disease Degenerative joint disease Arteriosclerotic heart disease Chronic pain of left heel Cognitive changes Chronic fatigue Prediabetes Vitamin D deficiency Shingles Tobacco abuse Anxiety and depression Hyperlipidemia Hearing loss 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 Code status: Full code. Smoking packs per day: 1 Smoking cigarettes per day: 20.0 Years smoked: 30 Smoking pack-years: 30.00 Smoking status: Heavy tobacco smoker Tobacco type: cigarettes Alcohol intake: current Substance use: never Substance use type: does not use Do You Feel Safe in your Home?: Yes Lack of Transportation: No Lack of Food: Never True Current Housing: I Have Housing Concerned About Future Housing: No Difficulty Paying Gas/Electric Bills: No Difficulty Paying for Meds: No Currently Unemployed: No Education: Bachelor's Degree Difficulty w/ Childcare or Family Care: No Living arrangements: alone Spiritual care concerns: No Exam Narrative: GENERAL: [Well-appearing, well-nourished, and in no acute distress.] HEAD: [Normocephalic, atraumatic.] EYES: [PERRLA and EOMI.] ENT: Nares clear, no rhinorrhea or epistaxis. Mucous membranes moist. NECK: Supple. CHEST: [Clear to auscultation. No respiratory distress.] HEART: [Regular rate and rhythm]. No murmur heard. [Normal peripheral pulses.] ABDOMEN: [Soft, nondistended], mildly reproducible pain in the right lower quadrant without peritonitis, [No rigidity or guarding] EXTREMITIES: Normal range of motion. [No edema.] SKIN: Warm, dry, no rash. NEURO: [No focal deficits]. Alert and oriented [x3.] PSYCH: [Normal mood and affect.] Course Vital Signs Vital signs: Vital Signs Temperature 36.8 C 12/12/24 02:14 Pulse Rate 72 12/12/24 02:14 Respiratory Rate 13 12/12/24 02:14 Pulse Oximetry 95 12/12/24 02:14 Oxygen Delivery Room Air 12/12/24 02:14 Temperature 36.8 C 12/12/24 02:14 Pulse Rate 82 12/12/24 07:15 Respiratory Rate 19 12/12/24 07:15 Blood Pressure 145/85 H 12/12/24 07:15 Pulse Oximetry 93 12/12/24 07:15 Oxygen Delivery Room Air 12/12/24 02:14 MDM - Abdominal Pain MDM Narrative Medical decision making narrative: 79-year-old female with history of chronic back pain, chronic pelvic pain, compressions and burst fractures of T11 and L1 which are chronic. She has a history of dementia. She presents from her [place] [facility] facility for concerns of right lower quadrant abdominal pain that started 1 hour ago. When asked if she got any pain medicines she declined any pain medications at the facility but would like some now. No nausea, vomiting, diarrhea, constipation. Has had previous evaluations for chronic back and pelvic pain without any findings. She was recently discharged 2 days ago after admission for rehab placement after she was having worsening pain from her subacute to chronic vertebral fractures. She wears a TLSO brace with ambulation. No neuropathy, weakness, saddle anesthesias, incontinence or urinary retention. No trauma or injury. Patient appears in no acute distress, pleasant and cooperative and laughing throughout the examination. She has normal vital signs and is afebrile here minimally reproducible pain with palpation of the right lower quadrant. Possibilities for gastritis, colitis, appendicitis, intra-abdominal infection or abscess, subacute injury or trauma from her previous falls. No new injuries. No red flag signs or symptoms on examination or history. CT abdomen pelvis with contrast ordered, CBC, CMP lipase, urinalysis obtained she was give morphine for analgesia and re-evaluated. CT scan report shows chronic appearing inflammatory changes of the distal stomach wall which is seen on prior scans over the last month where she has a known peptic ulcer without perforation. She also has dilated biliary tree which is chronic and seems stable from her previous multiple CT scans this month from 11/08 and 12/03 without any interval changes and likely secondary to reservoir effect from prior cholecystectomy per radiology's interpretation. Patient is afebrile, does not have any pain in the right upper quadrant, scans with stable biliary dilation on multiple scans, and has unremarkable biliary labs so I do not suspect any acute pathology in this region at this time. Remaining CT scan shows no bowel obstructions, no signs of any appendicitis and no fracture. She does have large renal cysts left worse than right that appears stable from previous CT scans as well. Overall no definitive findings or any concerning features to suggest acute pathology for her symptomatology. She was re-evaluated with pain controlled and still hemodynamically stable with unremarkable labs. She will be discharged back to her [place] [facility] facility for continued care and given return precautions and primary provider follow-up as well as GI referral. Medical Records Attestation: I reviewed the patient's medical records. Lab Data Attestation: I reviewed the patient's lab results. 12/12/24 02:20 12/12/24 02:20 Labs: Lab Results 12/12/24 12/12/24 Range/Units 02:20 02:27 WBC 8.5 (4.5-10.0) K/mm3 RBC 3.23 L (4.2-5.4) M/mm3 Hgb 10.5 L (12.0-15.0) g/dL Hct 34.0 L (37.0-47.0) % MCV 105.3 H (80-100) fl MCH 32.5 (26-34) pg MCHC 30.9 L (32-36) g/dl RDW 16.1 H (11.5-14.5) % Plt Count 455 H (150-375) k/mm3 MPV 8.9 (7.4-10.4) fl Immature Gran % (Auto) 0.4 (0-0.5) % Neut % (Auto) 71.8 (45.5-73.1) % Lymph % (Auto) 18.6 (18.3-44.2) % [place] % (Auto) 7.4 (2.6-8.5) % Eos % (Auto) 1.1 (0-4.4) % Baso % (Auto) 0.7 (0.2-1.2) % Lymph # (Auto) 1.58 (0.9-3.2) K/mm3 [place] # (Auto) 0.6 (0.1-0.6) K/mm3 Eos # (Auto) 0.1 (0-0.3) K/mm3 Baso # (Auto) 0.1 (0.0-0.1) K/mm3 Abs Immat Gran (auto) 0.03 (0.00-0.031) K/mm3 Absolute Neuts (auto) 6.1 (1.3-6.7) K/mm3 Absolute Nucleated RBC 0.000 (0.0-0.012) K/mm3 Nucleated RBC % 0.0 (0.0-0.2) % Sodium 138 (137-145) mmol/L Potassium 3.8 (3.4-5.0) mmol/L Chloride 108 H (98-107) mmol/L Carbon Dioxide 26 (22-30) mmol/L Anion Gap 4 (4-12) mmol/L BUN 15 (7-17) mg/dL Creatinine 0.68 L (0.7-1.0) mg/dL Estim Creat Clear Calc 45 ml/min Estimated GFR > 60 (59 - ) Glucose 99 (65-110) mg/dL Calcium 8.5 (8.4-10.2) mg/dL Total Bilirubin 0.2 (0.2-1.3) mg/dL AST 24 (14-36) U/L ALT 11 (6-35) U/L Alkaline Phosphatase 122 (38-126) U/L Total Protein 5.8 L (6.3-8.2) g/dL Albumin 3.0 L (3.5-5.1) g/dL Lipase 26 (23-300) U/L Urine Color Yellow (Yellow) Urine Appearance Clear (Clear) Urine pH 8.0 (5.0-9.0) Ur Specific [place] 1.015 (1.001-1.035) Urine Protein 2+ H (Negative) mg/dL Urine Glucose (UA) Negative (Negative) mg/dL Urine Ketones Negative (Negative) mg/dL Ur Blood (Man) 1+ H (Negative) Urine Nitrate Negative (Negative) Urine Bilirubin Negative (Negative) Urine Urobilinogen 0.2 (<2.0) mg/dL Add Ur Microanalysis Reviewed Leukocyte Esterase Rfl Negative (Negative) RY/UL Urine RBC 11-20 H (0-2) /hpf Urine WBC 0-5 (0-3) /hpf Ur Squamous Epith Cells None seen (Few) /hpf Urine Bacteria None seen /hpf Urine Casts 0-2 Imaging Data Attestation: I personally reviewed and interpreted this imaging study as follows: My impression: CT scan report shows chronic appearing inflammatory changes of the distal stomach wall which is seen on prior scans over the last month where she has a known peptic ulcer without perforation. She also has dilated biliary tree which is chronic and seems stable from her previous multiple CT scans this month from 11/08 and 12/03 without any interval changes. Chronic renal cysts left worse than right. Radiologist's impression: ITS Impressions Abdomen/Pelvis CT 12/12/24 08:06 IMPRESSION: Mural thickening and surrounding inflammatory change within the distal stomach and proximal duodenum, an interval change from prior. Significant common bile duct dilatation, also unchanged. The remainder of the examination is otherwise unremarkable. Discharge Plan Discharge Clinical Impression: Abdominal pain, right lower quadrant, Duodenal ulcer, Compression fracture of T11 vertebra, Compression fracture of L1 vertebra Chronic low back pain Qualifiers: Back pain laterality: bilateral Sciatica presence: with sciatica Sciatica laterality: bilateral sciatica Qualified Code(s): M54.42 - Lumbago with sciatica, left side Patient Disposition: Home Condition: Stable Instructions: Antibiotic Form Additional Instructions: No acute findings on your CT scan to explain your symptoms, but no urgent or emergent concerns are identified and your laboratory studies are all normal. You will have to follow-up with your primary care provider as well as a GI doctor which will refer you to. Will also prescribe you Protonix to be taken daily for ulcers and Carafate q6h for ulcers. Take your pain medicines that the nursing facility can administer for you for any residual symptoms, return with any new or worsening concerns at any time. Follow up on outpatient basis. Patient Language: German Prescriptions: New pantoprazole [Protonix] 20 mg tablet,delayed release (DR/EC) 40 mg PO HS 28 Days Qty: 56 0RF sucralfate [Carafate] 1 gram tablet 1 g PO Q6H 10 Days Qty: 40 0RF sucralfate [Carafate] 1 gram tablet 1 g PO Q6H 10 Days Qty: 40 0RF pantoprazole [Protonix] 20 mg tablet,delayed release (DR/EC) 40 mg PO HS 28 Days Qty: 56 0RF No Action magnesium citrate [OneLAX Magnesium Citrate] Solution 150 ml PO DAILY Journavx 50 mg tablet 50 mg PO BID Qty: 30 0RF amitriptyline 50 mg tablet 50 mg PO DAILY nitroglycerin 0.4 mg tablet, sublingual 0.4 mg sublingual Q5M PRN (Reason: chest pain) cephalexin 500 mg capsule 500 mg PO Q12H Qty: 3 0RF acetaminophen-codeine 300-30 mg Tablet 2 tablet PO Q6H PRN (Reason: Pain Rated 4-6) Qty: 14 0RF tizanidine 2 mg tablet 2 mg PO TID PRN (Reason: muscle spasticity) Qty: 30 0RF tramadol 50 mg tablet 50 mg PO Q6H PRN (Reason: back pain) Qty: 35 0RF Follow-up/Referrals: Gume Bermudez MD [Primary Care Provider] - Edi Carty MD [Physician] - 1 Week (Chronic biliary tract dilation and duodenal ulcer) Time of Disposition: 04:32
[2024-12-12] MEDS: ONDANSETRON INJ 4 MG/2 ML VIAL IV PUSH (02:32)
[2024-12-12] MEDS: MORPHINE SULFATE (*CRX) 2 MG/ML INJ IV PUSH (02:32)
[2024-12-12] MEDS: LACTATED RINGERS 1,000 ML 999 ML IV CONT (02:32)
[2024-12-12 02:37] LABS: Hematocrit 34.0 % (37.0-47.0); Hemoglobin 10.5 g/dL (12.0-15.0); Immature Granulocyte Percent A 0.4 % (0-0.5); Lymphocytes Absolute Auto 1.58 K/mm3 (0.9-3.2); Mean Corpuscular HGB Conc 30.9 g/dl (32-36); Mean Corpuscular Hemoglobin 32.5 pg (26-34); Mean Corpuscular Volume 105.3 fl (80-100); Nucleated Red Blood Cells Absolute Auto 0.000 K/mm3 (0.0-0.012); Nucleated Red Blood Cells Perc 0.0 % (0.0-0.2); Platelet Count Result 455 k/mm3 (150-375); Red Blood Count 3.23 M/mm3 (4.2-5.4); White Blood Count 8.5 K/mm3 (4.5-10.0)
[2024-12-12 02:43] LABS: Add Urine Microscopic? YES; Appearance Urine Clear (Clear); Glucose Urine UA Negative (Negative); Leukocyte Esterase Ur Negative LEU/UL (Negative); Need Manual Microscopic Reviewed; Nitrate Urine Negative (Negative); Non Pathogenic Casts 0-2; Specific Grav Ur 1.015 (1.001-1.035)
[2024-12-12 02:45] LABS: Alanine Aminotransferase 11 U/L (6-35); Albumin Level 3.0 g/dL (3.5-5.1); Alkaline Phosphatase 122 U/L (38-126); Anion Gap 4 mmol/L (4-12); Aspartate Amino Transferase 24 U/L (14-36); Bilirubin,Total 0.2 mg/dL (0.2-1.3); Blood Urea Nitrogen 15 mg/dL (7-17); Calcium 8.5 mg/dL (8.4-10.2); Carbon Dioxide 26 mmol/L (22-30); Chloride 108 mmol/L (98-107); Estimated CRCL calculation 45 ml/min; Estimated Glomerular Filt Rate > 60; Glucose 99 mg/dL (65-110); Lipase 26 U/L (23-300); Potassium 3.8 mmol/L (3.4-5.0); Sodium 138 mmol/L (137-145); Total Protein 5.8 g/dL (6.3-8.2)
--- OUTSIDE RECORDS SUMMARY | 2024-12-12 02:54 | XMS_ITS | Referral Summary ---
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 Gender Identity Not on file Sexual Orientation Not on file Last Filed Vital Signs Vital Sign Reading Time Taken Comments Blood Pressure 132/80 09/26/2017 9:48 AM CDT Pulse 71 09/26/2017 9:48 AM CDT Temperature - - Respiratory Rate 18 09/26/2017 9:48 AM CDT Oxygen Saturation 93% 08/13/2017 12:10 PM CONCRETE CURER Inhaled Oxygen Concentration - - Weight 61.7 kg (136 lb) 09/26/2017 9:48 AM CDT Height 157.5 cm (5' 2) 09/26/2017 9:48 AM CDT Body Mass Index 24.87 09/26/2017 9:48 AM CDT Plan of Treatment Not on file Insurance [facility] INSURANCE MEDICARE [employer] Care Teams Salvage Mechanic Relationship Specialty Start Date End Date Gume Bermudez MD [address] [place], [place] [id number] PCP - General Internal Medicine 08/13/17
--- OUTSIDE RECORDS SUMMARY | 2024-12-12 02:54 | XMS_ITS | Clinical Summary ---
Author Organization [facility] [place] [address] Address [address] [place] [address] Care Team Providers Care Chauffeur Motorbus Name Role Phone Gume Bermudez MD Primary Care Provider [phone] Allergies Active Allergy Reactions Criticality Noted Date [...] Type Department Care Team Description 11/18/[address] [facility] Department of Psychiatry [address] [facility] [address] [place] [address] Freedom Hill MD 11/17/[address] 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 Gender Identity Not on file Sexual Orientation Not on file Obstetrics History Last Filed Vital Signs Vital Sign Reading Time Taken Comments Blood Pressure 132/80 09/26/2017 9:48 AM CDT Pulse 71 09/26/2017 9:48 AM CDT Temperature - - Respiratory Rate 18 09/26/2017 9:48 AM CDT Oxygen Saturation 93% 08/13/2017 12:10 PM MEDICAL SECRETARY RECEPTIONIST Inhaled Oxygen Concentration - - Weight 61.7 kg (136 lb) 09/26/2017 9:48 AM CDT Height 157.5 cm (5' 2) 09/26/2017 9:48 AM CDT Body Mass Index 24.87 09/26/2017 9:48 AM CDT Plan of Treatment Health Maintenance Due Date Last Done Comments Depression Screening 1945 Osteoporosis Screening-Bone Density Scan 1945 Hepatitis B Screening 1962 Zoster Vaccine (1 of 2) 1994 Well Visit 65+ 2009 Fall Risk Assessment 09/26/2018 09/26/2017 Covid-19 Vaccine (2023-2 5 season) 2024 05/18/2022, 12/26/2021, 05/01/2021, Additional history exists Influenza Vaccine (#1) 2025 04/12/2022, 2019 DTaP/Tdap/Td Vaccine (2 - Td or Tdap) 08/30/2033 08/31/2023 Pneumococcal vaccine 65+ Completed 05/18/2022, 02/08 Insurance [facility] INSURANCE MEDICARE [facility] INSURANCE MEDICARE Care Teams Chauffeur Motorbus Relationship Specialty Start Date End Date Gume Bermudez MD [address] [facility] [address] [place] [address] PCP - General Internal Medicine 08/13/17
--- OUTSIDE RECORDS SUMMARY | 2024-12-12 02:54 | XMS_ITS | Encounter Summary ---
Author Organization [facility] Healthcare Address [address] [place] [address] Care Team Providers Care Warm In Worker Name Role Phone Gume Bermudez MD Primary Care Provider [phone] Encounter Details Date Type Department Care Team (Late st Contact Info) Description 08/15/2017 Orders Only [facility] Health Information Management [address] [place] [id number] Scanning, Provider Social History Tobacco Use Types Packs/Day Years Used Date Smoking Tobacco: Every Day Cigarettes Smokeless Tobacco: Never Alcohol Use Standard Drinks/Week Comments No 0 (1 standard drink = 0.6 oz pur e alcohol) Comments Unknown Sex and Gender Information Value Date Recorded Sex Assigned at Not on file 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
--- OUTSIDE RECORDS SUMMARY | 2024-12-12 02:54 | XMS_ITS | Encounter Summary ---
Author Organization [facility] Healthcare Address [address] [place] [address] Care Team Providers Care Zyglo Inspector Name Role Phone Gume Bermudez MD Primary Care Provider [phone] Encounter Details Date Type Department Care Team (Late st Contact Info) Description 08/26/2017 Orders Only [facility] Information Management [address] [place] [id number] Scanning, Provider Social History Tobacco Use Types Packs/Day Years Used Date Smoking Tobacco: Every Day Cigarettes Smokeless Tobacco: Never Alcohol Use Standard Drinks/Week Comments No 0 (1 standard drink = 0.6 oz pur e alcohol) Comments Unknown Sex and Gender Information Value Date Recorded Sex Assigned at Not on file Legal 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
--- OUTSIDE RECORDS SUMMARY | 2024-12-12 02:54 | XMS_ITS | Clinical Summary ---
Author Organization [facility] Address [address] [place] [address] Phone Care Team Providers Care Monitoring And Evaluation Advisor Name Role Phone Gume Bermudez MD Primary Care Provider [phone] Social History Tobacco Use Types Packs/Day Years [...] / Low and Medium Risk (1 of 2 - PCV) 1994 Influenza Vaccine (Season Ended) 2025 Insurance MEDICARE [employer] [place] [id number] Care Teams Monitoring And Evaluation Advisor Relationship Specialty Start Date End Date Gume Bermudez MD [address] [facility] [address] [facility] [address] [place] [id number] PCP - General Internal Medicine 01/15/22
--- NOTE | 2024-12-12 04:35 | PC.NURSE ---
vm left for staff to return a call to give nurse to nurse report.
--- NOTE | 2024-12-12 05:31 | PC.NURSE ---
Received return call from Ofelia at [facility]. Report given. Requested pharmacy be changed to [facility]. States she is unsure the city. Changed per her request and all other questions answered for report.
--- NOTE | 2024-12-12 07:42 | PC.NURSE ---
Patient appears agitated and confused this morning, asking what the plan is because she called an ambulance to get out of the trap and she want's to go home and not rehab because I'm not homeless patient states that no one is listening to her, that she has pain and problems, patient updated that her CT results were reassuring per Dr. Durán.
--- NOTE | 2024-12-12 07:57 | PC.NURSE ---
patient is a/o x 4 at this time, stating that she will not be going back to [facility] because it is a trap that no human should be at
--- NOTE | 2024-12-12 07:58 | PC.NURSE ---
Called patients daughter to discuss patient refusing to go back via EMS. daughter didn't answer, voice mail was left on daughters phone.
--- NOTE | 2024-12-12 08:50 | PC.NURSE ---
Discussed with patients son the patient not wanting to return to [facility], Alphonso from Care Coordination came to spoke with the patient and called and talked with the son, patient agreeable to go back to [facility] after son told her that if she chooses to sign out he and his sister will let her do what she wants to do but will no longer be there to help her.
== END 2024-12-12 09:17 ==
PROVIDERS: Emergency Provider Student in an Organized Health Care Education/Training Program; PCP Internal Medicine
DX: R10.31 Right lower quadrant pain (principal); K26.9 Duodenal ulcer, unspecified as acute or chronic, without hemorrhage or perforation; M48.55XD Collapsed vertebra, not elsewhere classified, thoracolumbar region, subsequent encounter for fracture with routine healing; F03.90 Unspecified dementia, unspecified severity, without behavioral disturbance, psychotic disturbance, mood disturbance, and anxiety; I70.0 Atherosclerosis of aorta; E55.9 Vitamin D deficiency, unspecified; E78.5 Hyperlipidemia, unspecified; R73.03 Prediabetes; K21.9 Gastro-esophageal reflux disease without esophagitis; M19.90 Unspecified osteoarthritis, unspecified site; F41.9 Anxiety disorder, unspecified; F32.A Depression, unspecified; F17.210 Nicotine dependence, cigarettes, uncomplicated; Z96.641 Presence of right artificial hip joint; Z96.652 Presence of left artificial knee joint; Z90.49 Acquired absence of other specified parts of digestive tract; N28.1 Cyst of kidney, acquired
CPT/HCPCS: 36415; 74177; 80053; 81001; 83690; 85025; 96361; 96374; 96375; 99284; J2270; J2405; J7120; Q9967

== ENCOUNTER 2024-12-24 01:15 | Day surgery (SDC) | payer MEDICARE, SELFPAY ==
--- NOTE | 2024-12-17 13:59 | PC.NURSE ---
called to speak with pts daughter Sveta about upcoming egd. Sveta is POA for pt. She states she will need to reschedule the procedure, states pt has a few things going on that also need to get figured out and wasn't sure pt could make the December 25 appt. gave her the number to call to reschedule.
[2024-12-23 11:51] VITALS: BMI 20.9
--- OUTSIDE RECORDS SUMMARY | 2024-12-24 01:19 | XMS_ITS | Clinical Summary ---
Author Organization [facility] [address] Address [address] [place] [address] Care Team Providers Care Life Enrichment Director Name Role Phone Gume Bermudez MD Primary Care Provider [phone] Allergies Active Allergy Reactions Criticality Noted Date [...] Encounters Date Type Department Care Team Description 12/17/2024 2:00 PM CDT - 12/17/2024 5:25 PM CDT Emergency [facility] Emergency Department [address] [place] [address] Discharge Disposition: Left without being seen 12/15/2024 Documentation [facility] Department of Psychiatry [address] [facility], [address] [place] [address] Freedom Hill MD No show 1st letter sent 12/14/2024 11/18/2024 Telephone [facility] Department of Psychiatry [address] [facility] [address] [place] [address] Freedom Hill MD 11/17/2024 Telephone [facility] Department of Psychiatry [address] [facility] [address] [place] [address] Freedom Hill MD Requesting Call [...] e alcohol) Personal Safety Answer Date Recorded Have you ever been in or are you currently in a harmful physical or emotional relationship or is someone making you feel afraid or unsafe? 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 Gender Identity Not on file Sexual Orientation Not on file Obstetrics History Last Filed Vital Signs Vital Sign Reading Time Taken Comments Blood Pressure 134/88 12/17/2024 2:32 PM CDT Pulse 67 12/17/2024 2:32 PM CDT Temperature 36.3 C (97.4 F) 12/17/2024 2:32 PM CDT Respiratory Rate 16 12/17/2024 2:32 PM CDT Oxygen Saturation 98% 12/17/2024 2:32 PM CDT Inhaled Oxygen Concentration - - Weight 68 kg (150 lb) 12/17/2024 2:32 PM CDT Height 157.5 cm (5' 2) 09/26/2017 9:48 AM CDT Body Mass Index 27.44 09/26/2017 9:48 AM CDT Plan of Treatment [...] 08/31/2023 Pneumococcal vaccine 65+ Completed 05/18/2022, 02/08 Procedures Procedure Name Priority Date/Time Associated Diagnosis Comments XR FOOT RIGHT 3 OR MORE VIEWS ED 12/17/2024 3:22 PM CDT from Last 3 Months Results * XR Foot Right 3 or More Views (12/17/2024 3:22 PM CDT) Anatomical Region Laterality Modality Lower Extremities, Foot Right Computed Radiography 12/17/2024 4:20 PM CDT Impressions 12/17/2024 4:21 PM CDT 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 Dictated by: Clifford Celaya M.D. The radiology attending physician has personally reviewed this study, and had reviewed and/or edited this written report and agrees with it. Electronically signed by: Renee Win M.D. Narrative 12/17/2024 4:21 PM CDT EXAMINATION: XR FOOT RIGHT 3 OR MORE VIEWS HISTORY: Status post fall. COMPARISON: None. FINDINGS: Sclerotic and cystic changes with adjacent soft tissue thickening of the distal first metatarsal. These findings correlate to chronic changes of bunion formation. No acute fracture. Procedure Note Renee Win MD - 12/17/2024 EXAMINATION: XR FOOT RIGHT 3 OR MORE VIEWS HISTORY: Status post fall. COMPARISON: None. FINDINGS: Sclerotic and cystic changes with adjacent soft tissue thickening of the distal first metatarsal. These findings correlate to chronic changes of bunion formation. No acute fracture. 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 Dictated by: Clifford Celaya M.D. The radiology attending physician has personally reviewed this study, and had reviewed and/or edited this written report and agrees with it. Electronically signed by: Renee Win M.D. Juanita Anguiano MD IMG XR PROCEDURES Final Re sult from Last 3 Months Insurance [facility] INSURANCE MEDICARE MEDICARE MEDICARE Care Teams Life Enrichment Director Relationship Specialty Start Date End Date Gume Bermudez MD [address] [facility] [address] [facility] [address] [place] [address] PCP - General Internal Medicine 08/13/17
--- OUTSIDE RECORDS SUMMARY | 2024-12-24 01:19 | XMS_ITS | Referral Summary ---
Author Organization [facility] [address] Address [address] [place] [address] Care Team Providers Care Vp Software Support Name Role Phone Gume Bermudez MD Primary Care Provider Encounters Date Type Department Care Team Description 12/17/2024 2:00 PM CDT - 12/17/2024 5:25 PM CDT Emergency [facility] Emergency Department 1 [place] [address] Discharge Disposition: Left without being seen 12/15/2024 Documentation [facility] Department of Psychiatry [address] [facility], [address] [facility] [place] [address] Freedom Hill MD No show 1st letter sent 12/14/2024 11/18/2024 Telephone [facility] Department of Psychiatry [address] [address] Freedom Hill MD 11/17/2024 Telephone [facility] Department of Psychiatry [address] [facility] [address] [place] [address] Freedom Hill MD Requesting Call Back [...] on file 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
--- OUTSIDE RECORDS SUMMARY | 2024-12-24 01:19 | XMS_ITS | Encounter Summary ---
Author Organization [facility] Healthcare Address [address] [place] [address] Care Team Providers Care Access Services Librarian Name Role Phone Gume Bermudez MD Primary Care Provider [phone] Encounter Details Date Type Department Care Team (Late st Contact Info) Description 08/26/2017 Orders Only [facility] Health Information Management [address] [place] [address] Scanning, Provider Social History Tobacco Use Types Packs/Day Years Used Date Smoking Tobacco: Every Day Cigarettes Smokeless Tobacco: Never Alcohol Use Standard Drinks/Week Comments No 0 (1 standard drink = 0.6 oz pur e alcohol) Comments Unknown Sex and Gender Information Value Date Recorded Sex Assigned at Not on file 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
--- OUTSIDE RECORDS SUMMARY | 2024-12-24 01:19 | XMS_ITS | Encounter Summary ---
Author Organization [facility] Healthcare Address [address] [place] [address] Care Team Providers Care Rail Car Painter/Sandblaster Name Role Phone Gume Bermudez MD Primary Care Provider [phone] Encounter Details Date Type Department Care Team (Late st Contact Info) Description 08/15/2017 Orders Only [facility] Health Information Management [address] [place] [address] Scanning, Provider Social History Tobacco Use Types Packs/Day Years Used Date Smoking Tobacco: Every Day Cigarettes Smokeless Tobacco: Never Alcohol Use Standard Drinks/Week Comments No 0 (1 standard drink = 0.6 oz pur e alcohol) Comments Unknown Sex and Gender Information Value Date Recorded Sex Assigned at Not on file 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
--- OUTSIDE RECORDS SUMMARY | 2024-12-24 01:19 | XMS_ITS | Clinical Summary ---
Author Organization [facility] Address [address] [place] [address] Phone Care Team Providers Care Produce Field Merchandiser Name Role Phone Gume Bermudez MD Primary Care Provider [phone] Social History Tobacco Use Types Packs/Day Years [...] of 2 - PCV) 1994 Influenza Vaccine (#1) 2025 Insurance MEDICARE [facility] [place] [id number] Care Teams Produce Field Merchandiser Relationship Specialty Start Date End Date Gume Bermudez MD [address] [facility] [address] [facility] [address] [place] [address] PCP - General Internal Medicine 01/15/22
[2024-12-24 07:29] VITALS: BP 143/90; PULSE 52; RESP 16; TEMP 36.7; O2SAT 96
[2024-12-24] MEDS: SIMETHICONE ORAL SUSPENSION 20 MG/0.3 ML 30 ML BOTTLE 1.8 ML PO (07:42)
[2024-12-24] MEDS: LACTATED RINGERS 1,000 ML 150 ML IV CONT (07:44)
--- NOTE | 2024-12-24 08:15 | PM.IMHP ---
H&P: HPI History of Present Illness Date/Time: 12/24/24 08:15 Chief Complaint: Early satiety-weight loss Narrative: the patient states she has lost an unquantified amount of weight, but significant over the past few months. In addition she states she has lost her appetite and has early satiety. She is referred for EGD. 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 Code status: Full code. Smoking packs per day: 1 Smoking cigarettes per day: 20.0 Years smoked: 30 Smoking pack-years: 30.00 Smoking status: Heavy tobacco smoker Tobacco type: cigarettes Alcohol intake: current Substance use: never Substance use type: does not use Do You Feel Safe in your Home?: Yes Lack of Transportation: No Lack of Food: Never True Current Housing: I Have Housing Concerned About Future Housing: No Difficulty Paying Gas/Electric Bills: No Difficulty Paying for Meds: No Currently Unemployed: No Education: Bachelor's Degree Difficulty w/ Childcare or Family Care: No Living arrangements: [facility] Spiritual care concerns: No Meds Home Medications and Allergies Home Medications ?Medication ?Instructions ?Recorded ?Confirmed ?Type magnesium citrate (OneLAX 150 ml PO DAILY 10/29/24 12/24/24 History Magnesium Citrate oral solution) tizanidine 2 mg tablet 2 mg PO TID PRN muscle spasticity 11/18/24 12/24/24 Rx #30 tabs suzetrigine 50 mg tablet (Journavx) 50 mg PO BID pain #30 tabs 11/26/24 12/24/24 Rx amitriptyline 50 mg tablet 50 mg PO DAILY 12/04/24 12/24/24 History nitroglycerin 0.4 mg sublingual 0.4 mg sublingual Q5M PRN chest 12/04/24 12/24/24 History tablet pain acetaminophen 300 mg-codeine 30 mg 2 tablet PO Q6H PRN Pain Rated 4-6 12/09/24 12/24/24 Rx tablet #14 tabs pantoprazole 20 mg tablet,delayed 40 mg (2 x 20 mg) PO HS 4 weeks 12/12/24 12/24/24 Rx release (Protonix) #56 tabs sucralfate 1 gram tablet (Carafate) 1 g PO Q6H 10 days #40 tabs 12/12/24 12/24/24 Rx tramadol 50 mg tablet 50 mg PO Q6H PRN back pain #35 tabs 12/15/24 12/24/24 Rx ezetimibe 10 mg tablet See Rx Instructions .Route 12/16/24 12/24/24 Rx .COMPLEX #90 tabs rosuvastatin 40 mg tablet See Rx Instructions .Route 12/16/24 12/24/24 Rx .COMPLEX #90 tabs Allergies Allergy/AdvReac Type Severity Reaction Status Date / Time No Known Allergies Allergy Verified 12/24/24 07:28 Vital Signs Vital Signs - 24 hr 12/24/24 07:29 Temperature 98.1 F Pulse Rate 52 L Respiratory Rate 16 Blood Pressure 143/90 H Pulse Oximetry 96 Oxygen Delivery Room Air Exam Const: General: cooperative and healthy appearing Resp: Effort & Inspection: normal respiratory effort and able to speak in complete sentences Auscultation: clear to auscultation bilaterally Cardio: Rate: regular rate Rhythm: regular rhythm GI: Inspection: normal to inspection GI Palp: No No hepatosplenomegaly present Auscultation: normal bowel sounds Rectal Exam: deferred Skin: General skin exam: normal color Psych: Appearance: grossly normal Mental Status: mental status grossly normal Assessment and Plan Assessment and plan (1) Weight loss: Code(s): R63.4 - Abnormal weight loss Status: Acute Assessment and Plan: The patient is deemed a good candidate for the procedure. Consent signed. Will proceed.
--- NOTE | 2024-12-24 08:21 | WPDANESEPPF ---
Anes - Initial Pre Proc Eval Procedure: Operation Date: 12/24/24 08:30 Proposed Procedures p Esophagogastroduodenoscopy - Edi Carty MD Date/Time: 12/24/24 08:21 Surgeon: Edi Carty MD Pre Op Diagnosis: Duodenal ulcer, unspecified as acute or chronic, w Patient Data Age: 79 Gender: F Height: 1.57 m Weight: 52.9 kg Last Vital Signs Temp 98.1 F 12/24/24 07:29 Pulse 52 L 12/24/24 07:29 Resp 16 12/24/24 07:29 BP 143/90 H 12/24/24 07:29 Pulse Ox 96 12/24/24 07:29 O2 Del Method Room Air 12/24/24 07:29 Allergies Allergy/AdvReac Type Severity Reaction Status Date / Time No Known Allergies Allergy Verified 12/24/24 07:28 Home Medications ?Medication ?Instructions ?Recorded ?Confirmed ?Type magnesium citrate (OneLAX 150 ml PO DAILY 10/29/24 12/24/24 History Magnesium Citrate oral solution) tizanidine 2 mg tablet 2 mg PO TID PRN muscle spasticity 11/18/24 12/24/24 Rx #30 tabs suzetrigine 50 mg tablet (Journavx) 50 mg PO BID pain #30 tabs 11/26/24 12/24/24 Rx amitriptyline 50 mg tablet 50 mg PO DAILY 12/04/24 12/24/24 History nitroglycerin 0.4 mg sublingual 0.4 mg sublingual Q5M PRN chest 12/04/24 12/24/24 History tablet pain acetaminophen 300 mg-codeine 30 mg 2 tablet PO Q6H PRN Pain Rated 4-6 12/09/24 12/24/24 Rx tablet #14 tabs pantoprazole 20 mg tablet,delayed 40 mg (2 x 20 mg) PO HS 4 weeks 12/12/24 12/24/24 Rx release (Protonix) #56 tabs sucralfate 1 gram tablet (Carafate) 1 g PO Q6H 10 days #40 tabs 12/12/24 12/24/24 Rx tramadol 50 mg tablet 50 mg PO Q6H PRN back pain #35 tabs 12/15/24 12/24/24 Rx ezetimibe 10 mg tablet See Rx Instructions .Route 12/16/24 12/24/24 Rx .COMPLEX #90 tabs rosuvastatin 40 mg tablet See Rx Instructions .Route 12/16/24 12/24/24 Rx .COMPLEX #90 tabs Patient hx anesthesia problems: none Family hx anesthesia problems: none Results Review: All pre-operative results and documents have been reviewed as part of the pre-operative evaluation. 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 Code status: Full code. Smoking packs per day: 1 Smoking cigarettes per day: 20.0 Years smoked: 30 Smoking pack-years: 30.00 Smoking status: Heavy tobacco smoker Tobacco type: cigarettes Alcohol intake: current Substance use: never Substance use type: does not use Do You Feel Safe in your Home?: Yes Lack of Transportation: No Lack of Food: Never True Current Housing: I Have Housing Concerned About Future Housing: No Difficulty Paying Gas/Electric Bills: No Difficulty Paying for Meds: No Currently Unemployed: No Education: Bachelor's Degree Difficulty w/ Childcare or Family Care: No Living arrangements: retirement Spiritual care concerns: No Anes - Eval Final PreProcedure Day of Procedure 12/24/24 08:21 Patient weight: thin Lungs: normal air movement Airway: Mallampati scale class II Neurological: alert and oriented Last oral intake: >/= 8 hours ASA classification: III Emergent: no Anesthetic plan: proceed Anesthesia type and monitoring: general GIVS and standard monitoring Results Review: All pre-operative results and documents have been reviewed as part of the pre-operative evaluation. Smoker, several cigs/day, ARISTEO noncompliant w CPAP, pre DM. Loss of appetite. Informed Consent: The patient's anesthetic plan and its attendant risks and benefits were discussed with the patient/family/POA. Questions were solicited and answers provided to the satisfaction of the patient/family/POA.
--- NOTE | 2024-12-24 08:40 | S_PTH ---
PATIENT: Radha Sánchez LOC: [facility] U#:[id number] AGE/SX: 79/F ROOM: RE12/24/[address]: Edi Carty MD : 1945 BED: DIS: 12/24/2024 SPEC #: [id number] RECD: 12/24/24 09:48 STATUS: SARITA REQ #: [id number] NEERAJ: 12/24/24 08:[address]: Edi Carty DEPT: [facility] Surgical RECD BY: Comfort Gudino ENTERED: 12/24/24 09:49 SP TYPE: Surgical OTHR DR: Gume Bermudez MD Tissues: A - Gastric Biopsy B - Gastric Biopsy C - Gastric Biopsy Procedures: Hematoxylin and Eosin Stain Gross and Microscopic Level 4 H.Pylori
[2024-12-24 08:43] VITALS: BP 150/83; PULSE 72; RESP 19; O2SAT 100
[2024-12-24 08:53] VITALS: BP 126/71; PULSE 72; RESP 19; O2SAT 100
[2024-12-24 09:03] VITALS: BP 151/70; PULSE 56; RESP 21; O2SAT 100
[2024-12-24 09:45] LABS: HPYLORIRESULT Negative (Negative)
== END 2024-12-24 09:15 | disposition home or self-care (01) ==
PROVIDERS: PCP Internal Medicine; Referring Provider Internal Medicine; Visit Provider Internal Medicine Gastroenterology
PROC: 0DJ08ZZ Inspection of Upper Intestinal Tract, Via Natural or Artificial Opening Endoscopic (ICD-10-PCS; CPT 43239; principal; 2024-12-24 08:30)
DX: K25.9 Gastric ulcer, unspecified as acute or chronic, without hemorrhage or perforation (principal); K29.30 Chronic superficial gastritis without bleeding; K31.A11 Gastric intestinal metaplasia without dysplasia, involving the antrum; F17.210 Nicotine dependence, cigarettes, uncomplicated
CPT/HCPCS: 43239; 87081; 88305; 88342; J2003; J2704; J7120

== ENCOUNTER 2024-12-29 09:25 | Outpatient (CLI) | payer MEDICARE, SELFPAY ==
--- NOTE | ~2024-12-29 | XR_ITS ---
EXAM/ PROCEDURE: XR hip BI 2V w AP pelvis - 12/29/2024 9:30 CDT HISTORY: 79 years old Female with M25.559 - Pain in unspecified hip COMPARISON: None available TECHNIQUE: Three view(s) FINDINGS/ IMPRESSION: There are no fractures or dislocations.Joint space narrowing, subchondral sclerosis, subchondral cyst formation and osteophyte formation, compatible with mild osteoarthritis. Status post right hip arthroplasty. Intact hardware and no loosening. Reviewed, dictated and finalized at location A.
--- NOTE | ~2024-12-29 | XR_ITS ---
EXAM/ PROCEDURE: XR lumbar spine 2-3V - 12/29/2024 9:30 CDT HISTORY: 79 years old Female with S32.019A - Unspecified fracture of first lumbar vertebra,... COMPARISON: None available TECHNIQUE: Three view(s) FINDINGS/ IMPRESSION: Diffuse osteopenia, limiting evaluation of nondisplaced fractures. Chronic compression deformities of L1 and L4 vertebral bodies. Status post kyphoplasty of L2 vertebra l body. Multilevel degenerative changes are seen. Atherosclerotic calcifications are seen in the aort a. Reviewed, dictated and finalized at location A.
== END 2024-12-29 09:26 | disposition home or self-care (01) ==
LOC: MICIMG 09:27
PROVIDERS: PCP Internal Medicine; Visit Provider Nurse Practitioner Adult Health
DX: S32.019A Unspecified fracture of first lumbar vertebra, initial encounter for closed fracture (principal); S32.029A Unspecified fracture of second lumbar vertebra, initial encounter for closed fracture; X58.XXXA Exposure to other specified factors, initial encounter; M25.559 Pain in unspecified hip; M85.88 Other specified disorders of bone density and structure, other site; M51.369 Other intervertebral disc degeneration, lumbar region without mention of lumbar back pain or lower extremity pain
CPT/HCPCS: 72100; 73521

== ENCOUNTER 2025-03-23 19:01 | Emergency (ER) | payer MEDICARE, SELFPAY ==
--- NOTE | ~2025-03-23 | XR_ITS ---
XR hip RT 2V w AP pelvis INDICATION: pain COMPARISON: None FINDINGS: AP view the pelvis and 2 views of the right hip demonstrate right hip arthroplasty. There is a slight opacity. There is a acute displaced subtrochanteric fracture. There is subacute fracture of the superior and inferior right pubic rami. IMPRESSION: Prosthesis fracture of the subtrochanteric right femur. Healing fracture of the right superior and inferior pubic rami. Reviewed, dictated and finalized at location S.
--- NOTE | ~2025-03-23 | XR_ITS ---
XR wrist RT min 3V INDICATION: fall, trauma . COMPARISON: None. FINDINGS: Frontal, lateral and oblique views of the right wrist were obtained. No acute fracture is seen. Degenerative changes with joint space narrowing of the radiocarpal joint. Degenerative arthropathy at the basal joint of the thumb. IMPRESSION: No acute fracture or dislocation. Moderate degenerative changes with joint space narrowing particularly at the radiocarpal joint and basal joint of the thumb. Reviewed, dictated and finalized at location S. IMPRESSION: No acute fracture or dislocation. Moderate degenerative changes with joint space narrowing particularly at the ra diocarpal joint and basal joint of the thumb.
[2025-03-23 19:01] VITALS: BP 129/75; PULSE 68; RESP 18; TEMP 36.7; O2SAT 94
--- NOTE | 2025-03-23 19:40 | PC.NURSE ---
Spoke with son Rehan who lives out of town at 1930-updated on patient current condition per patient request that someone be notified that I'm here, patient did not bring her phone. Son voiced concern that over the last 10 days patient has been confused and hallucinating (about people that have already ) at times when he has talked to her on the phone. Daughter Sveta was notified by Rehan via text-apparently patient and daughter are not speaking at this time. Son shannon hoskins notified with end diagnoses and treatment
--- OUTSIDE RECORDS SUMMARY | 2025-03-23 19:51 | XMS_ITS | Encounter Summary ---
Author Organization [facility] Healthcare Address [address] [place] [address] Care Team Providers Care Telephone Services Sales Representative Name Role Phone Gume Bermudez MD Primary Care Provider [phone] Encounter Details Date Type Department Care Team (Late st Contact Info) Description 08/26/2017 Orders Only [facility] Health Information Management [address] [place] [address] Scanning, Provider Social History Tobacco Use Types Packs/Day Years Used Date Smoking Tobacco: Every Day Cigarettes Smokeless Tobacco: Never Alcohol Use Standard Drinks/Week Comments No 0 (1 standard drink = 0.6 oz pur e alcohol) Comments Unknown Sex and Gender Information Value Date Recorded Sex Assigned at Not on file 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
--- OUTSIDE RECORDS SUMMARY | 2025-03-23 19:51 | XMS_ITS | Patient Health Record ---
Author Organization [facility] [email or web address] [facility] Address [address] [facility] [address] [place] [address] Care Team Providers Care Bobbin Washer Name Role Phone Lara SOLER, Gume Primary Care Provider Unavailab Faisal Monreal Unavailable [phone] Allergies No Known Allergies Results Component Value Reference Range Notes UDT Reviewed date:03/18/2025 09:22:33 AM Interpretation: Performing Lab: Notes/Report: THC n 0 - 50 ng/ml Cocaine n 0 - 300 ng/ml Amphetamine n 0 - 1000 ng/ml Buprenorphine (BUP) n 0 - 10 ng/ml Secobarbital (Bar) n 0 - 300 ng/ml Oxazepam (BZO) p 0 - 300 ng/ml 7-vlnmhvcpsu-2,8-odhgmxtv-4,3-diphenylpyrrolidine (WILLA P) n 0 - 300 ng/ml Methamphetamine (MET) n 0 - 1000 ng/ml Methylenedioxymethamphetamine (MDMA) n 0 - 500 ng/ml Morphine (MOP 300/[id number]) n 0 - 300 ng/ml Methadone (MTD) n 0 - 300 ng/ml Phencyclidine (PCP) n 0 - 25 ng/ml Nortriptyline (TCA) n 0 - 1000 ng/ml Oxycodone n 0 - 300 ng/ml x n 0 - 300 ng/ml Reason For Referral No Information Medications Medication SIG (Take, Route, Frequency, Duration) Notes Start Date End Date Status DULoxetine HCl 30 MG Capsule Delayed Release Particles TAKE 1 CAPSULE BY MOUTH ONCE DAILY WITH A 60MG CAPSULE FOR 90MG TOTAL Oral; Duration: 90 Days Not-Taking Levothyroxine Sodium 112 MCG Tablet TAKE 1 TABLET BY MOUTH ONCE DAILY Oral; Duration: 90 Days Active Nucynta ER 50 MG Tablet Extended Release 12 Hour TAKE 1 TABLET BY MOUTH ONCE DAILY Oral; Duration: 20 days Active Rivastigmine Tartrate 1.5 MG Capsule 1 capsule with food Orally Twice a day; Duration: 30 days 03/18/2025 Active Rosuvastatin Calcium 40 MG Tablet TAKE 1 TABLET BY MOUTH ONCE DAILY Oral; Duration: 30 Days Active Ezetimibe 10 MG Tablet TAKE 1 TABLET BY MOUTH ONCE DAILY Oral; Duration: 90 Days Active diazePAM 10 MG Tablet TAKE 1 TABLET BY M OUTH THREE TIMES DAILY NEEDED FOR ANXIETY Oral; Duration: 30 Days Active tiZANidine HCl 2 MG Tablet TAKE 1 TABLET BY MOUTH THREE TIMES DAILY NEEDED FOR MUSCLE SPASTICITY. Oral; Duration: 10 Days Active Pantoprazole Sodium 20 MG Tablet Delayed Release TAKE 2 TABLETS BY MOUTH ONCE DAILY AT BEDTIME Oral; Duration: 45 Days Active Isosorbide Mononitrate ER 60 MG Tablet Extended Release 24 Hour TAKE 1 TABLET BY MOUTH ONCE DAILY Oral; Duration: 90 Days Active Social History Tobacco Use: Social History Observation Description Date Details (start date - stop date) Current Smoker NA - NA Sex Assigned At : Social History Observation Description Sex Assigned At Female Social History Drug/Alcohol: Social Info Question Answer Notes Caffeine Intake: 2-3 cups per day Tobacco Use: Social Info Question Answer Notes Tobacco Control (Standard) Tobacco use: Current smoker How often do you smoke cigarettes? Every day How many cigarettes a day do you smoke? -20 Tobacco Use/Smoking Tobacco use: current smoker Additional Details Category Social Info Options Details Drug/Alcohol: Do you smoke marijuana? No Do you drink alcohol? Socially Section Notes: Tobacco use: Smokes one pack per day Living situation: Lives alone Tobacco use: Smokes one pack per day Tobacco use: Smokes one pack per day Living situation: Lives alone Problems Problem Type SNOMED Code ICD Code Onset Dates Problem Status W/U Status Risk Notes Problem Tobacco user (881311845) Nicotine dependence, unspecified, uncomplicated (F17.200) Active confirmed Problem Amnesia (16369818) Other amnesia (R41.3) Active confirmed Problem Mild recurrent major depression (88273844) Mild recurrent major depression (F33.0) Active confirmed Problem Mild cognitive disorder (982786020) Mild cognitive disorder (F09) Active confirmed Vital Signs Heart Rate 78 /min 03/18/2025 Height-cm 157.48 cm 03/18/2025 Blood pressure diastolic 66 mm Hg 03/18/2025 Weight-kg 47.17 kg 03/18/2025 Height 62 in 03/18/2025 Blood pressure systolic 117 mm Hg 03/18/2025 Weight 104 lbs 03/18/2025 BMI 19.02 kg/m2 03/18/2025 Encounters Encounter Location Date Provider Diagnosis [facility] [employer] [facility] [address] [facility] [address] [place] [address] 03/01/2025 Faisal Kevon Mild recurrent major depression F33.0 ; Mild cognitive disorder F09 ; Other amnesia R41.3 and Nicotine dependence, unspecified, uncomplicated F17.200 [facility] [employer] [facility] [address] [facility] [address] [place] [address] 03/04/2025 Faisal Kevon Mild cognitive disor debra F09 [facility] [employer] [place] [address] [facility] [address] [place] [address] 03/18/2025 Faisal Kevon Mild recurrent major depression F33.0 ; Mild cognitive disorder F09 and Nicotine dependence, unspecified, uncomplicated F17.200 [facility] [employer] [place] [address] [facility] [address] [place] [address] 03/23/2025 Faisal Kevon Assessments Encounter Date Diagnosis (ICD Code) Assessment Notes Treatment Notes Treatment Clinical Notes Section Notes 03/04/2025 Mild cognitive disorder (ICD-10 - F09) Patient Name: Radha Sánchez Date of : Assessment Date: Group: Female, Age 75+ Report Type: Mild Cognitive Impairment (MCI) Assessment Assessment Tools: UMS and Creyos Cognitive Battery Findings: The UMS ([facility] Mental Status) score is 18, which falls within the range suggestive of Mild Cognitive Impairment. This indicates measurable cognitive changes beyond normal aging but not severe enough to qualify as dementia. Cognitive testing using the Creyos battery supports this interpretation with several below-average findings and areas of inconsistency:- Attention (Score: 87): Borderline performance, suggesting mild difficulties with sustained attention and mental focus. - Episodic Memory: Marked as Potentially Invalid Result, meaning the data may not reliably represent true memory function; further evaluation or retesting may be warranted. - Response Inhibition (Score: 92): Low-average range, indicating mildly reduced ability to suppress automatic responses or manage interference, which can impact daily decision-making and multitasking. - Visuospatial Working Memory (Score: 97): Within the average range, suggesting preserved short-term visual reasoning and problem-solving skills. - Mental Rotation: Marked as Potentially Invalid Result, so interpretation is limited; may reflect difficulty understanding or engaging with the task. - Verbal Short-Term Memory (Score: 72): Below average, consistent with impaired short-term retention and verbal recall, often seen in early MCI or age-related decline. Interpretation: The combined findings are consistent with Mild Cognitive Impairment, with primary deficits in verbal short-term memory and sustained attention. While visuospatial and inhibitory control skills remain within normal limits, the low SLUMS score and verbal memory weakness suggest early-stage cognitive decline affecting learning, recall, and attention. Potentially invalid results in some tests may have been influenced by fatigue, misunderstanding of instructions, or inconsistent task engagement. Recommendations: 1. No pharmacological treatment is indicated for MCI at this stage. Emphasis should be on cognitive and lifestyle interventions to maintain brain health and slow decline. 2. Recommend non-pharmacologica l cognitive exercises and brain-stimulation activities such as: - Daily memory training tasks (recalling lists, using memory apps, or storytelling exercises) - Word recall and language-based games to strengthen verbal memory - Physical activity, especially aerobic exercise, which improves cerebral blood flow - Mindfulness or meditation to enhance attention and mental flexibility - Social interaction and participation in mentally stimulating hobbies such as reading, puzzles, or crafts 3. Address modifiable risk factors such as sleep, hypertension, diabetes, and cholesterol management. 4. Reassess cognition in 6 to 12 months to monitor for progression. 5. Encourage a diet rich in omega-3 fatty acids, fruits, vegetables, and whole grains to support cognitive function. Conclusion: The findings are consistent with Mild Cognitive Impairment. Areas of concern include reduced verbal memory and attentional consistency, though other cognitive functions remain stable. Continued monitoring and engagement in cognitive and physical activities are strongly recommended. 03/18/2025 Mild recurrent major depression (ICD-10 - F33.0) Patient reports feeling down, sadness, and missing her parents. Persistent emotional distress and depression since her . Amitriptyline was previously prescribed for depressive symptoms. 03/18/2025 Mild cognitive disorder (ICD-10 - F09) Symptoms include confusion, poor recall memory, difficulty paying attention, and hallucinations. Cognitive testing revealed a Slum score of 18/30 and an IQ code of 1.8, indicating impairment greater than expected. Patient reports decline in memory compared to 10 years ago. Patient is distressed by cognitive changes and is open to starting new medication and mental exercises. - Start Exelon capsule, 1 capsule twice a day. - Will send report to PCP Dr Man for further evaluation and follow-up. - Plan to reassess in one month to evaluate response to medication. 03/01/2025 Mild recurrent major depression (ICD-10 - F33.0) 03/01/2025 Mild cognitive disorder (ICD-10 - F09) 03/01/2025 Other amnesia (ICD-10 - R41.3) Recent episodes of confusion, including searching for her son and parents. Difficulty remembering names and embarrassment over lapses. Family and provider concern regarding memory changes. Maintains cognitive activity through reading, puzzles, and online games. - Order cognitive testing (paper-pencil and computer-based) to assess memory loss. - Schedule follow-up visit to discuss cognitive testing results. - Fax cognitive testing results to primary care provider (Dr. Jane) as requested. 03/18/2025 Nicotine dependence, unspecified, uncomplicated (ICD-10 - F17.200) Patient smokes one pack of cigarettes per day. She does not intend to cut down or quit smoking. She avoids smoking indoors and smokes less in bad weather. 03/01/2025 Nicotine dependence, unspecified, uncomplicated (ICD-10 - F17.200) Smokes one pack per day. Has declined recommendations to quit. No symptoms such as coughing reported. 03/01/2025 Other Gait, Strength, and Balance Training ExercisesThis handout provides simple exercises to improve your gait, strength, and balance. Theseexercises can help prevent falls, improve mobility, and enhance overall function. Perform them in asafe space, use support if needed, and stop if you feel pain or dizziness.1. Gait Training Exercises- Walk in a straight line for 10-20 feet, heel-to-toe.- Step over small objects (cones or rolled towels).- Practice walking sideways and backwards.- Use a treadmill if available, under supervision.2. Balance Exercises- Stand on one foot for 10-30 seconds; switch legs.- Walk heel-to-toe in a straight line.- Use a balance board or cushion to challenge stability.- Practice rising from a chair without using your hands.3. Strength Training Exercises- Ifp-bx-pentd: rise from a chair repeatedly.- Wall push-ups: stand at arm's length from a wall and push.- Step-ups on a low step or stairs.- Leg lifts while seated or lying down.Consult your primary care provider (PCP) before starting these exercises, especially if you havemedical conditions or difficulty performing them Learning About Depression Screening material was printed Chronic back pain and discomfort affecting mood and concentration. History of hip replacement and knee surgery. Discontinued newly prescribed pain medication due to adverse effects. 03/18/2025 Other Gait, Strength, and Balance Training ExercisesThis handout provides simple exercises to improve your gait, strength, and balance. Theseexercises can help prevent falls, improve mobility, and enhance overall function. Perform them in asafe space, use support if needed, and stop if you feel pain or dizziness.1. Gait Training Exercises- Walk in a straight line for 10-20 feet, heel-to-toe.- Step over small objects (cones or rolled towels).- Practice walking sideways and backwards.- Use a treadmill if available, under supervision.2. Balance Exercises- Stand on one foot for 10-30 seconds; switch legs.- Walk heel-to-toe in a straight line.- Use a balance board or cushion to challenge stability.- Practice rising from a chair without using your hands.3. Strength Training Exercises- Hie-ig-aphps: rise from a chair repeatedly.- Wall push-ups: stand at arm's length from a wall and push.- Step-ups on a low step or stairs.- Leg lifts while seated or lying down.Consult your primary care provider (PCP) before starting these exercises, especially if you havemedical conditions or difficulty performing them Gait, Strength, and Balance Training ExercisesThis handout provides simple exercises to improve your gait, strength, and balance. Theseexercises can help prevent falls, improve mobility, and enhance overall function. Perform them in asafe space, use support if needed, and stop if you feel pain or dizziness.1. Gait Training Exercises- Walk in a straight line for 10-20 feet, heel-to-toe.- Step over small objects (cones or rolled towels).- Practice walking sideways and backwards.- Use a treadmill if available, under supervision.2. Balance Exercises- Stand on one foot for 10-30 seconds; switch legs.- Walk heel-to-toe in a straight line.- Use a balance board or cushion to challenge stability.- Practice rising from a chair without using your hands.3. Strength Training Exercises- Kam-zj-rikfr: rise from a chair repeatedly.- Wall push-ups: stand at arm's length from a wall and push.- Step-ups on a low step or stairs.- Leg lifts while seated or lying down.Consult your primary care provider (PCP) before starting these exercises, especially if you havemedical conditions or difficulty performing them Plan Of Treatment Future Test Test Name Order Date MCI Testing 03/01/2025 SLUMS Testing 03/01/2025 Next Appt Details Provider Name:Faisal Knott Kevon , 04/14/2025 08:45:00 AM, [address], [address], [place], [address], Insurance Providers Payer Name Payer Address Payer Phone Subscriber Number Group Number Insured Name Patient Relationship to Insured Coverage Start Date Coverage End Date [place] [address] [place] [phone] [id number] Radha Sánchez Self - patient is the insured [employer] Medicare Supplement [address] [address] [place] [phone] [id number] Radha Sánchez Self - patient is the insured Medical (General) History Medical History History ICD Code Anxiety Arthritis Chronic Fatigue GERD Hearing loss HLD Insomnia Tobacco abuse Vit D Deficiency Chronic back pain Hip replacement Knee surgery broken ribs Surgical History Surgery Date(Month/Year) Hip replacement, timeframe not specified Knee surgery, timeframe not specified
--- OUTSIDE RECORDS SUMMARY | 2025-03-23 19:51 | XMS_ITS | Clinical Summary ---
Author Organization [facility] Address [address] [place] [id number] Phone Care Team Providers Care Lacquer Machine Feeder Name Role Phone Gume Bermudez MD Primary Care Provider [phone] Social History Tobacco Use Types Packs/Day Years [...] 1994 Influenza Vaccine (#1) 2025 Insurance MEDICARE [facility] [place] [id number] Care Teams Lacquer Machine Feeder Relationship Specialty Start Date End Date Gume Bermudez MD [address] [facility] [address] [facility] [address] [place] [id number] PCP - General Internal Medicine 01/15/22
--- OUTSIDE RECORDS SUMMARY | 2025-03-23 19:51 | XMS_ITS | Encounter Summary ---
Author Organization [facility] Address [address] [place] [address] Care Team Providers Care Facilities Operations Technician Name Role Phone Gume Bermudez MD Primary Care Provider [phone] Encounter Details Date Type Department Care Team (Late st Contact Info) Description 08/15/2017 Orders Only [facility] Health Information Management [address] [place] [id number] Scanning, Provider Social History Tobacco Use Types Packs/Day Years Used Date Smoking Tobacco: Every Day Cigarettes Smokeless Tobacco: Never Alcohol Use Standard Drinks/Week Comments No 0 (1 standard drink = 0.6 oz pur e alcohol) Comments Unknown Sex and Gender Information Value Date Recorded Sex Assigned at Not on file 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
--- NOTE | 2025-03-23 20:17 | ED_ITS ---
HPI - Fall General Chief Complaint: Fall Stated Complaint: back pain, fall Time Seen by Provider: 03/23/25 19:02 History of Present Illness HPI Narrative: Patient is an 79-year-old female who presents emergency department this evening status post a ground level fall. Patient tripped and fell landing on her right side. Complaining of right wrist pain and right hip pain. Patient states that she has had her right hip replaced approximately 25 years ago. Denies hitting her head. Denies any blood thinner use. Patient is currently wearing a back brace due to multiple back surgeries. Otherwise denies any additional injuries or concerns. Related Data Home Medications ?Medication ?Instructions ?Recorded ?Confirmed ?Last Taken ?Type magnesium citrate (OneLAX 150 ml PO DAILY 10/29/24 Unknown History Magnesium Citrate oral solution) nitroglycerin 0.4 mg sublingual 0.4 mg sublingual Q5M PRN chest 12/04/24 02/25/25 Unknown History tablet pain duloxetine 60 mg capsule,delayed 60 mg PO DAILY 02/25/25 Unknown History release rivastigmine tartrate 1.5 mg 1.5 mg PO BID 03/23/25 U nknown History capsule Allergies Allergy/AdvReac Type Severity Reaction Status Date / Time No Known Allergies Allergy Verified 03/23/25 19:09 Review of Systems 2 Review of Systems: All systems are reviewed and are negative unless stated otherwise in the HPI. 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 Code status: Full code. Smoking packs per day: 1 Smoking cigarettes per day: 20.0 Years smoked: 30 Smoking pack-years: 30.00 Smoking status: Heavy tobacco smoker Tobacco type: cigarettes Alcohol intake: current Substance use: never Substance use type: does not use Do You Feel Safe in your Home?: Yes Lack of Transportation: No Lack of Food: Never True Current Housing: I Have Housing Concerned About Future Housing: No Difficulty Paying Gas/Electric Bills: No Difficulty Paying for Meds: No Currently Unemployed: No Education: Bachelor's Degree Difficulty w/ Childcare or Family Care: No Living arrangements: halfway Spiritual care concerns: No Exam 2 Narrative: General: Alert, awake, afebrile, in no acute distress. HEENT: PERRL, no rhinorrhea, no post nasal drip, oropharynx clear. Neck: Trachea midline, no JVD, no lymphadenopathy. Cardiovascular: Regular rate and rhythm, no murmurs, rubs or gallops, no peripheral edema. Respiratory: Clear to auscultation bilaterally, no tachypnea, no wheezing, no rhonchi, no rubs, no respiratory distress. Abdomen: Soft, nontender, nondistended, no rebound, no guarding, no peritoneal signs. Musculoskeletal: No joint swelling or deformity, normal muscle tone, patient is able to bend her right knee and right hip slightly although range of motion at the right hip joint is limited secondary to pain, tenderness to palpation over the right wrist joint, no deformity or swelling noted to the wrist joint. Skin: No rashes or petechia, no signs of infection. Psychiatric: Alert and oriented, normal behavior and judgment for situation. Neurological: Alert and oriented to person, place, and time. Follows all commands. No focal deficits, speech is clear and fluent. Course Vital Signs Vital signs: Vital Signs Temperature 98.1 F 03/23/25 19:01 Pulse Rate 68 03/23/25 19:01 Respiratory Rate 18 03/23/25 19:01 Blood Pressure 129/75 03/23/25 19:01 Pulse Oximetry 94 03/23/25 19:01 Oxygen Delivery Room Air 03/23/25 19:01 Temperature 98.1 F 03/23/25 19:01 Pulse Rate 85 03/23/25 21:02 Respiratory Rate 16 03/23/25 21:02 Blood Pressure 139/84 03/23/25 21:02 Pulse Oximetry 96 03/23/25 21:02 Oxygen Delivery Room Air 03/23/25 19:01 MDM - Fall MDM Narrative Medical decision making narrative: The patient was evaluated by myself in the emergency department. History is obtained from patient who is an independent historian and physical exam was performed. External medical records were reviewed at this time. IV was established and pertinent tests were ordered. Patient was administered 4 mg of IV morphine and 4 mg IV Zofran. Imaging studies obtained included right wrist x-ray and AP pelvis with right hip x-rays which was independently interpreted by me revealing: IMPRESSION: 1. No acute fracture or dislocation of the right wrist. 2. Prosthesis fracture of the subtrochanteric right femur. 3. Healing fracture of the right superior and inferior pubic rami. Differential diagnosis considerations include fracture, dislocation, musculoskeletal strain. Comorbidities impacting this visit include history of right hip replacement. I have evaluated and discussed social determinants of health with the patient that could potentially impact subsequent diagnosis and treatment plans. On repeat assessment of the patient, reevaluation revealed that the patient is doing well and is in no acute distress. Patient symptoms have improved since she arrived to our emergency department. Repeat vital signs were all reviewed and noted to be stable. Differential diagnosis and treatment plan were discussed with the patient at bedside. Patient agrees with discussion and after shared medical decision making agrees with transfer. All questions were answered to the patient's satisfaction. Case was discussed with the on-call orthopedic surgeon Dr. Samuels who informed me that given that this is a periprosthetic fracture, patient will need to be transferred to a trauma center. [facility] transfer line was contacted at 2024 and transfers initiated. Spoke with the on-call Orthopedics surgeon Dr. De La Cruz at 2037 at [facility] where they do revision/periprosthetic surgeries who wanted me to reach out to the patients Orthopedic surgeon Dr. Denny who performed her surgery 25 years ago. I did speak with Dr. Denny at 2044 who informed me that he does not do revision surgery, requesting patient to be transferred. The [facility] transfer line was contacted again at 2049 and informed of this. Case was discussed with the on-call hospitalist Dr. Jackson at 2121 who accepted the patient as a direct admit, however, he wanted blood work obtained prior to bed release. At this time blood work was obtained including a lactic acid and a CPK which were noted to be within normal limits. [facility] transfer line was contacted again at 0 and informed of patient's blood work. Patient is accepted and currently pending bed placement. Lab Data 03/23/25 21:36 03/23/25 21:36 Labs: Lab Results 03/23/25 03/23/25 Range/Units 21:20 21:36 WBC 9.9 (4.5-10.0) K/mm3 RBC 4.45 (4.2-5.4) M/mm3 Hgb 12.3 (12.0-15.0) g/dL Hct 39.9 (37.0-47.0) % MCV 89.7 (80-100) fl MCH 27.6 (26-34) pg MCHC 30.8 L (32-36) g/dl RDW 16.7 H (11.5-14.5) % Plt Count 342 (150-375) k/mm3 MPV 9.5 (7.4-10.4) fl Immature Gran % (Auto) 0.7 H (0-0.5) % Neut % (Auto) 73.0 (45.5-73.1) % Lymph % (Auto) 17.0 L (18.3-44.2) % [place] % (Auto) 7.7 (2.6-8.5) % Eos % (Auto) 1.1 (0-4.4) % Baso % (Auto) 0.5 (0.2-1.2) % Lymph # (Auto) 1.69 (0.9-3.2) K/mm3 [place] # (Auto) 0.8 H (0.1-0.6) K/mm3 Eos # (Auto) 0.1 (0-0.3) K/mm3 Baso # (Auto) 0.1 (0.0-0.1) K/mm3 Abs Immat Gran (auto) 0.07 H (0.00-0.031) K/mm3 Absolute Neuts (auto) 7.2 H (1.3-6.7) K/mm3 Absolute Nucleated RBC 0.000 (0.0-0.012) K/mm3 Nucleated RBC % 0.0 (0.0-0.2) % Sodium 136 L (137-145) mmol/L Potassium 4.1 (3.4-5.0) mmol/L Chloride 107 (98-107) mmol/L Carbon Dioxide 25 (22-30) mmol/L Anion Gap 4 (4-12) mmol/L BUN 21 H (7-17) mg/dL Creatinine 0.71 (0.7-1.0) mg/dL Estim Creat Clear Calc 43 ml/min Estimated GFR > 60 (59 - ) Glucose 91 (65-110) mg/dL Lactic Acid 0.7 (0.7-2.0) mmol/L Calcium 8.1 L (8.4-10.2) mg/dL Magnesium 2.4 H (1.6-2.3) mg/dL Total Bilirubin 0.2 (0.2-1.3) mg/dL AST 55 H (14-36) U/L ALT 30 (6-35) U/L Alkaline Phosphatase 89 (38-126) U/L Total Creatine Kinase 35 (30-135) U/L Total Protein 6.2 L (6.3-8.2) g/dL Albumin 3.1 L (3.5-5.1) g/dL Urine Color Yellow (Yellow) Urine Appearance Clear (Clear) Urine pH 7.5 (5.0-9.0) Ur Specific [place] 1.017 (1.001-1.035) Urine Protein 2+ H (Negative) mg/dL Urine Glucose (UA) Negative (Negative) mg/dL Urine Ketones Negative (Negative) mg/dL Ur Blood (Man) Trace (Negative) Urine Nitrate Negative (Negative) Urine Bilirubin Negative (Negative) Urine Urobilinogen 1.0 (<2.0) mg/dL Leukocyte Esterase Rfl Negative (Negative) RY/UL Urine RBC 21-50 H (0-2) /hpf Urine WBC 0-5 (0-3) /hpf Ur Squamous Epith Cells None seen (Few) /hpf Urine Bacteria None seen /hpf Urine Casts 0-2 Blood Type A Positive Antibody Screen Pending Discharge Plan Discharge Clinical Impression: Fall from ground level, Periprosthetic fracture around internal prosthetic right hip joint Patient Disposition: Acute Care Hospital Condition: Improved Patient Language: Moldovan Prescriptions: No Action levothyroxine 112 mcg tablet See Rx Instructions .ROUTE .COMPLEX Qty: 90 1RF Dose Instruction: Take 1 tablet by mouth once daily Patient Comments: QAM Rx Instructions: Take 1 tablet by mouth once daily rosuvastatin 40 mg tablet See Rx Instructions .ROUTE .COMPLEX Qty: 90 0RF Dose Instruction: Take 1 tablet by mouth once daily Patient Comments: HS Rx Instructions: Take 1 tablet by mouth once daily amitriptyline 50 mg tablet 50 mg PO QHS Qty: 90 1RF duloxetine 60 mg capsule,delayed release(DR/EC) 60 mg PO DAILY hydroxyzine HCl 25 mg tablet 25 mg PO QID PRN (Reason: itching) Qty: 120 0RF magnesium citrate [OneLAX Magnesium Citrate] Solution 150 ml PO DAILY ezetimibe 10 mg tablet See Rx Instructions .ROUTE .COMPLEX Qty: 90 0RF Dose Instruction: Take 1 tablet by mouth once daily Patient Comments: HS Rx Instructions: Take 1 tablet by mouth once daily nitroglycerin 0.4 mg tablet, sublingual 0.4 mg sublingual Q5M PRN (Reason: chest pain) diazepam 10 mg tablet 10 mg PO TID PRN (Reason: anxiety) Qty: 90 1RF isosorbide mononitrate 60 mg tablet extended release 24 hr See Rx Instructions .ROUTE .COMPLEX Qty: 90 0RF Dose Instruction: Take 1 tablet by mouth once daily Patient Comments: HS Rx Instructions: Take 1 tablet by mouth once daily pantoprazole [Protonix] 20 mg tablet,delayed release (DR/EC) 40 mg PO HS Qty: 90 0RF rivastigmine tartrate 1.5 mg capsule 1.5 mg PO BID Follow-up/Referrals: Gume Bermudez MD [Primary Care Provider, Internal Medicine] Time of Disposition: 20:27
[2025-03-23] MEDS: ONDANSETRON INJ 4 MG/2 ML VIAL IV PUSH (20:59)
[2025-03-23] MEDS: MORPHINE SULFATE (*CRX) 4 MG/ML INJ 2 MG IV PUSH ×2 (20:59→22:29)
[2025-03-23 21:02] VITALS: BP 139/84; PULSE 85; RESP 16; O2SAT 96
[2025-03-23 21:31] LABS: Add Urine Microscopic? YES; Appearance Urine Clear (Clear); Glucose Urine UA Negative (Negative); Leukocyte Esterase Ur Negative LEU/UL (Negative); Nitrate Urine Negative (Negative); Non Pathogenic Casts 0-2; Specific Grav Ur 1.017 (1.001-1.035)
[2025-03-23 21:44] LABS: Hematocrit 39.9 % (37.0-47.0); Hemoglobin 12.3 g/dL (12.0-15.0); Immature Granulocyte Percent A 0.7 % (0-0.5); Lymphocytes Absolute Auto 1.69 K/mm3 (0.9-3.2); Mean Corpuscular HGB Conc 30.8 g/dl (32-36); Mean Corpuscular Hemoglobin 27.6 pg (26-34); Mean Corpuscular Volume 89.7 fl (80-100); Nucleated Red Blood Cells Absolute Auto 0.000 K/mm3 (0.0-0.012); Nucleated Red Blood Cells Perc 0.0 % (0.0-0.2); Platelet Count Result 342 k/mm3 (150-375); Red Blood Count 4.45 M/mm3 (4.2-5.4); White Blood Count 9.9 K/mm3 (4.5-10.0)
[2025-03-23 21:56] LABS: Alanine Aminotransferase 30 U/L (6-35); Albumin Level 3.1 g/dL (3.5-5.1); Alkaline Phosphatase 89 U/L (38-126); Anion Gap 4 mmol/L (4-12); Aspartate Amino Transferase 55 U/L (14-36); Bilirubin,Total 0.2 mg/dL (0.2-1.3); Blood Urea Nitrogen 21 mg/dL (7-17); Calcium 8.1 mg/dL (8.4-10.2); Carbon Dioxide 25 mmol/L (22-30); Chloride 107 mmol/L (98-107); Creatine Kinase 35 U/L (30-135); Estimated CRCL calculation 43 ml/min; Estimated Glomerular Filt Rate > 60; Glucose 91 mg/dL (65-110); Magnesium 2.4 mg/dL (1.6-2.3); Potassium 4.1 mmol/L (3.4-5.0); Sodium 136 mmol/L (137-145); Total Protein 6.2 g/dL (6.3-8.2)
[2025-03-23 22:31] VITALS: BP 148/83; PULSE 91; RESP 18; O2SAT 95
[2025-03-23 22:59] VITALS: BP 142/79; PULSE 66; RESP 17; TEMP 36.6; O2SAT 89
--- NOTE | 2025-03-23 23:25 | PC.NURSE ---
Call placed to son Rehan (Located in [place]) to update on transfer and diagnosis of patient
== END 2025-03-24 01:22 | disposition short-term general hospital (02) ==
PROVIDERS: Emergency Provider Emergency Medicine; PCP Internal Medicine
DX: M97.01XA Periprosthetic fracture around internal prosthetic right hip joint, initial encounter (principal); M25.531 Pain in right wrist; W01.0XXA Fall on same level from slipping, tripping and stumbling without subsequent striking against object, initial encounter; F17.210 Nicotine dependence, cigarettes, uncomplicated
CPT/HCPCS: 36415; 73110; 73502; 80053; 81001; 82550; 83605; 83735; 85025; 86850; 86900; 86901; 96374; 96375; 96376; 99285; J2270; J2405